=== PATIENT | male | born 1950 | race Caucasian/White ===

== ENCOUNTER → 2016-05-18 | Outpatient (CLI) | payer BC ==
[~2016-05-18] MED LIST: CHOL20009 PO; CLL250 PO; CLOT10TR PO; CYAN100020 PO; HYT/2 PO; INSDGI SC; LORA-554 PO; LOSA1TAB38 PO; MAGN400T6 PO; MELA1TAB22 PO; MULT-506 PO; OMEP20CA59 PO; PRAV20TA PO; PRED-301 PO; PRG5 PO
== END | disposition home or self-care (01) ==
LOC: C.PATHSPEC 16:57
PROVIDERS: ATTEND Urology
DX: N40.1 Benign prostatic hyperplasia with lower urinary tract symptoms (principal); C67.9 Malignant neoplasm of bladder, unspecified

== ENCOUNTER 2019-06-06 13:43 | Inpatient (IN) ==
[2019-06-06] MEDS ORDERED: ACETAMINOPHEN 500 MG TAB PO STA (14:40)
--- NOTE | 2019-06-06 14:57 | XRay Report ---
XR chest 1V portable HISTORY: 69 years-old Male SEPSIS acute sepsis COMPARISON: Chest radiograph 06/01/2018 TECHNIQUE: Portable AP view of the chest FINDINGS: Cardiac silhouette is enlarged. Prior median sternotomy. No pneumothorax, pleural effusion, focal air space consolidation or overt pulmonary edema. Minimal bibasilar atelectasis/scarring. Degenerative ch anges of the shoulders and spine. Surgical clips project over the left lung base. IMPRESSION: 1. Cardiomegaly without acute process. 2. Mild left basilar densities suggest atelectasis/scarring. ACT 112: Negative or not required by law. The above report was generated using voice recognition software. It may contain grammatical, syntax o r spelling errors. Electronically signed by: Leo Mancuso M.D. 06/06/2019 2:56 PM
[2019-06-06 15:54] LABS: Basophils # (auto) 0.01 K/uL (0-0.2); Basophils % (auto) 0.1 %; Hematocrit (blood only) 44.7 % (42-52); Hemoglobin 14.7 g/dL (14.0-18.0); Immature Granulocytes # (auto) 0.02 K/uL (0.00-0.02); Immature Granulocytes % (auto) 0.3 %; Lymphocytes # (auto) 0.85 K/uL (1.2-3.4); Lymphocytes % (auto) 12.3 %; Mean Corpuscular Hemoglobin 28.5 pg (25-34); Mean Corpuscular Hgb Conc 32.9 g/dL (32-36); Mean Corpuscular Volume 86.8 fL (80-100); Mean Platelet Volume 9.5 fL (7.4-10.4); Monocytes % (auto) 20.3 %; Neutrophils # (auto) 4.62 K/uL (1.4-6.5); Platelet Count 185 K/uL (130-400); RDW Coefficient of Variation 14.5 % (11.5-14.5); RDW Standard Deviation 46.2 fL (36.4-46.3); Red Blood Count 5.15 M/uL (4.7-6.1)
[2019-06-06 15:58] LABS: Potassium 3.9 mmol/L (3.5-5.1)
[2019-06-06 16:03] LABS: Albumin Level 3.7 gm/dl (3.4-5.0); BUN Creatinine Ratio 19.4 (10-20); Creatinine Clr Calc Pharmacy 57.4 ml/min; Est GFR (African American) 57.2; Est GFR (Non-African American) 49.3; Magnesium 2.1 mg/dl (1.8-2.4)
[2019-06-06 16:06] LABS: INR 1.2 (0.9-1.1); Partial Thromboplastin Ratio 1.2; Partial Thromboplastin Time 31.6 Seconds (21.0-31.0); Prothrombin Time 11.7 Seconds (9.0-12.0)
[2019-06-06 16:08] LABS: Albumin Globulin Ratio 0.9 (0.9-2); Bilirubin,Total 1.4 mg/dl (0.2-1); Globulin 3.9 gm/dl (2.5-4.0); Total Protein 7.6 gm/dl (6.4-8.2); Troponin I 0.025 ng/ml (0-0.045)
[2019-06-06 16:11] LABS: Influenza A virus by PCR Neg for Influ A (Neg); Influenza B virus by PCR Neg for Influ B (Neg)
--- NOTE | 2019-06-06 16:17 | Electrocardiogram Report ---
Test Reason : Blood Pressure : / mmHG Vent. 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
[2019-06-06] MEDS ORDERED: OPTIRAY 320 125ml IV PRN (17:48)
--- NOTE | 2019-06-06 18:13 | CT Scan Report ---
CT ANGIOGRAPHY OF THE CHEST, PULMONARY EMBOLUS PROTOCOL CLINICAL HISTORY: Shortness of breath. Chest pain. COMPARISON STUDY: Chest radiograph June 01, 2018 and June 06, 2019. TECHNIQUE: Following IV administration of 118 mL of Optiray-320, helical axial images of the chest we re obtained utilizing the pulmonary embolus protocol. Maximal intensity projections and sagittal and coronal reformats were viewed on an independent 3D workstation. IV contrast was administered withou t complication. Automated exposure control was utilized for the study. A dose lowering technique wa s utilized adhering to the principles of ALARA. CT DOSE: 642.31 mGy.cm FINDINGS: Moderate enlargement of the transplanted heart is noted. Moderate dilatation of the right heart chambers is noted. The IVC and hepatic veins are dilated with reflux of contrast. No pneumothor ax or pleural effusion. No central or lobar pulmonary emboli are identified. The segmental and subseg mental pulmonary arteries are suboptimally assessed due to respiratory motion. There are mild airspac e opacities within the left lower lobes and right upper lobes with tree-in-bud ill-defined opacities. A 7 x 3.4 cm right lower lobe opacity with mild pleural thickening and swelling] represents round at electasis. No suspicious osseous lesions are noted. Upper abdomen demonstrates slight nodularity of t he liver surface. Calcified thoracic lymph nodes are present. IMPRESSION: 1. No central or lobar pulmonary emboli. Segmental and subsegmental pulmonary arteries suboptimally a ssessed due to respiratory motion. 2. Mild left lower lobe and right upper lobe airspace opacities which favor an infectious process suc h as bronchiolitis/bronchopneumonia. 3. Dilatation of the right heart chambers, IVC and hepatic veins with reflux of contrast. This may in dicate right heart dysfunction. 4. 7 x 3.4 cm right lower lobe subpleural opacity consistent with round atelectasis. ACT 112: Negative or not required by law. Electronically signed by: Abrahan Almanzar M.D. 06/06/2019 6:11 PM
[2019-06-06] MEDS ORDERED: PIPERACILL/TAZOBAC CONSULT ACTIVE PRN ×2 (18:16→20:09)
[2019-06-06] MEDS ORDERED: PIPERACILLIN/TAZOBACTAM 4.5 GM/120 ML BAG IV ONE (18:16)
[2019-06-06 18:54] LABS: Appearance Urine Clear (Clear); Bacteria Urine Automated Negative (Negative); Bilirubin Urine Negative (Negative); Blood Urine 1+ (Negative); Color Urine Dark Yellow; Glucose Urine UA Negative (Negative); Ketones Urine 1+ (Negative); Leukocyte Esterase Urine Negative (Negative); Nitrite Urine Negative (Negative); Protein Urine Trace (Negative); Specific Gravity Urine > 1.045 (1.000-1.030); Urobilinogen Urine Negative (Negative); pH Urine 5.5 (4.5-7.5)
--- NOTE | 2019-06-06 19:30 | History & Physical Report ---
Date of Service June 06, 2019 Assessment & Plan (1) Tachypnea: PNA noted on CTA WBC WNL in the setting of chronic immune suppression Tachycardia Nebs x1 with mucomyst, PRN after Blood cx pending UA neg Hb WNL, electrolytes WNL, BS 110 Flu neg BNP with slight elevation Trop 0.025, serials pending EKG with RBBB (2) ARF (acute renal failure): Denies prior hx of elevated cr, no other labs in system Likely dehydration due to above and minimal PO intake Cr 1.4 on admission Monitor with gentle IVF PRN bumex (3) CHF (congestive heart failure): continue home meds Monitor with gentle IVF PRN bumex (4) Diabetes mellitus: SSI PRN Lantus only at home A1c pending (5) Depression: continue home meds (6) Hypertension: continue home meds (7) History of heart transplant: Prednisone, suppressant meds to bring meds from home (8) DVT prophylaxis: Heparin for DVT proph History of Present Illness Primary Care Provider: Guillermo Vega, III, [place] [place] 69 y/o M c/o cough and congestion. Pt states this started around Tuesday and has continued to worsen. No SOB when he is not coughing. Cough feels like something is "stuck and I can't get rid of it". Has felt like he might have a slight fever, but has not taken his temp. Appetite has been down and there has been minimal PO intake the last few days. States he has never been sick like this prior. No hx of inhaler use. Pt did not take today's bumex dosing due to decreased PO intake. He does have some baseline LE swelling. Allergies Allergy/AdvReac Type Severity Reaction Status Date / Time shellfish derived Allergy Severe HIVES Verified 06/06/19 16:41 naproxen Allergy Unknown BROKE OUT Verified 06/06/19 16:41 IN A SWEAT oxycodone AdvReac Intermediate HALLUCINATI Verified 06/06/19 16:41 ON Home Medications Home Medications Medication Instructions Recorded Confirmed Type cholecalciferol (vitamin D3) 50 2,000 unit PO DAILY tab 10/17/18 06/06/19 History mcg (2,000 unit) tablet losartan 100 mg tablet 100 mg PO DAILY tab 10/17/18 06/06/19 History magnesium oxide 400 mg (241.3 mg 400 mg PO DAILY tab 10/17/18 06/06/19 History magnesium) tablet pravastatin 20 mg tablet 20 mg PO HS tab 10/17/18 06/06/19 History melatonin 10 mg capsule 10 mg PO HS PRN 11/07/18 06/06/19 History multivitamin 1 tab PO DAILY 11/07/18 06/06/19 History omeprazole 20 mg capsule,delayed 20 mg PO BID cap 11/07/18 06/06/19 History release tacrolimus 0.5 mg capsule 0.5 mg PO .COMPLEX cap 11/07/18 06/06/19 History insulin glargine 100 unit/mL (3 5 - 10 units SUBCUT DAILY #90 ml 11/28/18 06/06/19 Rx mL) subcutaneous pen blood sugar diagnostic #400 ea 04/11/19 05/10/19 Rx bupropion HCl 100 mg tablet,12 hr 100 mg PO DAILY #90 ea 05/10/19 06/06/19 Rx sustained-release semaglutide 0.25 mg SQ WEEKLY 90 Days #6 ml 05/10/19 06/06/19 Rx tamsulosin 0.4 mg capsule 0.4 mg PO DAILY 05/10/19 06/06/19 History bumetanide 1 mg PO BID 06/06/19 06/06/19 History prednisone 5 mg PO DAILY 06/06/19 06/06/19 History tadalafil [Cialis] 5 mg PO DAILY PRN 06/06/19 06/06/19 History Past Med/Surg History Medical History Depression (Acute) Diabetes mellitus (Acute) Hearing difficulty (Acute) History of subarachnoid hemorrhage (Acute) Hypertension (Acute) Insomnia (Acute) Male erectile disorder of organic origin (Acute) Need for hepatitis C screening test (Acute) Vitamin D insufficiency (Acute) Surgical History History of heart transplant (Acute) Family History Father Heart disease Denies family history of Colon cancer Ovarian cancer Prostate cancer Myocardial infarction Breast cancer Social History Preferred Language: [place] Communication Ability: Effective Visual Impairment: No Limitations Hearing Ability: Normal marital status: Current Living Situation: Spouse current occupational status: retired Feels Safe at Home: Yes Smoking Status: Former smoker Tobacco Type: cigarettes ; Age Quit Using Tobacco: 28 ; packs per day: 0.5 ; Cigarettes Per Day: 3-4 ; Hx Alcohol Use: Yes Alcohol type: wine and hard liquor Alcohol Intake Frequency: Daily Alcohol Intake Frequency Comment: 2-3 daily Hx Substance Use: No Childhood Exposure to Second-Hand Smoke: No Dental Care, Regularly: Yes Physical Activity Frequency: 3-4 Times per Week Seatbelt Use: always Sunscreen Use: Yes Review of Systems Review of Systems: Pertinent positives and negatives reviewed in HPI--all others negative Physical Exam Constitutional: WD/WN, vitals as above + ill appearing Eyes: normal visual weinberg by confrontation and + anicteric sclerae Neck: normal visual inspection and trachea midline Respiratory: normal respiratory effort and + cough; no respiratory distress Auscultation: + diminished lung sounds, + crackles, + rales and + wheezes Cardiovascular: Rate/Rhythm: regular rhythm and + tachycardic Gastrointestinal (Abdomen): Inspection/Auscultation: abdomen not distended Percussion/Palpation: abdomen soft; abdomen nontender Musculoskeletal: Head/Neck/Chest: normocephalic and head atraumatic 1+ pitting LE edema, peripheral pulses intact Skin: no rashes, warm and dry Neurologic: awake; not confused Speech / Cognition: normal speech Psychiatric: A+Ox3, euthymic affect Results & Data Vital Signs (Past 12 Hours) Vital Signs Temp Pulse Pulse Resp BP BP Pulse Ox 06/06/19 18:45 103 H 19 93 06/06/19 18:31 103 H 16 144/99 H 93 06/06/19 18:15 103 H 31 H 94 06/06/19 18:00 108 H 20 93 06/06/19 17:49 104 H 19 93 06/06/19 17:32 108 H 21 91 06/06/19 17:31 106 H 18 129/89 93 06/06/19 17:15 107 H 22 94 06/06/19 17:01 108 H 23 115/88 92 06/06/19 17:00 106 H 22 92 06/06/19 16:45 108 H 23 92 06/06/19 16:31 109 H 27 H 133/87 92 06/06/19 16:21 37.0 C 06/06/19 16:15 111 H 26 H 92 06/06/19 16:01 111 H 21 126/88 92 06/06/19 15:45 113 H 28 H 92 06/06/19 15:31 114 H 29 H 136/90 92 06/06/19 15:30 115 H 19 126/85 93 06/06/19 14:31 37.8 C H 109 H 16 131/88 92 Diagnostic Findings CXR: neg for acute CTA: b/l PNA, neg for PE ECG Rhythm: sinus tachycardia Findings: + RBBB Code Status & VTE Plan Code Status Full code VTE Prophylaxis Plan VTE Prophylaxis will be ordered: Yes PG Care Time/CCT Total # of Minutes Spent Total Time Spent with Patient: Total time spent is greater than 50% in coordination of care (as documented) at patient's floor/unit and/or counseling patient: Coding Level of Care Code 92488 Initial Inpt Care Lvl 3 Diagnoses Tachypnea R06.82 ARF (acute renal failure) N17.9 CHF (congestive heart failure) I50.9 Heart failure type: unspecified Heart failure chronicity: unspecified Diabetes mellitus E11.9; Z79.4 Diabetes mellitus type: type 2 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 Diabetes mellitus complication status: without complication Depression F32.9 Depression Type: unspecified Hypertension I10 Hypertension type: essential hypertension History of heart transplant Z94.1 DVT prophylaxis Z29.9 (1) Hypertension Hypertension type: essential hypertension Qualified Code(s): I10 - Essential (primary) hypertension (2) Diabetes mellitus Diabetes mellitus type: type 2 Diabetes mellitus retirement insulin use: with retirement use Diabetes mellitus complication status: without complication Qualified Code(s): E11.9 - Type 2 diabetes mellitus without complications; Z79.4 - shelter (current) use of insulin (3) Depression Depression Type: unspecified Qualified Code(s): F32.9 - Major depressive disorder, single episode, unspecified (4) CHF (congestive heart failure) Heart failure type: unspecified Heart failure chronicity: unspecified Qualified Code(s): I50.9 - Heart failure, unspecified
--- NOTE | 2019-06-06 19:55 | Emergency Department Note ---
Entered by Drea Rapp acting as a scribe for History of Present Illness General Chief complaint: Cough Stated complaint: COUGH, CHEST CONGESTION Time Seen by Provider: 06/06/19 14:37 Source: patient History of Present Illness Onset (ago): day(s) 4 Location: chest Pain Consistency: + other (persistent) Maximum Pain Intensity: 3 Quality: + other (cough (productive)) Associated symptoms: + denies other symptoms (chest pain, shortness of breath, abdominal pain, unusual pain/swelling in legs) and + other (chest congestion, chest "gurgling," elevated pulse, elevated temperature) The patient is a 69 year old male that is presenting to the Emergency Room with complaints of a persistent productive coughing that started 4 days ago. The patient reports that he has some associated chest congestion. He states that he has some gurgling in his chest. He reports that his temperature and pulse are elevated. He denies any chest pain, shortness of breath, abdominal pain, or unusual swelling/pain in his legs. He notes that he was being seen by his PCP at [facility] when he was referred to the ED for his symptoms. He states that his prov ider was concerned by his respiratory and cardiac symptoms given his history of a heart transplant in 2007. He states that he is taking anti-rejection medication but denies any blood thinner use. He reports that he is followed by a inseam trimming machine operator in [place]. He denies any anti-depressant use. The patient notes that he sleeps on an elevated bed and is unsure if his symptoms worsen with lying flat. Home Medications Home Medications Medication Instructions Recorded Confirmed Type cholecalciferol (vitamin D3) 50 2,000 unit PO DAILY tab 10/17/18 06/06/19 History mcg (2,000 unit) tablet losartan 100 mg tablet 100 mg PO DAILY tab 10/17/18 06/06/19 History magnesium oxide 400 mg (241.3 mg 400 mg PO DAILY tab 10/17/18 06/06/19 History magnesium) tablet pravastatin 20 mg tablet 20 mg PO HS tab 10/17/18 06/06/19 History melatonin 10 mg capsule 10 mg PO HS PRN 11/07/18 06/06/19 History multivitamin 1 tab PO DAILY 11/07/18 06/06/19 History omeprazole 20 mg capsule,delayed 20 mg PO BID cap 11/07/18 06/06/19 History release tacrolimus 0.5 mg capsule 0.5 mg PO .COMPLEX cap 11/07/18 06/06/19 History insulin glargine 100 unit/mL (3 5 - 10 units SUBCUT DAILY #90 ml 11/28/18 06/06/19 Rx mL) subcutaneous pen blood sugar diagnostic #400 ea 04/11/19 05/10/19 Rx bupropion HCl 100 mg tablet,12 hr 100 mg PO DAILY #90 ea 05/10/19 06/06/19 Rx sustained-release semaglutide 0.25 mg SQ WEEKLY 90 Days #6 ml 05/10/19 06/06/19 Rx tamsulosin 0.4 mg capsule 0.4 mg PO DAILY 05/10/19 06/06/19 History bumetanide 1 mg PO BID 06/06/19 06/06/19 History prednisone 5 mg PO DAILY 06/06/19 06/06/19 History tadalafil [Cialis] 5 mg PO DAILY PRN 06/06/19 06/06/19 History Allergies Allergy/AdvReac Type Severity Reaction Status Date / Time shellfish derived Allergy Severe HIVES Verified 06/06/19 16:41 naproxen Allergy Unknown BROKE OUT Verified 06/06/19 16:41 IN A SWEAT oxycodone AdvReac Intermediate HALLUCINATI Verified 06/06/19 16:41 ON Past Med/Surg History Medical History Depression (Acute) Diabetes mellitus (Acute) Hearing difficulty (Acute) History of subarachnoid hemorrhage (Acute) Hypertension (Acute) Insomnia (Acute) Male erectile disorder of organic origin (Acute) Need for hepatitis C screening test (Acute) Vitamin D insufficiency (Acute) Surgical History History of heart transplant (Acute) Family History Father Heart disease Denies family history of Colon cancer Ovarian cancer Prostate cancer Myocardial infarction Breast cancer Social History Preferred Language: [place] Communication Ability: Effective Visual Impairment: No Limitations Hearing Ability: Normal Supervisor Powdered Sugar Required: No Beliefs That Will Affect Care: None marital status: Current Living Situation: Spouse current occupational status: retired Feels Safe at Home: Yes Smoking Status: Former smoker Tobacco Type: cigarettes and smokeless tobacco ; Age Quit Using Tobacco: 28 ; packs per day: 0.5 ; Cigarettes Per Day: 3-4 ; Hx Alcohol Use: Yes Alcohol type: wine and hard liquor Alcohol Intake Frequency: Daily Alcohol Intake Frequency Comment: 2-3 daily Hx Substance Use: No Childhood Exposure to Second-Hand Smoke: No Dental Care, Regularly: Yes Physical Activity Frequency: 3-4 Times per Week Seatbelt Use: always Sunscreen Use: Yes Review of Systems See HPI for pertinent positives & negatives. and A total of 10 systems reviewed and were otherwise negative Physical Exam Vital Signs Vital Signs - 24 hr 06/06/19 14:31 06/06/19 15:30 06/06/19 15:31 Temperature 37.8 C H Temperature Source Oral Pulse Rate 109 H 114 H Pulse Rate [Apical] 115 H Pulse Rate from SpO2 Sensor 114 H Respiratory Rate 16 19 29 H Respiratory Effort / Characteristics Non-Labored Respiratory Depth Normal Blood Pressure 131/88 136/90 Blood Pressure [Right Arm] 126/85 Blood Pressure Mean 102 97 Blood Pressure Mean [Right Arm] 98 Blood Pressure Position Sitting Pulse Oximetry 92 93 92 Oxygen Delivery Method Room Air Room Air Sepsis Recent Fever Within 48 Hours No Sepsis New/Unexplained Change in Mental Status No Sepsis Action Taken by Nursing No Action Required 06/06/19 15:45 06/06/19 16:01 06/06/19 16:15 Temperature Temperature Source Pulse Rate 113 H 111 H 111 H Pulse Rate [Apical] Pulse Rate from SpO2 Sensor 113 H 112 H 107 H Respiratory Rate 28 H 21 26 H Respiratory Effort / Characteristics Respiratory Depth Blood Pressure 126/88 Blood Pressure [Right Arm] Blood Pressure Mean 109 Blood Pressure Mean [Right Arm] Blood Pressure Position Pulse Oximetry 92 92 92 Oxygen Delivery Method Sepsis Recent Fever Within 48 Hours Sepsis New/Unexplained Change in Mental Status Sepsis Action Taken by Nursing 06/06/19 16:21 06/06/19 16:31 06/06/19 16:45 Temperature 37.0 C Temperature Source Oral Pulse Rate 109 H 108 H Pulse Rate [Apical] Pulse Rate from SpO2 Sensor 108 H 108 H Respiratory Rate 27 H 23 Respiratory Effort / Characteristics Respiratory Depth Blood Pressure 133/87 Blood Pressure [Right Arm] Blood Pressure Mean 101 Blood Pressure Mean [Right Arm] Blood Pressure Position Pulse Oximetry 92 92 Oxygen Delivery Method Sepsis Recent Fever Within 48 Hours Sepsis New/Unexplained Change in Mental Status Sepsis Action Taken by Nursing 06/06/19 17:00 06/06/19 17:01 06/06/19 17:15 Temperature Temperature Source Pulse Rate 106 H 108 H 107 H Pulse Rate [Apical] Pulse Rate from SpO2 Sensor 103 H 104 H 104 H Respiratory Rate 22 23 22 Respiratory Effort / Characteristics Respiratory Depth Blood Pressure 115/88 Blood Pressure [Right Arm] Blood Pressure Mean 90 Blood Pressure Mean [Right Arm] Blood Pressure Position Pulse Oximetry 92 92 94 Oxygen Delivery Method Sepsis Recent Fever Within 48 Hours Sepsis New/Unexplained Change in Mental Status Sepsis Action Taken by Nursing 06/06/19 17:31 06/06/19 17:32 06/06/19 17:49 Temperature Temperature Source Pulse Rate 106 H 108 H 104 H Pulse Rate [Apical] Pulse Rate from SpO2 Sensor 106 H 105 H 104 H Respiratory Rate 18 21 19 Respiratory Effort / Characteristics Respiratory Depth Blood Pressure 129/89 Blood Pressure [Right Arm] Blood Pressure Mean 97 Blood Pressure Mean [Right Arm] Blood Pressure Position Pulse Oximetry 93 91 93 Oxygen Delivery Method Sepsis Recent Fever Within 48 Hours Sepsis New/Unexplained Change in Mental Status Sepsis Action Taken by Nursing 06/06/19 18:00 06/06/19 18:15 06/06/19 18:31 Temperature Temperature Source Pulse Rate 108 H 103 H 103 H Pulse Rate [Apical] Pulse Rate from SpO2 Sensor 93 H 101 H 103 H Respiratory Rate 20 31 H 16 Respiratory Effort / Characteristics Respiratory Depth Blood Pressure 144/99 H Blood Pressure [Right Arm] Blood Pressure Mean 108 Blood Pressure Mean [Right Arm] Blood Pressure Position Pulse Oximetry 93 94 93 Oxygen Delivery Method Sepsis Recent Fever Within 48 Hours Sepsis New/Unexplained Change in Mental Status Sepsis Action Taken by Nursing 06/06/19 18:45 Temperature Temperature Source Pulse Rate 103 H Pulse Rate [Apical] Pulse Rate from SpO2 Sensor 98 H Respiratory Rate 19 Respiratory Effort / Characteristics Respiratory Depth Blood Pressure Blood Pressure [Right Arm] Blood Pressure Mean Blood Pressure Mean [Right Arm] Blood Pressure Position Pulse Oximetry 93 Oxygen Delivery Method Sepsis Recent Fever Within 48 Hours Sepsis New/Unexplained Change in Mental Status Sepsis Action Taken by Nursing GENERAL: Patient is awake, alert, and in no acute distress.Patient is resting comfortably and showing no signs of anxiety EYES: The conjunctivae are clear. The pupils are round and reactive. EARS, NOSE, MOUTH AND THROAT: The nose is without any evidence of any deformity. Mucous membranes are moist.Tongue is midline NECK: The neck is nontender and supple. RESPIRATORY: Lung sounds diminished in both bases. Rales in both bases. Mild conversational dyspnea. CARDIOVASCULAR: Tachycardic rate and regular rhythm noted to auscultation. No definite murmur noted. GASTROINTESTINAL: The abdomen is soft. Bowel sounds are present in all quadrants. Abdomen is nontender. MUSCULOSKELETAL/EXTREMITIES: There is no evidence of gross deformity. Full range of motion is noted in the hips and shoulders. SKIN: There is no obvious evidence of any rash. There are no petechiae, pallor or cyanosis noted. Pedal edema bilaterally. NEUROLOGIC: Patient is awake alert and oriented x3. Course Course 1439:The patient was evaluated in room C01B. A complete history and physical examination was performed. 1735: I updated the patient on his current lab and imaging results. A CT chest has been ordered for further evaluation. 1832: I discussed the patient's case with Dr. King, [facility], who will evaluate the patient for further management and care. 1845: Upon reevaluation, the patient is resting comfortably. I discussed laboratory and radiographic results with the patient. He verbalized agreement of the treatment plan. The patient will be evaluated for further management and care. Administered Medications Bumetanide (Bumex) 1 mg PO [id number] MICK Stop: 07/06/19 20:59 Last Admin: 06/06/19 21:24 Dose: 1 mg Documented by: [id number] Heparin Sodium (Porcine) (Heparin Sodium (Porcine)) 5,000 units SQ Q8 MICK Stop: 07/06/19 21:59 Last Admin: 06/06/19 21:33 Dose: Not Given Documented by: [id number] Potassium Chloride/Sodium Chloride (Normal Saline W/20 Meq Kcl) 20 meq in 1,000 mls @ 50 mls/hr IV .Q20H MICK Stop: 07/06/19 20:59 Last Admin: 06/06/19 21:22 Dose: 50 mls/hr Documented by: [id number] Insulin Aspart (Novolog Flexpen) 0 units SC ACHS MICK Stop: 07/06/19 20:59 Last Admin: 06/06/19 21:20 Dose: Not Given Documented by: [id number] Cosigned by: [id number] Ioversol (Optiray 320 125ml) 118 ml IV ONCE PRN PRN Reason: Interaction Checking Stop: 06/10/19 17:47 Last Admin: 06/06/19 17:48 Dose: 118 ml Documented by: [id number] Pantoprazole Sodium (Protonix) 40 mg PO BID MICK Stop: 07/06/19 20:59 Last Admin: 06/06/19 21:25 Dose: 40 mg Documented by: [id number] Pravastatin Sodium (Pravachol) 20 mg PO HS MICK Stop: 07/06/19 20:59 Last Admin: 06/06/19 21:24 Dose: 20 mg Documented by: [id number] Tacrolimus (Prograf) 0.5 mg PO HS MICK Stop: 07/06/19 20:59 Last Admin: 06/06/19 21:24 Dose: 0.5 mg Documented by: [id number] Discontinued Medications Acetaminophen (Tylenol) 1,000 mg PO NOW STA Stop: 06/06/19 14:41 Last Admin: 06/06/19 15:06 Dose: 1,000 mg Documented by: [id number] Acetylcysteine (Mucomyst 20%) 5 ml INH ONE ONE Stop: 06/06/19 20:10 Last Admin: 06/06/19 20:47 Dose: 5 ml Documented by: [id number] Albuterol (Duoneb) 3 ml NEB NOW STA Stop: 06/06/19 20:10 Last Admin: 06/06/19 20:46 Dose: 3 ml Documented by: [id number] Piperacillin Sod/Tazobactam Sod (Zosyn) 4.5 gm in 120 mls @ 240 mls/hr IV NOW ONE Stop: 06/06/19 18:45 Last Infusion: 06/06/19 19:33 Dose: 0 mls/hr Documented by: [id number] Admin: 06/06/19 18:46 Dose: 240 mls/hr Documented by: [id number] Medical Decision Making Differential Diagnosis Differential diagnoses includes but is not limited to pneumonia, bronchitis, COPD/Asthma exacerbation, pneumothorax, pulmonary embolism, congestive heart failure, acute coronary syndrome Medical Records Attestation: I reviewed the patient's medical records. Home Medications Current Medication List: was personally reviewed by me Laboratory Data Attestation: I reviewed the patient's lab results. Result diagrams: 06/06/19 15:18 06/06/19 15:18 Lab Results 06/06/19 06/06/19 06/06/19 Range/Units 15:18 15:18 15:18 WBC 6.90 (4.8-10.8) K/uL RBC 5.15 (4.7-6.1) M/uL Hgb 14.7 (14.0-18.0) g/dL Hct 44.7 (42-52) % MCV 86.8 (80-100) fL MCH 28.5 (25-34) pg MCHC 32.9 (32-36) g/dL RDW Std Deviation 46.2 (36.4-46.3) fL RDW Coeff of Miranda 14.5 (11.5-14.5) % Plt Count 185 (130-400) K/uL MPV 9.5 (7.4-10.4) fL Immature Gran % (Auto) 0.3 % Neut % (Auto) 67.0 % Lymph % (Auto) 12.3 % Hall % (Auto) 20.3 % Eos % (Auto) 0.0 % Baso % (Auto) 0.1 % Immature Gran # (Auto) 0.02 (0.00-0.02) K/uL Neut # (Auto) 4.62 (1.4-6.5) K/uL Lymph # (Auto) 0.85 L (1.2-3.4) K/uL Hall # (Auto) 1.40 H (0.11-0.59) K/uL Eos # (Auto) 0.00 (0-0.5) K/uL Baso # (Auto) 0.01 (0-0.2) K/uL PT 11.7 (9.0-12.0) Seconds INR 1.2 H (0.9-1.1) APTT 31.6 H (21.0-31.0) Seconds PTT Ratio 1.2 Sodium 137 (136-145) mmol/L Potassium 3.9 (3.5-5.1) mmol/L Chloride 102 (98-107) mmol/L Carbon Dioxide 26 (21-32) mmol/L Anion Gap 9.0 (3-11) BUN 27 H (7-18) mg/dl Creatinine 1.42 H (0.6-1.4) mg/dl Est Cr Clr Drug Dosing 57.4 ml/min Est GFR ( Amer) 57.2 Est GFR (Non-Af Amer) 49.3 BUN/Creatinine Ratio 19.4 (10-20) Glucose 110 H (70-99) mg/dl Lactate (0.4-2.0) mmol/L Calcium 9.0 (8.5-10.1) mg/dl Magnesium 2.1 (1.8-2.4) mg/dl Total Bilirubin 1.4 H (0.2-1) mg/dl AST 40 H (15-37) U/L ALT 32 (12-78) U/L Alkaline Phosphatase 76 (45-117) U/L Troponin I 0.025 (0-0.045) ng/ml NT-Pro-B Natriuret Pep 1244 H (0-900) pg/ml Total Protein 7.6 (6.4-8.2) gm/dl Albumin 3.7 (3.4-5.0) gm/dl Globulin 3.9 (2.5-4.0) gm/dl Albumin/Globulin Ratio 0.9 (0.9-2) Procalcitonin (0-0.5) ng/ml Urine Color Urine Appearance (Clear) Urine pH (4.5-7.5) Ur Specific [place] (1.000-1.030) Urine Protein (Negative) Urine Glucose (UA) (Negative) Urine Ketones (Negative) Urine Blood (Negative) Urine Nitrite (Negative) Urine Bilirubin (Negative) Urine Urobilinogen (Negative) Ur Leukocyte Esterase (Negative) Urine WBC (Auto) (0-5) /hpf Urine RBC (Auto) (0-4) /hpf U Hyaline Cast (Auto) (0-5) /lpf U Epithel Cells (Auto) (0-5) /lpf Urine Bacteria (Auto) (Negative) Influenza Type A (PCR) (Neg) Influenza Type B (PCR) (Neg) 06/06/19 06/06/19 06/06/19 Range/Units 15:18 15:19 15:28 WBC (4.8-10.8) K/uL RBC (4.7-6.1) M/uL Hgb (14.0-18.0) g/dL Hct (42-52) % MCV (80-100) fL MCH (25-34) pg MCHC (32-36) g/dL RDW Std Deviation (36.4-46.3) fL RDW Coeff of Miranda (11.5-14.5) % Plt Count (130-400) K/uL MPV (7.4-10.4) fL Immature Gran % (Auto) % Neut % (Auto) % Lymph % (Auto) % Hall % (Auto) % Eos % (Auto) % Baso % (Auto) % Immature Gran # (Auto) (0.00-0.02) K/uL Neut # (Auto) (1.4-6.5) K/uL Lymph # (Auto) (1.2-3.4) K/uL Hall # (Auto) (0.11-0.59) K/uL Eos # (Auto) (0-0.5) K/uL Baso # (Auto) (0-0.2) K/uL PT (9.0-12.0) Seconds INR (0.9-1.1) APTT (21.0-31.0) Seconds PTT Ratio Sodium (136-145) mmol/L Potassium (3.5-5.1) mmol/L Chloride (98-107) mmol/L Carbon Dioxide (21-32) mmol/L Anion Gap (3-11) BUN (7-18) mg/dl Creatinine (0.6-1.4) mg/dl Est Cr Clr Drug Dosing ml/min Est GFR ( Amer) Est GFR (Non-Af Amer) BUN/Creatinine Ratio (10-20) Glucose (70-99) mg/dl Lactate 1.2 (0.4-2.0) mmol/L Calcium (8.5-10.1) mg/dl Magnesium (1.8-2.4) mg/dl Total Bilirubin (0.2-1) mg/dl AST (15-37) U/L ALT (12-78) U/L Alkaline Phosphatase (45-117) U/L Troponin I (0-0.045) ng/ml NT-Pro-B Natriuret Pep (0-900) pg/ml Total Protein (6.4-8.2) gm/dl Albumin (3.4-5.0) gm/dl Globulin (2.5-4.0) gm/dl Albumin/Globulin Ratio (0.9-2) Procalcitonin 0.19 (0-0.5) ng/ml Urine Color Urine Appearance (Clear) Urine pH (4.5-7.5) Ur Specific [place] (1.000-1.030) Urine Protein (Negative) Urine Glucose (UA) (Negative) Urine Ketones (Negative) Urine Blood (Negative) Urine Nitrite (Negative) Urine Bilirubin (Negative) Urine Urobilinogen (Negative) Ur Leukocyte Esterase (Negative) Urine WBC (Auto) (0-5) /hpf Urine RBC (Auto) (0-4) /hpf U Hyaline Cast (Auto) (0-5) /lpf U Epithel Cells (Auto) (0-5) /lpf Urine Bacteria (Auto) (Negative) Influenza Type A (PCR) Neg for Influ A (Neg) Influenza Type B (PCR) Neg for Influ B (Neg) 06/06/19 Range/Units 18:25 WBC (4.8-10.8) K/uL RBC (4.7-6.1) M/uL Hgb (14.0-18.0) g/dL Hct (42-52) % MCV (80-100) fL MCH (25-34) pg MCHC (32-36) g/dL RDW Std Deviation (36.4-46.3) fL RDW Coeff of Miranda (11.5-14.5) % Plt Count (130-400) K/uL MPV (7.4-10.4) fL Immature Gran % (Auto) % Neut % (Auto) % Lymph % (Auto) % Hall % (Auto) % Eos % (Auto) % Baso % (Auto) % Immature Gran # (Auto) (0.00-0.02) K/uL Neut # (Auto) (1.4-6.5) K/uL Lymph # (Auto) (1.2-3.4) K/uL Hall # (Auto) (0.11-0.59) K/uL Eos # (Auto) (0-0.5) K/uL Baso # (Auto) (0-0.2) K/uL PT (9.0-12.0) Seconds INR (0.9-1.1) APTT (21.0-31.0) Seconds PTT Ratio Sodium (136-145) mmol/L Potassium (3.5-5.1) mmol/L Chloride (98-107) mmol/L Carbon Dioxide (21-32) mmol/L Anion Gap (3-11) BUN (7-18) mg/dl Creatinine (0.6-1.4) mg/dl Est Cr Clr Drug Dosing ml/min Est GFR ( Amer) Est GFR (Non-Af Amer) BUN/Creatinine Ratio (10-20) Glucose (70-99) mg/dl Lactate (0.4-2.0) mmol/L Calcium (8.5-10.1) mg/dl Magnesium (1.8-2.4) mg/dl Total Bilirubin (0.2-1) mg/dl AST (15-37) U/L ALT (12-78) U/L Alkaline Phosphatase (45-117) U/L Troponin I (0-0.045) ng/ml NT-Pro-B Natriuret Pep (0-900) pg/ml Total Protein (6.4-8.2) gm/dl Albumin (3.4-5.0) gm/dl Globulin (2.5-4.0) gm/dl Albumin/Globulin Ratio (0.9-2) Procalcitonin (0-0.5) ng/ml Urine Color Dark Yellow Urine Appearance Clear (Clear) Urine pH 5.5 (4.5-7.5) Ur Specific [place] > 1.045 H (1.000-1.030) Urine Protein Trace H (Negative) Urine Glucose (UA) Negative (Negative) Urine Ketones 1+ H (Negative) Urine Blood 1+ H (Negative) Urine Nitrite Negative (Negative) Urine Bilirubin Negative (Negative) Urine Urobilinogen Negative (Negative) Ur Leukocyte Esterase Negative (Negative) Urine WBC (Auto) 1-5 (0-5) /hpf Urine RBC (Auto) 10-30 H (0-4) /hpf U Hyaline Cast (Auto) 1-5 (0-5) /lpf U Epithel Cells (Auto) 5-10 H (0-5) /lpf Urine Bacteria (Auto) Negative (Negative) Influenza Type A (PCR) (Neg) Influenza Type B (PCR) (Neg) Imaging Data Radiologist's Impression: Radiology results as stated below per my review and the radiologist's interpretation: XR chest 1V portable HISTORY: 69 years-old Male SEPSIS acute sepsis COMPARISON: Chest radiograph 06/01/2018 TECHNIQUE: Portable AP view of the chest FINDINGS: Cardiac silhouette is enlarged. Prior median sternotomy. No pneumothorax, pleural effusion, focal airspace consolidation or overt pulmonary edema. Minimal bibasilar atelectasis/scarring. Degenerative changes of the shoulders and spine. Surgical clips project over the left lung base. IMPRESSION: 1. Cardiomegaly without acute process. 2. Mild left basilar densities suggest atelectasis/scarring. ACT 112: Negative or not required by law. The above report was generated using voice recognition software. It may contain grammatical, syntax or spelling errors. Electronically signed by: Leo Mancuso M.D. 06/06/2019 2:[address] ANGIOGRAPHY OF THE CHEST, PULMONARY EMBOLUS PROTOCOL CLINICAL HISTORY: Shortness of breath. Chest pain. COMPARISON STUDY: Chest radiograph June 01, 2018 and June 06, 2019. TECHNIQUE: Following IV administration of 118 mL of Optiray-320, helical axial images of the chest were obtained utilizing the pulmonary embolus protocol. Maximal intensity projections and sagittal and coronal reformats were viewed on an independent 3D workstation. IV contrast was administered without complication. Automated exposure control was utilized for the study. A dose lowering technique was utilized adhering to the principles of ALARA. CT DOSE: 642.31 mGy.cm FINDINGS: Moderate enlargement of the transplanted heart is noted. Moderate dilatation of the right heart chambers is noted. The IVC and hepatic veins are dilated with reflux of contrast. No pneumothorax or pleural effusion. No central or lobar pulmonary emboli are identified. The segmental and subsegmental pulmonary arteries are suboptimally assessed due to respiratory motion. There are mild airspace opacities within the left lower lobes and right upper lobes with tree-in-bud ill-defined opacities. A 7 x 3.4 cm right lower lobe opacity with mild pleural thickening and swelling] represents round atelectasis. No geovanna picious osseous lesions are noted. Upper abdomen demonstrates slight nodularity of the liver surface. Calcified thoracic lymph nodes are present. IMPRESSION: 1. No central or lobar pulmonary emboli. Segmental and subsegmental pulmonary arteries suboptimally assessed due to respiratory motion. 2. Mild left lower lobe and right upper lobe airspace opacities which favor an infectious process such as bronchiolitis/bronchopneumonia. 3. Dilatation of the right heart chambers, IVC and hepatic veins with reflux of contrast. This may indicate right heart dysfunction. 4. 7 x 3.4 cm right lower lobe subpleural opacity consistent with round atelectasis. ACT 112: Negative or not required by law. Electronically signed by: Abrahan Almanzar M.D. 06/06/2019 6:11 PM ECG Data Attestation: I personally reviewed and interpreted this ECG as follows: Indication: + SOB/dyspnea Rate (beats per minute): 123 Rhythm: + sinus tachycardia ECG Intervals/blocks: + Right Bundle branch block ECG Findings: no PACs and no PVCs Comparison ECG Date: from (05/16/2014) Change: no significant change Blood Pressure Blood Pressure Findings: Elevated blood pressure Blood Pressure Disposition: Referred to patients primary care provider MDM Narrative The patient is a 69-year-old male who presented to the emergency department for difficulty breathing. The patient states that he had a fever and a cough. He has had symptoms for the last few days. He was seen at the outpatient clinic and had a flu swab which was negative. The patient was sent to the emergency department for further evaluation. The patient's history and physical exam could be consistent with an infectious process. His chest x-ray was not conclusive for pneumonia. He did not have an elevated white blood cell count but it should also be noted that the patient is a heart transplant patient who takes multiple medications which could mask infection. The patient had a CT of the chest. This appeared to be more consistent with infectious process of the lungs. I discussed the patient's laboratory and radiographic studies with him. The patient was treated with IV antibiotics in the emergency department. Given his past medical history and findings on CAT scan I discussed his case with the on-call [facility] hospitalist. They have agreed to evaluate the patient in the emergency department for further management and disposition. Impression & Plan Pneumonia, Chest pain, Shortness of breath Discharge Plan Visit Data *Final* Discharge Date/Time: 06/06/19 19:49 Chief Complaint: Cough Stated Complaint: COUGH, CHEST CONGESTION ED Provider: Gio Ramesh Discharge Problem: Pneumonia, Chest pain, Shortness of breath Patient Disposition: Admitted As Inpatient Discharge Instructions Interventions: ED Discharge Assessment Last Done: 06/06/19 19:49 Discharge Problem: Pneumonia Qualifiers: Pneumonia type: due to unspecified organism Laterality: bilateral Lung location: unspecified part of lung Qualified Code(s): J18.9 - Pneumonia, unspecified organism Chest pain Qualifiers: Chest pain type: unspecified Qualified Code(s): R07.9 - Chest pain, unspecified The scribe's documentation has been prepared under my direction and personally reviewed by me in its entirety. I confirm that the note above accurately reflects all work, treatment, procedures, and medical decision making performed by me.
[2019-06-06] MEDS ORDERED: DEXTROSE 50% 50 ML SYRINGE IV PRN (20:09)
[2019-06-06] MEDS ORDERED: GLUCOSE 10 TABS/TUBE PO PRN (20:09)
[2019-06-06] MEDS ORDERED: MAGNESIUM HYDROXIDE SUSP 30 ML UDC PO PRN (20:09)
[2019-06-06] MEDS ORDERED: BUMETANIDE 0.5 MG in SYRINGE 0 ML IV PRN (20:09)
[2019-06-06] MEDS ORDERED: GLUCOSE 40% GEL 15 GM TUBE PO PRN (20:09)
[2019-06-06] MEDS ORDERED: ONDANSETRON INJ 2 MG/ML 2 ML VIAL IV PRN (20:09)
[2019-06-06] MEDS ORDERED: ACETYLCYSTEINE 20% INHAL SOLN 30ML***DISPENSED BY RESP. INH ONE (20:09)
[2019-06-06] MEDS ORDERED: ALBUT/IPRATROP 3MG/0.5MG NEB 3 ML VIAL NEB STA (20:09)
[2019-06-06] MEDS ORDERED: CARBOHYDRATES FOR HYPOGLYCEMIA PO PRN (20:09)
[2019-06-06] MEDS ORDERED: GLUCAGON FOR INJ 1 MG VIAL SQ PRN (20:09)
[2019-06-06] MEDS ORDERED: NSS + 20MEQ KCL 20 MEQ/1,000 ML BAG IV SCH (21:00)
[2019-06-06] MEDS: INSULIN ASPART 100 UNITS/ML 3 ML PEN SC SCH (21:20)
[2019-06-06] MEDS: PRAVASTATIN SOD 20 MG TAB PO SCH (21:24)
[2019-06-06] MEDS: BUMETANIDE 1 MG TAB PO SCH (21:24)
[2019-06-06] MEDS: TACROLIMUS 0.5 MG CAP PO SCH (21:24)
[2019-06-06] MEDS: PANTOprazole 40 MG TAB PO SCH (21:25)
[2019-06-06] MEDS: HEPARIN SOD 5,000 UNIT/0.5 ML VIAL SQ SCH (21:33)
[2019-06-06] MEDS ORDERED: HEPARIN SOD 5,000 UNIT/0.5 ML VIAL SQ SCH (22:00)
[2019-06-06] MEDS: PIPERACILLIN/TAZOBACTAM 3.375 GM in DEXTROSE 5% 100 ML IV SCH (23:34)
[2019-06-06] MEDS ORDERED: COUGH DROP (SUGAR FREE) LOZ 24 LOZ/1 BOX BUCCAL PRN (23:40)
[2019-06-06] MEDS ORDERED: BENZONATATE 100 MG CAPSULE PO PRN (23:40)
[2019-06-07 02:17] LABS: Basophils # (auto) 0.02 K/uL (0-0.2); Basophils % (auto) 0.2 %; Eosinophils # (auto) 0.05 K/uL (0-0.5); Eosinophils % (auto) 0.6 %; Hematocrit (blood only) 46.8 % (42-52); Hemoglobin 15.6 g/dL (14.0-18.0); Immature Granulocytes # (auto) 0.02 K/uL (0.00-0.02); Immature Granulocytes % (auto) 0.2 %; Lymphocytes # (auto) 1.44 K/uL (1.2-3.4); Lymphocytes % (auto) 17.7 %; Mean Corpuscular Hemoglobin 29.1 pg (25-34); Mean Corpuscular Hgb Conc 33.3 g/dL (32-36); Mean Corpuscular Volume 87.2 fL (80-100); Mean Platelet Volume 9.5 fL (7.4-10.4); Monocytes # (auto) 1.42 K/uL (0.11-0.59); Monocytes % (auto) 17.4 %; Neutrophils # (auto) 5.19 K/uL (1.4-6.5); Neutrophils % (auto) 63.9 %; Platelet Count 169 K/uL (130-400); RDW Coefficient of Variation 14.6 % (11.5-14.5); RDW Standard Deviation 46.5 fL (36.4-46.3); Red Blood Count 5.37 M/uL (4.7-6.1); White Blood Count 8.14 K/uL (4.8-10.8)
[2019-06-07 02:38] LABS: BUN Creatinine Ratio 19.1 (10-20); Creatinine Clr Calc Pharmacy 51.1 ml/min; Est GFR (African American) 49.5; Est GFR (Non-African American) 42.7
[2019-06-07] MEDS: ACETAMINOPHEN 325 MG TAB PO PRN (04:30)
[2019-06-07 05:54] LABS: Estimated Average Glucose 177 mg/dl; Hemoglobin A1C 7.8 % (4.5-5.6)
[2019-06-07] MEDS: HEPARIN SOD 5,000 UNIT/0.5 ML VIAL SQ SCH ×3 (05:59→21:02)
[2019-06-07] MEDS: INSULIN ASPART 100 UNITS/ML 3 ML PEN SC SCH ×5 (08:33→21:01)
[2019-06-07] MEDS: INSULIN GLARGINE SOLOSTAR 100 UNITS/ML 3 ML PEN SQ SCH ×2 (08:34→08:39)
[2019-06-07] MEDS: PIPERACILLIN/TAZOBACTAM 3.375 GM in DEXTROSE 5% 100 ML IV SCH ×3 (08:40→23:22)
[2019-06-07] MEDS: BUMETANIDE 1 MG TAB PO SCH (08:44)
[2019-06-07] MEDS: LOSARTAN POTASSIUM 50 MG TAB PO SCH (08:45)
[2019-06-07] MEDS: MAGNESIUM OXIDE 400 MG TAB PO SCH (08:45)
[2019-06-07] MEDS: TAMSULOSIN HCL 0.4 MG CAP PO SCH (08:45)
[2019-06-07] MEDS: MULTIVITAMIN TAB PO SCH (08:46)
[2019-06-07] MEDS: predniSONE 5 MG TAB PO SCH (08:46)
[2019-06-07] MEDS: PANTOprazole 40 MG TAB PO SCH ×2 (08:47→20:53)
[2019-06-07] MEDS: BuPROPion SR 100 MG TABCR PO SCH (08:48)
[2019-06-07] MEDS: CHOLECALCIFEROL 1,000 UNITS 25 MCG TAB PO SCH (08:48)
[2019-06-07] MEDS: TACROLIMUS 0.5 MG CAP PO SCH ×2 (09:39→20:54)
[2019-06-07] MEDS ORDERED: VANCOMYCIN CONSULT ACTIVE PRN (10:09)
[2019-06-07] MEDS ORDERED: VANCOMYCIN HCL 1,000 MG in SODIUM CHLORIDE 0.9% 250 ML IV SCH (10:15)
[2019-06-07] MEDS ORDERED: VANCOMYCIN HCL 2,500 MG in SODIUM CHLORIDE 0.9% 500 ML IV ONE (10:30)
[2019-06-07] MEDS: SODIUM CHLORIDE 0.9% 1000ML 1,000 ML IV SCH ×2 (10:50→20:25)
[2019-06-07] MEDS: DOXYCYCLINE HYCLATE 100 MG in DEXTROSE 5% 100 ML IV SCH ×2 (13:47→21:01)
--- NOTE | 2019-06-07 14:17 | Pulmonary Consultation ---
Date of Consultation June 07, 2019 Assessment & Plan (1) Multilobar lung infiltrate: -- Multilobar pneumonia In a patient who is immunosuppressed Follow-up septic work-up, ESR, CRP, procalcitonin: 0.19, follow-up sputum culture, mycoplasma IgM and urine Legionella antigen We will continue with broad-spectrum antibiotics with atypical coverage. Would like the patient to be on azithromycin or levofloxacin but given that patient has QTC of 598, agree with doxycycline Continue with O2 supplementation to keep oxygen saturation around 94% - 95% On physical exam there is rhonchi we will add Mucomyst and guaifenesin to bring up the phlegm. --Right lower lobe unusual consolidation versus mass Given the history of heart transplant and history of lung injury during the procedure requiring another surgery, there is high likelihood that this is most likely scarring from chest tube insertion or injury during the surgery. Unfortunately there are no CAT scan of the abdomen pelvis or CAT scan of the chest since 2006 in my system. We will try to get more info from [facility] to see if they have any CAT scan done to compare. The right lower lobe subpleural opacity does look like rounded atelectasis. Patient does not have any exposure to asbestos. This could be a benign entity but given the patient is immunosuppressed. Cryptogenic organizing pneumonia, other fungal infection are a distant possibility. Patient has no eosinophilia and has no history of asthma. If there is no clinical improvement in the clinical status of the patient or if there is worsening in the infiltrates will consider doing bronchoscopy. Irrespective the right lower lobe lesion needs to be followed up with a CAT scan in 3 months without contrast. Please note the above document was generated using voice recognition software. It may contain grammatical, syntax or spelling errors. (2) History of heart transplant: History of Present Illness Attending Physician: Charla Mac MD History of Present Illness 69-year-old male with past medical history of heart transplant in 2007 at [facility] on immunosuppression since then which includes tacrolimus and prednisone, hypertension, depression was admitted to the hospital with complaints of shortness of breath and cough which is been going on since 5 to 7 days associated with purulent phlegm. It used to be clear but now he is bringing up greenish phlegm. Denies any chest pain associated with it. Denies any hemoptysis. Positive subjective fever and chills. No runny nose or tearing from the eyes prior to this episode. Patient did complain of diarrhea multiple bouts whenever this started. Denies any dysuria, no hematuria, no hematochezia. No blurry vision, no headache, no nausea or vomiting. Patient did not take any antibiotics prior to coming to the hospital. No weight loss, no night sweats. Patient denies any travel history. Is up-to-date with his vaccinations. Patient did say that he had some complication process heart transplant to 1 of his lungs for which they had to operate on him again. Patient unable to say which side was it and if there were any chest tube involved in it. Social history: Patient is a non-smoker, no illicit drug use, social alcohol. Retired. Has a cat at home and not allergic to it. No poultry or birds at home. Denies any asbestos exposure history Allergies Allergy/AdvReac Type Severity Reaction Status Date / Time shellfish derived Allergy Severe HIVES Verified 06/06/19 16:41 naproxen Allergy Unknown BROKE OUT Verified 06/06/19 16:41 IN A SWEAT oxycodone AdvReac Intermediate HALLUCINATI Verified 06/06/19 16:41 ON Home Medications Home Medications Medication Instructions Recorded Confirmed Type cholecalciferol (vitamin D3) 50 2,000 unit PO DAILY tab 10/17/18 06/06/19 History mcg (2,000 unit) tablet losartan 100 mg tablet 100 mg PO DAILY tab 10/17/18 06/06/19 History magnesium oxide 400 mg (241.3 mg 400 mg PO DAILY tab 10/17/18 06/06/19 History magnesium) tablet pravastatin 20 mg tablet 20 mg PO HS tab 10/17/18 06/06/19 History melatonin 10 mg capsule 10 mg PO HS PRN 11/07/18 06/06/19 History multivitamin 1 tab PO DAILY 11/07/18 06/06/19 History omeprazole 20 mg capsule,delayed 20 mg PO BID cap 11/07/18 06/06/19 History release tacrolimus 0.5 mg capsule 0.5 mg PO .COMPLEX cap 11/07/18 06/06/19 History insulin glargine 100 unit/mL (3 5 - 10 units SUBCUT DAILY #90 ml 11/28/18 06/06/19 Rx mL) subcutaneous pen blood sugar diagnostic #400 ea 04/11/19 05/10/19 Rx bupropion HCl 100 mg tablet,12 hr 100 mg PO DAILY #90 ea 05/10/19 06/06/19 Rx sustained-release semaglutide 0.25 mg SQ WEEKLY 90 Days #6 ml 05/10/19 06/06/19 Rx tamsulosin 0.4 mg capsule 0.4 mg PO DAILY 05/10/19 06/06/19 History bumetanide 1 mg PO BID 06/06/19 06/06/19 History prednisone 5 mg PO DAILY 06/06/19 06/06/19 History tadalafil [Cialis] 5 mg PO DAILY PRN 06/06/19 06/06/19 History Patient History Medical History Depression (Acute) Diabetes mellitus (Acute) Hearing difficulty (Acute) History of subarachnoid hemorrhage (Acute) Hypertension (Acute) Insomnia (Acute) Male erectile disorder of organic origin (Acute) Need for hepatitis C screening test (Acute) Vitamin D insufficiency (Acute) Surgical History History of heart transplant (Acute) Family History Father Heart disease Denies family history of Colon cancer Ovarian cancer Prostate cancer Myocardial infarction Breast cancer Social History Preferred Language: Indonesian Communication Ability: Effective Visual Impairment: No Limitations Hearing Ability: Normal 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[employer] Winder Required: No Beliefs That Will Affect Care: None marital status: Current Living Situation: Spouse current occupational status: retired Feels Safe at Home: Yes Smoking Status: Former smoker Tobacco Type: cigarettes and smokeless tobacco ; Age Quit Using Tobacco: 28 ; packs per day: 0.5 ; Cigarettes Per Day: 3-4 ; Hx Alcohol Use: Yes Alcohol type: wine and hard liquor Alcohol Intake Frequency: Daily Alcohol Intake Frequency Comment: 2-3 daily Hx Substance Use: No Childhood Exposure to Second-Hand Smoke: No Dental Care, Regularly: Yes Physical Activity Frequency: 3-4 Times per Week Seatbelt Use: always Sunscreen Use: Yes Review of Systems Review of Systems: All systems reviewed & are unremarkable except as noted in HPI & below Physical Exam Physical Exam: Constitutional: No acute distress HEENT: EOMI, PERRLA, moist mucous membrane, arcus senilis bilaterally Respiratory system: Positive bilateral lower lobe crackles, positive rhonchi, no wheeze CVS: S1-S2 positive, no murmurs or gallops, tachycardia Abdomen: Soft, nontender, nondistended, positive bowel sounds x4 Extremities: +2 pulses bilaterally radialis/ dorsalis pedis, no cyanosis, +1 edema bilateral lower extremity Neuro: Awake alert oriented x3 Psych: Normal mood and affect G/U: No [place] Skin: no rashes, warm and dry Lymphatic: no cervical or axillary lymphadenopathy Results & Data ([facility]) Vital Signs (Past 12 Hours) Vital Signs Temp Pulse Pulse Resp BP BP Pulse Ox 06/07/19 11:20 36.6 C 110 H 18 127/83 90 06/07/19 08:00 110 H 06/07/19 07:27 36.9 C 111 H 18 148/97 H 91 06/07/19 05:30 37.6 C H 06/07/19 04:14 38.7 C H 115 H 18 146/95 H 91 06/07/19 01:52 06/07/19 01:52 CTA chest 06/06/2019 personally reviewed. There is no mediastinal lymphadenopathy. There is right lower lobe 7 x 3.4 cm subpleural opacity which seems to have comet sign usually seen in rounded atelectasis. There is some tree-in-bud opacities appreciated in the bilateral lobes. PG Care Time/CCT Total # of Minutes Spent Total Time Spent with Patient: Total time spent is greater than 50% in coordination of care (as documented) at patient's floor/unit and/or counseling patient: [place] [address] Initial Inpt Care Lvl 3 Patient Type New Diagnoses Multilobar lung infiltrate R91.8 History of heart transplant Z94.1
[2019-06-07] MEDS ORDERED: ACETYLCYSTEINE 20% INHAL SOLN 4ML ***DISPENSED BY RESP. INH SCH (15:00)
[2019-06-07 15:32] LABS: Calcium 8.4 mg/dl (8.5-10.1); Creatinine Clr Calc Pharmacy 55.5 ml/min; Est GFR (African American) 55.3; Est GFR (Non-African American) 47.7; Potassium 3.8 mmol/L (3.5-5.1)
--- NOTE | 2019-06-07 15:56 | Pharmacy Report ---
Pharmacy Abx Dose Short Note - Date of Service June 07, 2019 - Assessment & Plan Assessment 69 year old M receiving zosyn/vancomycin/zosyn for treatment of pneumonia, history of heart transplant, uncertain renal baseline, SCR currently elevated at 1.6. Normal white count, Tmax 38.7, blood cultures pending, MRSA nasal ordered/uncollected. Plan Vancomycin * Loading dose of 2500 mg (~25 mg/kg) * Maintenance dose: 1500 mg (15 mg/kg) q18H * Population PK: CrCl 51.1, Ke 0.0468, T1/2 14.7 * Goal trough level 15-20 mcg/mL * Trough level currently not ordered, expect renal function to improve, will reassess in AM. Pharmacy will continue to follow and will adjust dose/frequency as necessary. Thank you.
[2019-06-07] MEDS: ALBUT/IPRATROP 3MG/0.5MG NEB 3 ML VIAL NEB PRN (16:38)
--- NOTE | 2019-06-07 19:48 | Hospitalist Progress Note ---
Date of Service June 07, 2019 Assessment & Plan (1) Sepsis: Presented with tachycardia, fever, and tachypnea. Found to have multi lobar infiltrate on chest CT consistent with pneumonia. We will broaden coverage given his immunosuppressed state-continue Zosyn and add on doxycycline and vancomycin-azithromycin or levofloxacin would be preferred but he has a prolonged QT -Start normal saline at 100 mL's per hour for persistent tachycardia and acute kidney injury as below Not severe sepsis, blood pressures acceptable and does not need stress dosed steroids at this time Lactate normal at 1.2 Procalcitonin only 0.19, ESR and CRP are somewhat elevated Blood cultures drawn and are pending Sputum culture pending -Continue Tylenol as needed for fever Present on Admission?: Yes (2) Pneumonia: With sepsis as above CT of the chest with 2 lobar infiltrate in the right upper lobe, left lower lobe, with round atelectasis and possible scarring from previous lung surgery in the right lower lobe, negative for PE Is immunosuppressed given history of cardiac transplant-on tacrolimus and prednisone -Broaden antibiotic coverage as above with IV vancomycin, Zosyn, and doxycycline for atypical coverage -Pulmonology consultation appreciated-added Mucomyst, Mucinex, benzonatate as needed for cough -Follow sputum cultures -Follow-up mycoplasma IgM and urine Legionella antigen -Continue with O2 supplementation to keep oxygen saturation around 94% - 95% Pulmonology compared his old CT from [facility] to the CT from here and it showed a similar right lower lobe unusual finding and is most likely benign or a surgical scar from his previous lung injury Pulmonology also feels that this finding could represent cryptogenic organizing pneumonia, other fungal infection are a distant possibility. Patient has no eosinophilia and has no history of asthma. If there is no clinical improvement in the clinical status of the patient or if there is worsening in the infiltrates will consider doing bronchoscopy as per pulmonology. -Right lower lobe lesion needs to be followed up with a CAT scan in 3 months without contrast. (3) Tachycardia: With persistent sinus tachycardia today. ECG again with sinus tachycardia and PACs. Suspect this is physiologic response to sepsis and pneumonia but will follow cautiously in the setting of cardiac transplant. Giving IV fluids but will lower the rate in the evening to 70 mL's per hour and watch for volume overload -Follow on telemetry -Will not give beta-siva at this time-of note, he is not on a beta-siva at home (4) Tachypnea: Secondary to pneumonia-now much improved with treatment of pneumonia (5) ARF (acute renal failure): Creatinine 1.4 on admission and jake to 1.6 today He did receive IV Bumex and p.o. Bumex and losartan this morning-these have now been held -Giving gentle IV fluids Baseline creatinine is 1.33 on labs that are scanned in from 10/2018 (6) Diabetes mellitus: On Lantus and Ozempic at home -Holding home Ozempic and giving Lantus 10 units daily here along with sliding scale insulin Hemoglobin A1c is 7.8%-fairly well controlled (7) History of heart transplant: In 2007, at [facility]. His hotel casino floorperson is Dr. Arian Reyes I called to the cardiac transplant service today and left a voicemail for the on-call physician-awaiting phone call back -Continue prednisone, tacrolimus -Check tacrolimus level (8) Depression: continue home bupropion (9) Hypertension: Blood pressures acceptable -Hold home losartan and Bumex for GENNY as above -Follow blood pressures clinically Could give IV hydralazine if needed (10) CKD (chronic kidney disease) stage 3, GFR 30-59 ml/min: Baseline creatinine around 1.33 on outpatient labs scanned in from 10/2017 -Avoid nephrotoxins -Renally dose medications when appropriate -Follow BMP (11) History of subarachnoid hemorrhage: In the setting of a fall with head trauma several years ago -No acute issues (12) GERD (gastroesophageal reflux disease): No acute issues -Continue pantoprazole 40 mg twice daily (13) CHF (congestive heart failure): Has a history of severe CHF which was treated with cardiac transplant He is followed closely by the cardiac transplant team at [facility] and has been very stable, no recent weight gain or swelling -Holding Bumex here and giving gentle IV fluids given sepsis -Holding losartan as well -Unclear on baseline echo, CT does show some possible right-sided failure -Awaiting return call from cardiac transplant team for more information -Overall appears normal -He is not in acute failure now, BNP only minimally elevated at this time -Follow I's and O's, daily weights (14) DVT prophylaxis: Heparin for DVT proph Admission and Anticipated Discharge Date Admission Date: June 06, 2019 Subjective Patient reports feeling much improved since yesterday. He is now coughing up thick green sputum. Denies chest pain or shortness of breath. Denies nausea or abdominal pains. No headache or lightheadedness. Telemetry with sinus tachycardia and PACs with rates in the low 100s to 110s I called his cardiac transplant service at [facility] and left a message but have not heard back by the end of the day. I also discussed his case with the continuous mining machine operator Patient reports that he used to have stress tests annually and has frequent echocardiograms with once yearly blood work with his cardiac transplant team and everything has been stable. He reports he no longer has to have stress tests anymore. Review of Systems Review of Systems: All systems reviewed & are unremarkable except as noted in HPI & below Physical Exam Constitutional: WD/WN, vitals as above Eyes: + anicteric sclerae ENMT: external ear and nose normal, oropharynx normal Neck: trachea midline, no thyromegaly Respiratory: normal respiratory effort and + cough; no labored breathing Auscultation: + crackles (At the right base and left base) and + rhonchi (At the left base and left upper lung field); no wheezes Cardiovascular: Rate/Rhythm: regular rhythm and + tachycardic Heart Sounds: no murmur Vessels: no JVD Extremities: no edema Gastrointestinal (Abdomen): normal bowel sounds, soft, nontender, no hepatosplenomegaly Musculoskeletal: Extremities: extremities normal to inspection; no cyanosis and no clubbing Skin: no rashes, warm and dry Neurologic: moves all extremities and awake; no focal motor deficits Psychiatric: A+Ox3, euthymic affect Lymphatic: no lymphedema Results & Data ([facility]) Vital Signs (Past 12 Hours) Vital Signs Temp Pulse Pulse Resp BP Pulse Ox 06/07/19 18:52 37.0 C 115 H 20 139/79 94 06/07/19 18:21 115 H 06/07/19 16:48 37.4 C 113 H 21 136/93 91 06/07/19 16:42 111 H 16 92 06/07/19 11:20 36.6 C 110 H 18 127/83 90 06/07/19 08:00 110 H Laboratory Results 06/07/19 06/07/19 06/07/19 Range/Units 16:28 15:01 15:01 WBC (4.8-10.8) K/uL RBC (4.7-6.1) M/uL Hgb (14.0-18.0) g/dL Hct (42-52) % MCV (80-100) fL MCH (25-34) pg MCHC (32-36) g/dL RDW Std Deviation (36.4-46.3) fL RDW Coeff of Miranda (11.5-14.5) % Plt Count (130-400) K/uL MPV (7.4-10.4) fL Immature Gran % (Auto) % Neut % (Auto) % Lymph % (Auto) % Bollinger % (Auto) % Eos % (Auto) % Baso % (Auto) % Immature Gran # (Auto) (0.00-0.02) K/uL Neut # (Auto) (1.4-6.5) K/uL Lymph # (Auto) (1.2-3.4) K/uL Bollinger # (Auto) (0.11-0.59) K/uL Eos # (Auto) (0-0.5) K/uL Baso # (Auto) (0-0.2) K/uL ESR 45 H (0-14) mm/hr Sodium (136-145) mmol/L Potassium (3.5-5.1) mmol/L Chloride (98-107) mmol/L Carbon Dioxide (21-32) mmol/L Anion Gap (3-11) BUN (7-18) mg/dl Creatinine (0.6-1.4) mg/dl Est Cr Clr Drug Dosing ml/min Est GFR ( Amer) Est GFR (Non-Af Amer) BUN/Creatinine Ratio (10-20) Glucose (70-99) mg/dl POC Glucose 137 H (70-99) mg/dl Estimat Average Glucose mg/dl Hemoglobin A1c (4.5-5.6) % Calcium (8.5-10.1) mg/dl Troponin I (0-0.045) ng/ml C-Reactive Protein (0-0.29) mg/dl Nasal Screen MRSA (PCR) (Negative) Tacrolimus Hepatitis C Ab Screen (Neg) Mycoplasma pneumon IgM Pending 06/07/19 06/07/19 06/07/19 Range/Units 14:53 14:53 13:55 WBC (4.8-10.8) K/uL RBC (4.7-6.1) M/uL Hgb (14.0-18.0) g/dL Hct (42-52) % MCV (80-100) fL MCH (25-34) pg MCHC (32-36) g/dL RDW Std Deviation (36.4-46.3) fL RDW Coeff of Miranda (11.5-14.5) % Plt Count (130-400) K/uL MPV (7.4-10.4) fL Immature Gran % (Auto) % Neut % (Auto) % Lymph % (Auto) % Bollinger % (Auto) % Eos % (Auto) % Baso % (Auto) % Immature Gran # (Auto) (0.00-0.02) K/uL Neut # (Auto) (1.4-6.5) K/uL Lymph # (Auto) (1.2-3.4) K/uL Bollinger # (Auto) (0.11-0.59) K/uL Eos # (Auto) (0-0.5) K/uL Baso # (Auto) (0-0.2) K/uL ESR (0-14) mm/hr Sodium 137 (136-145) mmol/L Potassium 3.8 (3.5-5.1) mmol/L Chloride 105 (98-107) mmol/L Carbon Dioxide 25 (21-32) mmol/L Anion Gap 7.0 (3-11) BUN 28 H (7-18) mg/dl Creatinine 1.46 H (0.6-1.4) mg/dl Est Cr Clr Drug Dosing 55.5 ml/min Est GFR ( Amer) 55.3 Est GFR (Non-Af Amer) 47.7 BUN/Creatinine Ratio 19.0 (10-20) Glucose 147 H (70-99) mg/dl POC Glucose (70-99) mg/dl Estimat Average Glucose mg/dl Hemoglobin A1c (4.5-5.6) % Calcium 8.4 L (8.5-10.1) mg/dl Troponin I (0-0.045) ng/ml C-Reactive Protein 10.00 H (0-0.29) mg/dl Nasal Screen MRSA (PCR) Negative (Negative) Tacrolimus Pending Hepatitis C Ab Screen (Neg) Mycoplasma pneumon IgM 06/07/19 06/07/19 06/07/19 Range/Units 12:19 07:51 01:52 WBC (4.8-10.8) K/uL RBC (4.7-6.1) M/uL Hgb (14.0-18.0) g/dL Hct (42-52) % MCV (80-100) fL MCH (25-34) pg MCHC (32-36) g/dL RDW Std Deviation (36.4-46.3) fL RDW Coeff of Miranda (11.5-14.5) % Plt Count (130-400) K/uL MPV (7.4-10.4) fL Immature Gran % (Auto) % Neut % (Auto) % Lymph % (Auto) % Bollinger % (Auto) % Eos % (Auto) % Baso % (Auto) % Immature Gran # (Auto) (0.00-0.02) K/uL Neut # (Auto) (1.4-6.5) K/uL Lymph # (Auto) (1.2-3.4) K/uL Bollinger # (Auto) (0.11-0.59) K/uL Eos # (Auto) (0-0.5) K/uL Baso # (Auto) (0-0.2) K/uL ESR (0-14) mm/hr Sodium (136-145) mmol/L Potassium (3.5-5.1) mmol/L Chloride (98-107) mmol/L Carbon Dioxide (21-32) mmol/L Anion Gap (3-11) BUN (7-18) mg/dl Creatinine (0.6-1.4) mg/dl Est Cr Clr Drug Dosing ml/min Est GFR ( Amer) Est GFR (Non-Af Amer) BUN/Creatinine Ratio (10-20) Glucose (70-99) mg/dl POC Glucose 129 H 82 (70-99) mg/dl Estimat Average Glucose 177 mg/dl Hemoglobin A1c 7.8 H (4.5-5.6) % Calcium (8.5-10.1) mg/dl Troponin I (0-0.045) ng/ml C-Reactive Protein (0-0.29) mg/dl Nasal Screen MRSA (PCR) (Negative) Tacrolimus Hepatitis C Ab Screen (Neg) Mycoplasma pneumon IgM 06/07/19 06/07/19 06/07/19 Range/Units 01:52 01:52 01:52 WBC 8.14 (4.8-10.8) K/uL RBC 5.37 (4.7-6.1) M/uL Hgb 15.6 (14.0-18.0) g/dL Hct 46.8 (42-52) % MCV 87.2 (80-100) fL MCH 29.1 (25-34) pg MCHC 33.3 (32-36) g/dL RDW Std Deviation 46.5 H (36.4-46.3) fL RDW Coeff of Miranda 14.6 H (11.5-14.5) % Plt Count 169 (130-400) K/uL MPV 9.5 (7.4-10.4) fL Immature Gran % (Auto) 0.2 % Neut % (Auto) 63.9 % Lymph % (Auto) 17.7 % Bollinger % (Auto) 17.4 % Eos % (Auto) 0.6 % Baso % (Auto) 0.2 % Immature Gran # (Auto) 0.02 (0.00-0.02) K/uL Neut # (Auto) 5.19 (1.4-6.5) K/uL Lymph # (Auto) 1.44 (1.2-3.4) K/uL Bollinger # (Auto) 1.42 H (0.11-0.59) K/uL Eos # (Auto) 0.05 (0-0.5) K/uL Baso # (Auto) 0.02 (0-0.2) K/uL ESR (0-14) mm/hr Sodium 137 (136-145) mmol/L Potassium 4.0 (3.5-5.1) mmol/L Chloride 103 (98-107) mmol/L Carbon Dioxide 25 (21-32) mmol/L Anion Gap 9.0 (3-11) BUN 31 H (7-18) mg/dl Creatinine 1.60 H (0.6-1.4) mg/dl Est Cr Clr Drug Dosing 51.1 ml/min Est GFR ( Amer) 49.5 Est GFR (Non-Af Amer) 42.7 BUN/Creatinine Ratio 19.1 (10-20) Glucose 104 H (70-99) mg/dl POC Glucose (70-99) mg/dl Estimat Average Glucose mg/dl Hemoglobin A1c (4.5-5.6) % Calcium 9.0 (8.5-10.1) mg/dl Troponin I 0.032 (0-0.045) ng/ml C-Reactive Protein (0-0.29) mg/dl Nasal Screen MRSA (PCR) (Negative) Tacrolimus Hepatitis C Ab Screen (Neg) Mycoplasma pneumon IgM 06/07/19 06/06/19 06/06/19 Range/Units 01:52 20:17 19:57 WBC (4.8-10.8) K/uL RBC (4.7-6.1) M/uL Hgb (14.0-18.0) g/dL Hct (42-52) % MCV (80-100) fL MCH (25-34) pg MCHC (32-36) g/dL RDW Std Deviation (36.4-46.3) fL RDW Coeff of Miranda (11.5-14.5) % Plt Count (130-400) K/uL MPV (7.4-10.4) fL Immature Gran % (Auto) % Neut % (Auto) % Lymph % (Auto) % Bollinger % (Auto) % Eos % (Auto) % Baso % (Auto) % Immature Gran # (Auto) (0.00-0.02) K/uL Neut # (Auto) (1.4-6.5) K/uL Lymph # (Auto) (1.2-3.4) K/uL Bollinger # (Auto) (0.11-0.59) K/uL Eos # (Auto) (0-0.5) K/uL Baso # (Auto) (0-0.2) K/uL ESR (0-14) mm/hr Sodium (136-145) mmol/L Potassium (3.5-5.1) mmol/L Chloride (98-107) mmol/L Carbon Dioxide (21-32) mmol/L Anion Gap (3-11) BUN (7-18) mg/dl Creatinine (0.6-1.4) mg/dl Est Cr Clr Drug Dosing ml/min Est GFR ( Amer) Est GFR (Non-Af Amer) BUN/Creatinine Ratio (10-20) Glucose (70-99) mg/dl POC Glucose 108 H (70-99) mg/dl Estimat Average Glucose mg/dl Hemoglobin A1c (4.5-5.6) % Calcium (8.5-10.1) mg/dl Troponin I 0.025 (0-0.045) ng/ml C-Reactive Protein (0-0.29) mg/dl Nasal Screen MRSA (PCR) (Negative) Tacrolimus Hepatitis C Ab Screen Neg (Neg) Mycoplasma pneumon IgM PG Care Time/CCT Total # of Minutes Spent Total Time Spent with Patient: Total time spent is greater than 50% in coordination of care (as documented) at patient's floor/unit and/or counseling patient: Coding Level of Care Code 57423 Subseq Hosp Care Lvl 3 Diagnoses Sepsis A41.9; R65.20; N17.9 Sepsis type: sepsis due to unspecified organism Sepsis acute organ dysfunction status: with acute organ dysfunction Severe sepsis acute organ dysfunction type: acute renal failure Acute renal failure type: unspecified Severe sepsis shock status: without septic shock Pneumonia J18.9 Laterality: bilateral Lung location: unspecified part of lung Pneumonia type: due to unspecified organism Tachycardia R00.0 Tachypnea R06.82 ARF (acute renal failure) N17.9 Diabetes mellitus E11.9; Z79.4 Diabetes mellitus complication status: without complication Diabetes mellitus longwall shearer operator insulin use: with longwall shearer operator use Diabetes mellitus type: type 2 History of heart transplant Z94.1 Depression F32.9 Depression Type: unspecified Hypertension I10 Hypertension type: essential hypertension CKD (chronic kidney disease) stage 3, GFR 30-59 ml/min N18.3 History of subarachnoid hemorrhage Z86.79 GERD (gastroesophageal reflux disease) K21.9 Esophagitis presence: without esophagitis CHF (congestive heart failure) I50.9 Heart failure chronicity: unspecified Heart failure type: unspecified DVT prophylaxis Z29.9 (1) Diabetes mellitus Diabetes mellitus complication status: without complication Diabetes mellitus fdc insulin use: with longwall shearer operator use Diabetes mellitus type: type 2 Qualified Code(s): E11.9 - Type 2 diabetes mellitus without complications; Z79.4 - senior care (current) use of insulin (2) CHF (congestive heart failure) Heart failure chronicity: unspecified Heart failure type: unspecified Qualified Code(s): I50.9 - Heart failure, unspecified (3) Depression Depression Type: unspecified Qualified Code(s): F32.9 - Major depressive disorder, single episode, unspecified (4) Sepsis Sepsis type: sepsis due to unspecified organism Sepsis acute organ dysfunction status: with acute organ dysfunction Severe sepsis acute organ dysfunction type: acute renal failure Acute renal failure type: unspecified Severe sepsis shock status: without septic shock Qualified Code(s): A41.9 - Sepsis, unspecified organism; R65.20 - Severe sepsis without septic shock; N17.9 - Acute kidney failure, unspecified (5) GERD (gastroesophageal reflux disease) Esophagitis presence: without esophagitis Qualified Code(s): K21.9 - Gastro- esophageal reflux disease without esophagitis (6) Hypertension Hypertension type: essential hypertension Qualified Code(s): I10 - Essential (primary) hypertension (7) Pneumonia Laterality: bilateral Lung location: unspecified part of lung Pneumonia type: due to unspecified organism Qualified Code(s): J18.9 - Pneumonia, unspecified organism
[2019-06-07] MEDS: PRAVASTATIN SOD 20 MG TAB PO SCH (20:53)
[2019-06-07] MEDS: guaiFENesin 600 MG TABCR PO SCH (20:53)
[2019-06-08] MEDS ORDERED: VANCOMYCIN HCL 1,500 MG in SODIUM CHLORIDE 0.9% 500 ML IV SCH (02:00)
[2019-06-08] MEDS: HEPARIN SOD 5,000 UNIT/0.5 ML VIAL SQ SCH ×3 (05:32→21:44)
[2019-06-08] MEDS: ALBUT/IPRATROP 3MG/0.5MG NEB 3 ML VIAL NEB PRN ×2 (06:53→19:28)
[2019-06-08] MEDS: ACETYLCYSTEINE 20% INHAL SOLN 4ML ***DISPENSED BY RESP. INH SCH ×2 (06:54→19:28)
[2019-06-08] MEDS: INSULIN ASPART 100 UNITS/ML 3 ML PEN SC SCH ×4 (07:47→21:43)
[2019-06-08] MEDS: PIPERACILLIN/TAZOBACTAM 3.375 GM in DEXTROSE 5% 100 ML IV SCH ×3 (07:47→23:45)
[2019-06-08] MEDS: INSULIN GLARGINE SOLOSTAR 100 UNITS/ML 3 ML PEN SQ SCH (07:57)
[2019-06-08] MEDS: MAGNESIUM OXIDE 400 MG TAB PO SCH (07:58)
[2019-06-08] MEDS: TAMSULOSIN HCL 0.4 MG CAP PO SCH (07:58)
[2019-06-08] MEDS: MULTIVITAMIN TAB PO SCH (07:59)
[2019-06-08] MEDS: predniSONE 5 MG TAB PO SCH (07:59)
[2019-06-08] MEDS: guaiFENesin 600 MG TABCR PO SCH ×2 (07:59→21:39)
[2019-06-08] MEDS: TACROLIMUS 0.5 MG CAP PO SCH ×2 (08:00→21:41)
[2019-06-08] MEDS: PANTOprazole 40 MG TAB PO SCH ×2 (08:00→21:40)
[2019-06-08] MEDS: CHOLECALCIFEROL 1,000 UNITS 25 MCG TAB PO SCH (08:00)
[2019-06-08] MEDS: BuPROPion SR 100 MG TABCR PO SCH (08:01)
[2019-06-08] MEDS: DOXYCYCLINE HYCLATE 100 MG in DEXTROSE 5% 100 ML IV SCH ×2 (09:10→19:42)
--- NOTE | 2019-06-08 09:20 | Pulmonology Progress Note ---
Date of Service June 08, 2019 Assessment & Plan (1) Multilobar lung infiltrate: -- Multilobar pneumonia In a patient who is immunosuppressed s/p Heart transplant 2007 Follow-up septic work-up, ESR: 45, CRP: 10, procalcitonin: 0.19, follow-up sputum culture, mycoplasma IgM and urine Legionella antigen We will continue with broad-spectrum antibiotics with atypical coverage. Would like the patient to be on azithromycin or levofloxacin but given that patient has QTC of 598, agree with doxycycline Continue with O2 supplementation to keep oxygen saturation around 92% On Mucomyst and guaifenesin --Right lower lobe opacity Given the history of heart transplant and history of lung injury during the procedure requiring another surgery, there is high likelihood that this is most likely scarring from chest tube insertion or injury during the surgery. CT chest without contrast from [address] abdomen pelvis from 2014 reviewed personally which was done at [place]. Patient had right lower lobe opacity present even at that time. This likely represents benign entity. Needs to be followed up with a CAT scan in 4-6 months without contrast. The right lower lobe opacity does not worry me anymore given that it was present even in 2009 and 2014. Patient was made aware about this finding and that it was present in 2009 and 2014 respectively. Recommend resuming his home dose diuretic and discontinuing IV fluids. Please note the above document was generated using voice recognition software. It may contain grammatical, syntax or spelling errors. (2) History of heart transplant: Subjective Patient seen and examined at bedside. No acute distress, no adverse events overnight. Patient still coughing bringing up greenish phlegm. States that the shortness of breath is improved still present on exertion. Denies any chest pain, no headache, no nausea, no vomiting. Good appetite. Review of Systems Review of Systems: All systems reviewed & are unremarkable except as noted in HPI & below Physical Exam Physical Exam: Constitutional: No acute distress HEENT: EOMI, PERRLA, moist mucous membrane, arcus senilis bilaterally Respiratory system: Positive bilateral lower lobe crackles, no rhonchi, no wheeze CVS: S1-S2 positive, no murmurs or gallops, tachycardia Abdomen: Soft, nontender, nondistended, positive bowel sounds x4 Extremities: +2 pulses bilaterally radialis/ dorsalis pedis, no cyanosis, +1 edema bilateral lower extremity Neuro: Awake alert oriented x3 Psych: Normal mood and affect G/U: No [place] At the time of examination patient was saturating 93% on 2 L nasal cannula with heart rate of 116 at rest. Skin: no rashes, warm and dry Lymphatic: no cervical or axillary lymphadenopathy Results & Data ([facility]) Vital Signs (Past 12 Hours) Vital Signs Temp Pulse Pulse Resp BP Pulse Ox 06/08/19 07:07 36.8 C 107 H 20 148/94 H 92 06/08/19 07:03 118 H 20 92 06/08/19 03:36 36.7 C 106 H 23 136/96 95 06/08/19 00:48 129 H 06/07/19 23:26 37.6 C H 111 H 22 144/98 H 94 06/07/19 01:52 06/07/19 14:53 PG Care Time/CCT Total # of Minutes Spent Total Time Spent with Patient: Total time spent is greater than 50% in coordination of care (as documented) at patient's floor/unit and/or counseling patient: Coding Level of Care Code 57122 Subseq Hosp Care Lvl 3 Diagnoses Multilobar lung infiltrate R91.8 History of heart transplant Z94.1
[2019-06-08 10:32] LABS: BUN Creatinine Ratio 18.8 (10-20); Calcium 8.3 mg/dl (8.5-10.1); Creatinine Clr Calc Pharmacy 63.7 ml/min; Est GFR (African American) 64.8; Est GFR (Non-African American) 55.9; Magnesium 1.8 mg/dl (1.8-2.4); Potassium 3.3 mmol/L (3.5-5.1)
--- NOTE | 2019-06-08 14:12 | Cardiology Consultation ---
Date of Consultation June 08, 2019 Assessment & Plan (1) Tachycardia: He has a persistent sinus tachycardia but I understand he has had this consistently with his heart transplant and this is well-known at [place]. I would continue to observe but I would not treat the tachycardia specifically. (2) RBBB (right bundle branch block): He has a right bundle branch pattern which has been present in the past. I would continue to watch him on telemetry but unless he develops heart block there is no need for further evaluation. (3) History of heart transplant: He seems to be doing well with his heart transplant, he is followed closely by Dr. Reyes at [facility]. I would not perform any further evaluation at this time. History of Present Illness Reason for Consultation: Tachycardia Attending Physician: Charla Mac MD History of Present Illness This is a 69-year-old male who has a history of heart transplant at [facility] in 2007, he is followed there by Dr. Reyes and does not see a local paralegal assistant. He has been doing well as far as his transplant goes and presents now with respiratory issues. He was noted to be tachycardic on presentation, however that evidently is typical for him following transplant. At the time my evaluation he was having some respiratory difficulty but was not having chest discomfort, orthopnea, PND or palpitations. He is wearing oxygen and has not been very active. Allergies Allergy/AdvReac Type Severity Reaction Status Date / Time shellfish derived Allergy Severe HIVES Verified 06/06/19 16:41 naproxen Allergy Unknown BROKE OUT Verified 06/06/19 16:41 IN A SWEAT oxycodone AdvReac Intermediate HALLUCINATI Verified 06/06/19 16:41 ON Home Medications Home Medications Medication Instructions Recorded Confirmed Type cholecalciferol (vitamin D3) 50 2,000 unit PO DAILY tab 10/17/18 06/06/19 History mcg (2,000 unit) tablet losartan 100 mg tablet 100 mg PO DAILY tab 10/17/18 06/06/19 History magnesium oxide 400 mg (241.3 mg 400 mg PO DAILY tab 10/17/18 06/06/19 History magnesium) tablet pravastatin 20 mg tablet 20 mg PO HS tab 10/17/18 06/06/19 History melatonin 10 mg capsule 10 mg PO HS PRN 11/07/18 06/06/19 History multivitamin 1 tab PO DAILY 11/07/18 06/06/19 History omeprazole 20 mg capsule,delayed 20 mg PO BID cap 11/07/18 06/06/19 History release tacrolimus 0.5 mg capsule 0.5 mg PO .COMPLEX cap 11/07/18 06/06/19 History insulin glargine 100 unit/mL (3 5 - 10 units SUBCUT DAILY #90 ml 11/28/18 06/06/19 Rx mL) subcutaneous pen blood sugar diagnostic #400 ea 04/11/19 05/10/19 Rx bupropion HCl 100 mg tablet,12 hr 100 mg PO DAILY #90 ea 05/10/19 06/06/19 Rx sustained-release semaglutide 0.25 mg SQ WEEKLY 90 Days #6 ml 05/10/19 06/06/19 Rx tamsulosin 0.4 mg capsule 0.4 mg PO DAILY 05/10/19 06/06/19 History bumetanide 1 mg PO BID 06/06/19 06/06/19 History prednisone 5 mg PO DAILY 06/06/19 06/06/19 History tadalafil [Cialis] 5 mg PO DAILY PRN 06/06/19 06/06/19 History terazosin 2 mg PO DAILY 06/08/19 06/08/19 History Patient History Medical History CKD (chronic kidney disease) stage 3, GFR 30-59 ml/min Depression (Acute) Diabetes mellitus (Acute) Hearing difficulty (Acute) History of subarachnoid hemorrhage (Acute) Hypertension (Acute) Insomnia (Acute) Male erectile disorder of organic origin (Acute) Need for hepatitis C screening test (Acute) Vitamin D insufficiency (Acute) Surgical History History of heart transplant (Acute) Family History Father Heart disease Denies family history of Colon cancer Ovarian cancer Prostate cancer Myocardial infarction Breast cancer Social History Preferred Language: Tajik Communication Ability: Effective Visual Impairment: No Limitations Hearing Ability: Normal Channeling Machine Runner Required: No Beliefs That Will Affect Care: None marital status: Current Living Situation: Spouse current occupational status: retired Feels Safe at Home: Yes Smoking Status: Former smoker Tobacco Type: cigarettes and smokeless tobacco ; Age Quit Using Tobacco: 28 ; packs per day: 0.5 ; Cigarettes Per Day: 3-4 ; Hx Alcohol Use: Yes Alcohol type: wine and hard liquor Alcohol Intake Frequency: Daily Alcohol Intake Frequency Comment: 2-3 daily Hx Substance Use: No Childhood Exposure to Second-Hand Smoke: No Dental Care, Regularly: Yes Physical Activity Frequency: 3-4 Times per Week Seatbelt Use: always Sunscreen Use: Yes Review of Systems Review of Systems: All systems reviewed & are unremarkable except as noted in HPI & below Physical Exam Physical Exam: Constitutional: Alert, cooperative and in no distress. HEENT: Unremarkable Neck: No jugular venous distention, carotid pulses are normal and equal bilaterally without bruits. Pulmonary: Rhonchi and expiratory wheezes on auscultation bilaterally. Cardiac: Regular rapid rhythm with no murmur, gallop or rub. Abdomen: Soft, nontender with normal bowel sounds. Extremities: No edema. Distal pulses intact. Neurologic: No focal findings. Gait is steady. Skin: No rash, ecchymoses or petechiae. Results & Data ([facility]) Vital Signs (Past 12 Hours) Vital Signs Temp Pulse Pulse Resp BP BP Pulse Ox 06/08/19 11:53 36.5 C 113 H 20 136/89 95 06/08/19 08:00 107 H 94 06/08/19 07:07 36.8 C 107 H 20 148/94 H 92 06/08/19 07:03 118 H 20 92 06/08/19 03:36 36.7 C 106 H 23 136/96 95 Laboratory Results Comprehensive Metabolic Panel 06/07/19 06/08/19 Range/Units 14:53 09:52 Sodium 137 137 (136-145) mmol/L Potassium 3.8 3.3 L (3.5-5.1) mmol/L Chloride 105 105 (98-107) mmol/L Carbon Dioxide 25 24 (21-32) mmol/L BUN 28 H 24 H (7-18) mg/dl Creatinine 1.46 H 1.28 (0.6-1.4) mg/dl Glucose 147 H 215 H (70-99) mg/dl Calcium 8.4 L 8.3 L (8.5-10.1) mg/dl Intake and Output 06/07/19 06/08/19 06/08/19 22:59 06:59 14:59 Intake Total 1279.834 / 4174.001 1055 / 4174.001 1645 / 1645 Output Total 500 / 900 250 / 900 Balance 779.834 / 3274.001 805 / 3274.001 1645 / 1645 Intake: IV 1179.834 / 3274.001 755 / 3274.001 1225 / 1225 Vibramycin 100 mg In D5 100 ml 110 / 220 110 / 220 110 / 110 @ 50 mls/hr IV Q12 MICK Rx#: [id number] Zosyn 3.375 gm In D5 100 ml @ 115 / 345 115 / 345 115 / 115 28.75 mls/hr IV Q8H MICK Rx#: [id number] Nss 1000ML 1,000 ml @ 70 mls/hr 954.834 / 272.365 7565 / 1000 IV .[id number] MICK Rx#:[id number] Vancomycin HCl 1,500 mg In Nss 530 / 530 500 ml @ 200 mls/hr IV Q18H MICK Rx#:[id number] Oral 100 / 900 300 / 900 420 / 420 Output: Urine 500 / 900 250 / 900 Other: Weight 103.3 kg Diagnostic Findings An electrocardiogram shows sinus tachycardia at 116 bpm with premature atrial beats, and inferior infarct pattern and a right bundle branch block pattern. This is similar to prior electrocardiograms. Telemetry: Sinus tachycardia, no significant arrhythmia PG Care Time/CCT Total # of Minutes Spent Total Time Spent with Patient: Total time spent is greater than 50% in coordination of care (as documented) at patient's floor/unit and/or counseling patient: Coding Level of Care Code 75831 Initial Inpt Care Lvl 2 Diagnoses Tachycardia R00.0 RBBB (right bundle branch block) I45.10 History of heart transplant Z94.1
[2019-06-08] MEDS ORDERED: MAGNESIUM SULFATE / D5W 1 GM/100 ML BAG IV ONE (14:15)
[2019-06-08] MEDS ORDERED: POTASSIUM CHLORIDE 20 MEQ TABCR PO ONE (14:15)
--- NOTE | 2019-06-08 16:36 | Electrocardiogram Report ---
Test Reason : Blood Pressure : / mmHG Vent. Rate : 116 BPM Atrial Rate : 116 BPM P-R Int : 152 ms QRS Dur : 164 ms QT Int : 354 ms P-R-T Axes : 104 -22 026 degrees QTc Int : 492 ms Sinus tachycardia with Premature atrial complexes Right bundle branch block Inferior infarct (cited on or before 05-AUG-2007) Abnormal ECG When compared with ECG of 06-JUN-2019 14:41, No significant change was found Confirmed by Alec Kaplan ([id number]) on 06/08/2019 4:35:46 PM Referred By: REFERRED SELF Confirmed By:Alec Kaplan
[2019-06-08] MEDS ORDERED: BUMETANIDE 1 MG TAB PO SCH (17:00)
--- NOTE | 2019-06-08 17:39 | Hospitalist Progress Note ---
Date of Service June 08, 2019 Assessment & Plan (1) Sepsis: Presented with tachycardia, fever, and tachypnea. Found to have multi lobar infiltrate on chest CT consistent with pneumonia. Improved. No fevers in last 24 hours, tachycardia improving but he is baseline tachycardic Not severe sepsis, blood pressures acceptable and does not need stress dosed steroids at this time Lactate normal at 1.2 Procalcitonin only 0.19, ESR and CRP are somewhat elevated Blood cultures drawn and are pending Sputum culture mod normal alexis -Continue broad abx coverage given his immunosuppressed state-continue Zosyn and doxycycline -can dc vancomycin now given neg MRSA swab -azithromycin or levofloxacin would be preferred but he has a prolonged QT -dc IVFs -Continue Tylenol as needed for fever (2) Pneumonia: With sepsis as above CT of the chest with 2 lobar infiltrate in the right upper lobe, left lower lobe, with round atelectasis and possible scarring from previous lung surgery in the right lower lobe, negative for PE Is immunosuppressed given history of cardiac transplant-on tacrolimus and prednisone Sputum mod normal alexis -continue abx as above with IV Zosyn, and doxycycline for atypical coverage -Pulmonology consultation appreciated-continue Mucomyst, Mucinex, benzonatate as needed for cough -Follow-up mycoplasma IgM and urine Legionella antigen -Continue with O2 supplementation to keep oxygen saturation around 94% - 95% Pulmonology compared his old CT from [place] to the CT from here and it showed a similar right lower lobe unusual finding and is most likely benign or a surgical scar from his previous lung injury Pulmonology also feels that this finding could represent cryptogenic organizing pneumonia, other fungal infection are a distant possibility. Patient has no eosinophilia and has no history of asthma. If there is no clinical improvement in the clinical status of the patient or if there is worsening in the infiltrates will consider doing bronchoscopy as per pulmonology. -Right lower lobe lesion needs to be followed up with a CAT scan in 4-6 months without contrast. (3) Tachycardia: With persistent sinus tachycardia which was in the 120s on admission, now low 100s to high 90s ECG with sinus tachycardia and PACs. Suspect this is physiologic response to sepsis and pneumonia His baseline HR is 90s-low 100s as per Cardiac Information Technology Program Manager as he was denervated (vagus nerve) during surgery -dc IV fluids -Follow on telemetry (4) Tachypnea: Secondary to pneumonia-now resolved with treatment of pneumonia (5) ARF (acute renal failure): Creatinine 1.4 on admission and jake to 1.6 after admission He did receive IV Bumex and p.o. Bumex and losartan on admission -Gave gentle IV fluids and now section repairer improved to 1.28 Baseline creatinine is 1.33 on labs that are scanned in from 10/2018 -dc IVFs -weight is up--> ok to restart home Bumex 1mg po qAM (home dose is 1-2mg daily) -continue to hold losartan but will restart in AM if section repairer stable -avoid nephrotoxins (6) Diabetes mellitus: On Lantus and Ozempic at home -Holding home Ozempic and giving Lantus 10 units daily here along with sliding scale insulin With some hyperglycemia here which is now improving Hemoglobin A1c is 7.8%-fairly well controlled (7) History of heart transplant: In 2007, at [place]. His cornice upholsterer is Dr. Arian Reyes I called the cardiac nurse coordinator-direct # is [phone]--> they are comfortable with him staying at [facility] as his condition is improving. Most recent ECHO at [facility] 06/2018 shows LVEF 60%, mild-mod LVH, mild dilated RV, septal motion abnormality, mod-severe TR, mild MR, TAPSE 1.8 -Continue prednisone, tacrolimus -Check tacrolimus level-pending (8) Depression: continue home bupropion (9) Hypertension: Blood pressures acceptable to elevated at times -Hold home losartan for GENNY as above but can restart in AM if section repairer stable -restart home Bumex in the AM -is also supposed to be on terazosin 2mg hs as per home list--> added on for tonight -Follow blood pressures Could give IV hydralazine if needed (10) CKD (chronic kidney disease) stage 3, GFR 30-59 ml/min: Baseline creatinine around 1.33 on outpatient labs scanned in from 10/2017 -Avoid nephrotoxins -Renally dose medications when appropriate -Follow BMP (11) History of subarachnoid hemorrhage: In the setting of a fall with head trauma several years ago -No acute issues (12) GERD (gastroesophageal reflux disease): No acute issues -Continue pantoprazole 40 mg twice daily (13) CHF (congestive heart failure): Has a history of severe CHF which was treated with cardiac transplant Now with Chronic preserved EF CHF He is followed closely by the cardiac transplant team at [place] and has been very stable, no recent weight gain or swelling -Held Bumex here and giving gentle IV fluids given sepsis as above--> now dc IVFs and restart bumex 1mg po qAM -Holding losartan as well -Most recent ECHO 06/2018 as above, preserved EF -He is not in acute failure now, BNP only minimally elevated at this time -Follow I's and O's, daily weights (14) Hypokalemia: K+ 3.3 today replace with KCL 40meq po x 1 Follow BMP in AM (15) DVT prophylaxis: Heparin for DVT proph Admission and Anticipated Discharge Date Admission Date: June 06, 2019 Anticipated date of discharge: 06/10/19 Subjective Pt feeling better today, less cough, not bringing up as much sputum. Does feel SOB with coughing episodes. Wearing O2 intermittently to keep POx>94%. Denies chest pain, no nausea. He has had 3-4 loose stools today. No abd pain. Tele remains with sinus tachycardia. I discussed his case with his Cardiac Information Technology Program Manager at [place] today. She advised that it was normal fo rhis heart rate to be in the 90s-100s due to surgical denervation (of vagus nerve). Most recent ECHO there was 06/2018 and showed LVEF 60%, mild RV dilation,mild-mod LVH, mod-severe TR, mild MR, and TAPSE of 1.8 Review of Systems Review of Systems: All systems reviewed & are unremarkable except as noted in HPI & below Physical Exam Constitutional: WD/WN, vitals as above Eyes: + anicteric sclerae Neck: trachea midline, no thyromegaly Respiratory: normal respiratory effort and + cough; no labored breathing Auscultation: + crackles (At the right base and left base but less than previous); no rhonchi and no wheezes Cardiovascular: Rate/Rhythm: regular rhythm and + tachycardic Heart Sounds: no murmur Vessels: no JVD Extremities: no edema Gastrointestinal (Abdomen): normal bowel sounds, soft, nontender, no hepatosplenomegaly Musculoskeletal: Extremities: extremities normal to inspection; no cyanosis and no clubbing Skin: no rashes, warm and dry Neurologic: moves all extremities and awake; no focal motor deficits Psychiatric: A+Ox3, euthymic affect Lymphatic: no lymphedema Results & Data ([facility]) Vital Signs (Past 12 Hours) Vital Signs Temp Pulse Pulse Resp BP BP Pulse Ox 06/08/19 15:31 103 H 06/08/19 15:15 93 06/08/19 13:37 36.5 C 113 H 20 136/89 95 06/08/19 11:53 36.5 C 113 H 20 136/89 95 06/08/19 08:00 107 H 94 06/08/19 07:07 36.8 C 107 H 20 148/94 H 92 06/08/19 07:03 118 H 20 92 Laboratory Results 06/08/19 06/08/19 06/08/19 Range/Units 20:58 18:25 16:38 Sodium (136-145) mmol/L Potassium (3.5-5.1) mmol/L Chloride (98-107) mmol/L Carbon Dioxide (21-32) mmol/L Anion Gap (3-11) BUN (7-18) mg/dl Creatinine (0.6-1.4) mg/dl Est Cr Clr Drug Dosing ml/min Est GFR ( Amer) Est GFR (Non-Af Amer) BUN/Creatinine Ratio (10-20) Glucose (70-99) mg/dl POC Glucose 135 H 150 H (70-99) mg/dl Calcium (8.5-10.1) mg/dl Magnesium (1.8-2.4) mg/dl Stl C. diff Tox B Gene Negative Cdiff Gene (Neg) Tacrolimus Urine Legionella Ag 06/08/19 06/08/19 06/08/19 Range/Units 12:15 09:52 07:41 Sodium 137 (136-145) mmol/L Potassium 3.3 L (3.5-5.1) mmol/L Chloride 105 (98-107) mmol/L Carbon Dioxide 24 (21-32) mmol/L Anion Gap 8.0 (3-11) BUN 24 H (7-18) mg/dl Creatinine 1.28 (0.6-1.4) mg/dl Est Cr Clr Drug Dosing 63.7 ml/min Est GFR ( Amer) 64.8 Est GFR (Non-Af Amer) 55.9 BUN/Creatinine Ratio 18.8 (10-20) Glucose 215 H (70-99) mg/dl POC Glucose 185 H 82 (70-99) mg/dl Calcium 8.3 L (8.5-10.1) mg/dl Magnesium 1.8 (1.8-2.4) mg/dl Stl C. diff Tox B Gene (Neg) Tacrolimus Urine Legionella Ag 06/08/19 06/07/19 Range/Units 03:39 14:53 Sodium (136-145) mmol/L Potassium (3.5-5.1) mmol/L Chloride (98-107) mmol/L Carbon Dioxide (21-32) mmol/L Anion Gap (3-11) BUN (7-18) mg/dl Creatinine (0.6-1.4) mg/dl Est Cr Clr Drug Dosing ml/min Est GFR ( Amer) Est GFR (Non-Af Amer) BUN/Creatinine Ratio (10-20) Glucose (70-99) mg/dl POC Glucose (70-99) mg/dl Calcium (8.5-10.1) mg/dl Magnesium (1.8-2.4) mg/dl Stl C. diff Tox B Gene (Neg) Tacrolimus Urine Legionella Ag Pending BCxs NGTD Sputum cx mod normal alexis PG Care Time/CCT Total # of Minutes Spent Total Time Spent with Patient: Total time spent is greater than 50% in coordination of care (as documented) at patient's floor/unit and/or counseling patient: Coding Level of Care Code 57487 Subseq Hosp Care Lvl 3 Diagnoses Sepsis A41.9; R65.20; N17.9 Acute renal failure type: unspecified Sepsis acute organ dysfunction status: with acute organ dysfunction Sepsis type: sepsis due to unspecified organism Severe sepsis acute organ dysfunction type: acute renal failure Severe sepsis shock status: without septic shock Pneumonia J18.9 Laterality: bilateral Lung location: unspecified part of lung Pneumonia type: due to unspecified organism Tachycardia R00.0 Tachypnea R06.82 ARF (acute renal failure) N17.9 Diabetes mellitus E11.9; Z79.4 Diabetes mellitus complication status: without complication Diabetes mellitus detective supervisor insulin use: with detective supervisor use Diabetes mellitus type: type 2 History of heart transplant Z94.1 Depression F32.9 Depression Type: unspecified Hypertension I10 Hypertension type: essential hypertension CKD (chronic kidney disease) stage 3, GFR 30-59 ml/min N18.3 History of subarachnoid hemorrhage Z86.79 GERD (gastroesophageal reflux disease) K21.9 Esophagitis presence: without esophagitis CHF (congestive heart failure) I50.9 Heart failure chronicity: unspecified Heart failure type: unspecified Hypokalemia E87.6 DVT prophylaxis Z29.9 (1) Diabetes mellitus Diabetes mellitus complication status: without complication Diabetes mellitus detective supervisor insulin use: with detective supervisor use Diabetes mellitus type: type 2 Qualified Code(s): E11.9 - Type 2 diabetes mellitus without complications; Z79.4 - jail (current) use of insulin (2) CHF (congestive heart failure) Heart failure chronicity: unspecified Heart failure type: unspecified Qualified Code(s): I50.9 - Heart failure, unspecified (3) Depression Depression Type: unspecified Qualified Code(s): F32.9 - Major depressive disorder, single episode, unspecified (4) Sepsis Acute renal failure type: unspecified Sepsis acute organ dysfunction status: with acute organ dysfunction Sepsis type: sepsis due to unspecified organism Severe sepsis acute organ dysfunction type: acute renal failure Severe sepsis shock status: without septic shock Qualified Code(s): A41.9 - Sepsis, unspecified organism; R65.20 - Severe sepsis without septic shock; N17.9 - Acute kidney failure, unspecified (5) GERD (gastroesophageal reflux disease) Esophagitis presence: without esophagitis Qualified Code(s): K21.9 - Gastro- esophageal reflux disease without esophagitis (6) Hypertension Hypertension type: essential hypertension Qualified Code(s): I10 - Essential (primary) hypertension (7) Pneumonia Laterality: bilateral Lung location: unspecified part of lung Pneumonia type: due to unspecified organism Qualified Code(s): J18.9 - Pneumonia, unspecified organism
[2019-06-08] MEDS ORDERED: OLANZAPINE 2.5 MG TAB PO SCH (21:00)
[2019-06-08] MEDS: PRAVASTATIN SOD 20 MG TAB PO SCH (21:39)
[2019-06-08] MEDS: TERAZOSIN HCL 1 MG CAP PO SCH (22:51)
[2019-06-08] MEDS ORDERED: LOPERAMIDE HCL 2 MG CAP PO PRN (23:51)
[2019-06-09] MEDS: HEPARIN SOD 5,000 UNIT/0.5 ML VIAL SQ SCH ×3 (06:38→21:56)
[2019-06-09] MEDS: ACETYLCYSTEINE 20% INHAL SOLN 4ML ***DISPENSED BY RESP. INH SCH ×2 (06:57→19:09)
[2019-06-09] MEDS: ALBUT/IPRATROP 3MG/0.5MG NEB 3 ML VIAL NEB PRN ×2 (06:57→19:09)
[2019-06-09] MEDS: PIPERACILLIN/TAZOBACTAM 3.375 GM in DEXTROSE 5% 100 ML IV SCH ×2 (07:51→16:01)
[2019-06-09] MEDS: predniSONE 5 MG TAB PO SCH (07:52)
[2019-06-09] MEDS: guaiFENesin 600 MG TABCR PO SCH ×2 (07:52→21:57)
[2019-06-09] MEDS: BUMETANIDE 1 MG TAB PO SCH (07:52)
[2019-06-09] MEDS: MULTIVITAMIN TAB PO SCH (07:52)
[2019-06-09] MEDS: TACROLIMUS 0.5 MG CAP PO SCH ×2 (07:53→21:56)
[2019-06-09] MEDS: BuPROPion SR 100 MG TABCR PO SCH (07:53)
[2019-06-09] MEDS: CHOLECALCIFEROL 1,000 UNITS 25 MCG TAB PO SCH (07:53)
[2019-06-09] MEDS: PANTOprazole 40 MG TAB PO SCH ×2 (07:54→21:56)
[2019-06-09] MEDS: INSULIN ASPART 100 UNITS/ML 3 ML PEN SC SCH ×4 (07:54→21:57)
[2019-06-09] MEDS: INSULIN GLARGINE SOLOSTAR 100 UNITS/ML 3 ML PEN SQ SCH ×2 (07:54→08:00)
[2019-06-09] MEDS: MAGNESIUM OXIDE 400 MG TAB PO SCH (07:54)
[2019-06-09 08:01] LABS: Basophils # (auto) 0.03 K/uL (0-0.2); Basophils % (auto) 0.5 %; Eosinophils # (auto) 0.08 K/uL (0-0.5); Eosinophils % (auto) 1.5 %; Hematocrit (blood only) 42.7 % (42-52); Hemoglobin 14.1 g/dL (14.0-18.0); Immature Granulocytes # (auto) 0.02 K/uL (0.00-0.02); Immature Granulocytes % (auto) 0.4 %; Lymphocytes % (auto) 38.1 %; Mean Corpuscular Hemoglobin 28.3 pg (25-34); Mean Corpuscular Volume 85.6 fL (80-100); Mean Platelet Volume 9.2 fL (7.4-10.4); Monocytes % (auto) 16.3 %; Neutrophils # (auto) 2.38 K/uL (1.4-6.5); Neutrophils % (auto) 43.2 %; Platelet Count 174 K/uL (130-400); RDW Coefficient of Variation 14.4 % (11.5-14.5); RDW Standard Deviation 44.9 fL (36.4-46.3); Red Blood Count 4.99 M/uL (4.7-6.1); White Blood Count 5.51 K/uL (4.8-10.8)
[2019-06-09 08:40] LABS: BUN Creatinine Ratio 18.1 (10-20); C Reactive Protein 7.02 mg/dl (0-0.29); Calcium 8.7 mg/dl (8.5-10.1); Creatinine Clr Calc Pharmacy 75.7 ml/min; Est GFR (African American) 79.6; Est GFR (Non-African American) 68.7; Magnesium 2.1 mg/dl (1.8-2.4); Potassium 3.7 mmol/L (3.5-5.1)
[2019-06-09] MEDS: DOXYCYCLINE HYCLATE 100 MG in DEXTROSE 5% 100 ML IV SCH ×2 (09:13→21:55)
[2019-06-09] MEDS: LOSARTAN POTASSIUM 50 MG TAB PO SCH (09:13)
--- NOTE | 2019-06-09 09:19 | Pulmonology Progress Note ---
Date of Service June 09, 2019 Assessment & Plan (1) Multilobar lung infiltrate: -- Multilobar pneumonia In a patient who is immunosuppressed s/p Heart transplant 2007 Follow-up septic work-up, influenza negative, ESR: 45, CRP: 10, procalcitonin: 0.19, sputum culture: Moderate normal alexis, mycoplasma IgM and urine Legionella antigen continue with broad-spectrum antibiotics with atypical coverage. Would like the patient to be on azithromycin or levofloxacin but given that patient has QTC of 598, agree with doxycycline On Mucomyst and guaifenesin. Continue with flutter valve usage --Right lower lobe opacity Given the history of heart transplant and history of lung injury during the procedure requiring another surgery, there is high likelihood that this is most likely scarring from chest tube insertion or injury during the surgery. CT chest without contrast from [address] abdomen pelvis from 2014 reviewed personally which was done at [place]. Patient had right lower lobe opacity present even at that time. This likely represents benign entity. Needs to be followed up with a CAT scan in 4-6 months without contrast. The right lower lobe opacity does not worry me anymore given that it was present even in 2009 and 2014. Plan: F/u chest x-ray from today Please note the above document was generated using voice recognition software. It may contain grammatical, syntax or spelling errors. (2) History of heart transplant: Subjective Patient seen and examined at bedside. No acute distress, no adverse events overnight. Cough is decreased in intensity. States that he is bringing up a lot of phlegm which is green in color. Denies any chest pain, no palpitations, no headache, no nausea, no vomiting, no dizziness. Good appetite. Review of Systems Review of Systems: All systems reviewed & are unremarkable except as noted in HPI & below Physical Exam Physical Exam: Constitutional: No acute distress HEENT: EOMI, PERRLA, moist mucous membrane, arcus senilis bilaterally Respiratory system: Positive bilateral lower lobe crackles, no rhonchi, no wheeze CVS: S1-S2 positive, no murmurs or gallops, tachycardia Abdomen: Soft, nontender, nondistended, positive bowel sounds x4 Extremities: +2 pulses bilaterally radialis/ dorsalis pedis, no cyanosis, +1 edema bilateral lower extremity Neuro: Awake alert oriented x3 Psych: Normal mood and affect G/U: No [place] At the time of examination patient was saturating 93% on room air with heart rate of 110 at rest. Skin: no rashes, warm and dry Lymphatic: no cervical or axillary lymphadenopathy Results & Data ([facility]) Vital Signs (Past 12 Hours) Vital Signs Temp Pulse Pulse Resp BP BP Pulse Ox 06/09/19 08:21 101 H 06/09/19 07:55 36.5 C 103 H 22 156/100 H 156/109 H 98 06/09/19 07:01 87 20 95 06/09/19 03:51 36.7 C 102 H 22 148/97 H 94 06/08/19 23:42 37.0 C 92 H 22 148/96 H 91 06/09/19 07:25 06/09/19 07:25 PG Care Time/CCT Total # of Minutes Spent Total Time Spent with Patient: Total time spent is greater than 50% in coordination of care (as documented) at patient's floor/unit and/or counseling patient: Coding Level of Care Code 79231 Subseq Hosp Care Lvl 3 Diagnoses Multilobar lung infiltrate R91.8 History of heart transplant Z94.1
--- NOTE | 2019-06-09 10:15 | XRay Report ---
XR chest 1V portable CLINICAL HISTORY: Atypical chest pain and shortness of breath. COMPARISON STUDY: June 06, 2019 FINDINGS: The heart remains enlarged. There are postsurgical changes of a midline sternotomy. There i s no failure. There is no focal pulmonary consolidation. There is chronic blunting of the right later al costophrenic angle. There is a right basilar opacity, likely representing rounded atelectasis as w as described on the recent CT scan.[ IMPRESSION: Cardiomegaly. No acute findings. ACT 112: Negative or not required by law. Electronically signed by: Jerrell Branch M.D. 06/09/2019 10:14 AM
--- NOTE | 2019-06-09 12:20 | Hospitalist Progress Note ---
Date of Service June 09, 2019 Assessment & Plan (1) Sepsis: Presented with tachycardia, fever, and tachypnea. Found to have multi lobar infiltrate on chest CT consistent with pneumonia. Improved. No further fevers isince admission, tachycardia persists but he is baseline tachycardic Not severe sepsis, blood pressures acceptable and does not need stress dosed steroids at this time Lactate normal at 1.2 Procalcitonin only 0.19 on admission and then trended downward to 0.10; ESR and CRP are somewhat elevated and now trending downward also Blood cultures NGTD Sputum culture mod normal alexis -Continue broad abx coverage given his immunosuppressed state-continue Zosyn and doxycycline-convert to po in AM -have since dcd vancomycin given neg MRSA swab -azithromycin or levofloxacin would be preferred but he has a prolonged QT -have since dcd IVFs -Continue Tylenol as needed for fever (2) Pneumonia: With sepsis as above now resolved Overall much improved CT of the chest with 2 lobar infiltrate in the right upper lobe, left lower lobe, with round atelectasis and possible scarring from previous lung surgery in the right lower lobe, negative for PE Is immunosuppressed given history of cardiac transplant-on tacrolimus and prednisone Sputum mod normal alexis CXR repeated 06/09 no worsening -continue abx as above with IV Zosyn, and doxycycline for atypical coverage -Pulmonology consultation appreciated-continue Mucomyst, Mucinex, benzonatate as needed for cough -Follow-up mycoplasma IgM and urine Legionella antigen-still pending -Continue with O2 supplementation to keep oxygen saturation around 94% - 95%-now weaned off Pulmonology compared his old CT from [place] to the CT from here and it showed a similar right lower lobe unusual finding and is most likely benign or a surgical scar from his previous lung injury Pulmonology also feels that this finding could represent cryptogenic organizing pneumonia, other fungal infection are a distant possibility. Patient has no eosinophilia and has no history of asthma. If there is no clinical improvement in the clinical status of the patient or if there is worsening in the infiltrates will consider doing bronchoscopy as per pulmonology. No need at this point -Right lower lobe lesion needs to be followed up with a CAT scan in 4-6 months without contrast. (3) Tachycardia: With persistent sinus tachycardia which was in the 120s on admission, now low 100s mostly ECG with sinus tachycardia and PACs. Suspect this is physiologic response to sepsis and pneumonia His baseline HR is 90s-low 100s as per Cardiac Technology Project Manager as he was denervated (vagus nerve) during surgery -received IV fluids -Follow on telemetry (4) Tachypnea: Secondary to pneumonia-now resolved with treatment of pneumonia (5) ARF (acute renal failure): Creatinine 1.4 on admission and jake to 1.6 after admission He did receive IV Bumex and p.o. Bumex and losartan on admission -Gave gentle IV fluids and now pullman conductor improved to 1.08 Baseline creatinine is 1.33 on labs that are scanned in from 10/2018 -dcd IVFs -weight is up--> have since restarted home Bumex 1mg po qAM (home dose is 1-2mg daily) -restart losartan today as pullman conductor stable -avoid nephrotoxins (6) Diabetes mellitus: On Lantus and Ozempic at home -Holding home Ozempic and giving Lantus 10 units daily here along with sliding scale insulin With some hyperglycemia here which is now improving Hemoglobin A1c is 7.8%-fairly well controlled (7) History of heart transplant: In 2007, at [place]. His tools programmer is Dr. Arian Reyes I called the cardiac salon coordinator-direct # is [phone]--> they are comfortable with him staying at [facility] as his condition is improving. [place] [facility] [place] LVEF 60%, mild-mod LVH, mild dilated RV, septal motion abnormality, mod-severe TR, mild MR, TAPSE 1.8 -Continue prednisone, tacrolimus -Check tacrolimus level-pending (8) Depression: continue home bupropion (9) Hypertension: Blood pressures becoming more elevated today -restart home losartan that was initially held for GENNY -restarted home Bumex -continue terazosin 2mg hs -Follow blood pressures Could give IV hydralazine if needed (10) CKD (chronic kidney disease) stage 3, GFR 30-59 ml/min: Baseline creatinine around 1.33 on outpatient labs scanned in from 10/2017 -Avoid nephrotoxins -Renally dose medications when appropriate -Follow BMP (11) History of subarachnoid hemorrhage: In the setting of a fall with head trauma several years ago -No acute issues (12) GERD (gastroesophageal reflux disease): No acute issues -Continue pantoprazole 40 mg twice daily (13) CHF (congestive heart failure): Has a history of severe CHF which was treated with cardiac transplant Now with Chronic preserved EF CHF He is followed closely by the cardiac transplant team at [place] and has been very stable, no recent weight gain or swelling -Held Bumex here and gave gentle IV fluids given sepsis as above--> have since dcd IVFs and restarted bumex 1mg po qAM -restart losartan -Most recent ECHO 06/2018 as above, preserved EF -He is not in acute failure now, BNP only minimally elevated at this time -Follow I's and O's, daily weights (14) Hypokalemia: K+ 3.7 today after replacement yesterday Follow BMP in AM (15) Diarrhea: loose stools associated with abx use C. diff neg Can use imodium prn (16) DVT prophylaxis: Heparin for DVT proph Admission and Anticipated Discharge Date Admission Date: June 06, 2019 Anticipated date of discharge: 06/10/19 Subjective Pt feeling a little better each day. Less cough today, min sputum production, no hemoptysis. BPs high today and losartan and Bumex restarted. Denies CP or SOB, is feeling stronger with ambulating to the bathroom. Denies nausea or abd pain. His loose stools have slowed down and C. diff was negative Tele with ST, rates 100s-140s with ambulation Review of Systems Review of Systems: All systems reviewed & are unremarkable except as noted in HPI & below Physical Exam Constitutional: WD/WN, vitals as above Eyes: + anicteric sclerae Neck: trachea midline, no thyromegaly Respiratory: normal respiratory effort and + cough; no labored breathing Auscultation: + crackles (At the right base and left base but less than previous); no rhonchi and no wheezes Cardiovascular: Rate/Rhythm: regular rhythm and + tachycardic Heart Sounds: no murmur Vessels: no JVD Extremities: no edema Gastrointestinal (Abdomen): normal bowel sounds, soft, nontender, no hepatosplenomegaly Musculoskeletal: Extremities: extremities normal to inspection; no cyanosis and no clubbing Skin: no rashes, warm and dry Neurologic: moves all extremities and awake; no focal motor deficits Psychiatric: A+Ox3, euthymic affect Lymphatic: no lymphedema Results & Data ([facility]) Vital Signs (Past 12 Hours) Vital Signs Temp Pulse Pulse Resp BP BP Pulse Ox 06/09/19 08:21 101 H 06/09/19 07:55 36.5 C 103 H 22 156/100 H 156/109 H 98 06/09/19 07:01 87 20 95 06/09/19 03:51 36.7 C 102 H 22 148/97 H 94 Laboratory Results 06/09/19 06/09/19 06/09/19 Range/Units 20:44 16:41 11:36 WBC (4.8-10.8) K/uL RBC (4.7-6.1) M/uL Hgb (14.0-18.0) g/dL Hct (42-52) % MCV (80-100) fL MCH (25-34) pg MCHC (32-36) g/dL RDW Std Deviation (36.4-46.3) fL RDW Coeff of Miranda (11.5-14.5) % Plt Count (130-400) K/uL MPV (7.4-10.4) fL Immature Gran % (Auto) % Neut % (Auto) % Lymph % (Auto) % [place] % (Auto) % Eos % (Auto) % Baso % (Auto) % Immature Gran # (Auto) (0.00-0.02) K/uL Neut # (Auto) (1.4-6.5) K/uL Lymph # (Auto) (1.2-3.4) K/uL [place] # (Auto) (0.11-0.59) K/uL Eos # (Auto) (0-0.5) K/uL Baso # (Auto) (0-0.2) K/uL ESR (0-14) mm/hr Sodium (136-145) mmol/L Potassium (3.5-5.1) mmol/L Chloride (98-107) mmol/L Carbon Dioxide (21-32) mmol/L Anion Gap (3-11) BUN (7-18) mg/dl Creatinine (0.6-1.4) mg/dl Est Cr Clr Drug Dosing ml/min Est GFR ( Amer) Est GFR (Non-Af Amer) BUN/Creatinine Ratio (10-20) Glucose (70-99) mg/dl POC Glucose 110 H 124 H 172 H (70-99) mg/dl Calcium (8.5-10.1) mg/dl Magnesium (1.8-2.4) mg/dl C-Reactive Protein (0-0.29) mg/dl Procalcitonin (0-0.5) ng/ml 06/09/19 06/09/19 06/09/19 Range/Units 07:41 07:25 07:25 WBC (4.8-10.8) K/uL RBC (4.7-6.1) M/uL Hgb (14.0-18.0) g/dL Hct (42-52) % MCV (80-100) fL MCH (25-34) pg MCHC (32-36) g/dL RDW Std Deviation (36.4-46.3) fL RDW Coeff of Miranda (11.5-14.5) % Plt Count (130-400) K/uL MPV (7.4-10.4) fL Immature Gran % (Auto) % Neut % (Auto) % Lymph % (Auto) % [place] % (Auto) % Eos % (Auto) % Baso % (Auto) % Immature Gran # (Auto) (0.00-0.02) K/uL Neut # (Auto) (1.4-6.5) K/uL Lymph # (Auto) (1.2-3.4) K/uL [place] # (Auto) (0.11-0.59) K/uL Eos # (Auto) (0-0.5) K/uL Baso # (Auto) (0-0.2) K/uL ESR (0-14) mm/hr Sodium 140 (136-145) mmol/L Potassium 3.7 (3.5-5.1) mmol/L Chloride 107 (98-107) mmol/L Carbon Dioxide 25 (21-32) mmol/L Anion Gap 8.0 (3-11) BUN 20 H (7-18) mg/dl Creatinine 1.08 (0.6-1.4) mg/dl Est Cr Clr Drug Dosing 75.7 ml/min Est GFR ( Amer) 79.6 Est GFR (Non-Af Amer) 68.7 BUN/Creatinine Ratio 18.1 (10-20) Glucose 82 (70-99) mg/dl POC Glucose 88 (70-99) mg/dl Calcium 8.7 (8.5-10.1) mg/dl Magnesium 2.1 (1.8-2.4) mg/dl C-Reactive Protein 7.02 H (0-0.29) mg/dl Procalcitonin 0.10 (0-0.5) ng/ml 06/09/19 06/09/19 Range/Units 07:25 07:25 WBC 5.51 (4.8-10.8) K/uL RBC 4.99 (4.7-6.1) M/uL Hgb 14.1 (14.0-18.0) g/dL Hct 42.7 (42-52) % MCV 85.6 (80-100) fL MCH 28.3 (25-34) pg MCHC 33.0 (32-36) g/dL RDW Std Deviation 44.9 (36.4-46.3) fL RDW Coeff of Miranda 14.4 (11.5-14.5) % Plt Count 174 (130-400) K/uL MPV 9.2 (7.4-10.4) fL Immature Gran % (Auto) 0.4 % Neut % (Auto) 43.2 % Lymph % (Auto) 38.1 % [place] % (Auto) 16.3 % Eos % (Auto) 1.5 % Baso % (Auto) 0.5 % Immature Gran # (Auto) 0.02 (0.00-0.02) K/uL Neut # (Auto) 2.38 (1.4-6.5) K/uL Lymph # (Auto) 2.10 (1.2-3.4) K/uL [place] # (Auto) 0.90 H (0.11-0.59) K/uL Eos # (Auto) 0.08 (0-0.5) K/uL Baso # (Auto) 0.03 (0-0.2) K/uL ESR 36 H (0-14) mm/hr Sodium (136-145) mmol/L Potassium (3.5-5.1) mmol/L Chloride (98-107) mmol/L Carbon Dioxide (21-32) mmol/L Anion Gap (3-11) BUN (7-18) mg/dl Creatinine (0.6-1.4) mg/dl Est Cr Clr Drug Dosing ml/min Est GFR ( Amer) Est GFR (Non-Af Amer) BUN/Creatinine Ratio (10-20) Glucose (70-99) mg/dl POC Glucose (70-99) mg/dl Calcium (8.5-10.1) mg/dl Magnesium (1.8-2.4) mg/dl C-Reactive Protein (0-0.29) mg/dl Procalcitonin (0-0.5) ng/ml Diagnostic Findings CXR image personally reviewed by me and agree with the following report: FINDINGS: The heart remains enlarged. There are postsurgical changes of a midline sternotomy. There is no failure. There is no focal pulmonary consolidation. There is chronic blunting of the right lateral costophrenic angl e. There is a right basilar opacity, likely representing rounded atelectasis as was described on the recent CT scan.[ IMPRESSION: Cardiomegaly. No acute findings. PG Care Time/CCT Total # of Minutes Spent Total Time Spent with Patient: Total time spent is greater than 50% in coordination of care (as documented) at patient's floor/unit and/or counseling patient: Coding Level of Care Code 99752 Subseq Hosp Care Lvl 3 Diagnoses Sepsis A41.9; R65.20; N17.9 Acute renal failure type: unspecified Sepsis acute organ dysfunction status: with acute organ dysfunction Sepsis type: sepsis due to unspecified organism Severe sepsis acute organ dysfunction type: acute renal failure Severe sepsis shock status: without septic shock Pneumonia J18.9 Laterality: bilateral Lung location: unspecified part of lung Pneumonia type: due to unspecified organism Tachycardia R00.0 Tachypnea R06.82 ARF (acute renal failure) N17.9 Diabetes mellitus E11.9; Z79.4 Diabetes mellitus complication status: without complication Diabetes mellitus fdc insulin use: with fdc use Diabetes mellitus type: type 2 History of heart transplant Z94.1 Depression F32.9 Depression Type: unspecified Hypertension I10 Hypertension type: essential hypertension CKD (chronic kidney disease) stage 3, GFR 30-59 ml/min N18.3 History of subarachnoid hemorrhage Z86.79 GERD (gastroesophageal reflux disease) K21.9 Esophagitis presence: without esophagitis CHF (congestive heart failure) I50.9 Heart failure chronicity: unspecified Heart failure type: unspecified Hypokalemia E87.6 Diarrhea R19.7 DVT prophylaxis Z29.9 (1) Diabetes mellitus Diabetes mellitus complication status: without complication Diabetes mellitus dedicated intermodal truck driver insulin use: with fdc use Diabetes mellitus type: type 2 Qualified Code(s): E11.9 - Type 2 diabetes mellitus without complications; Z79.4 - dedicated intermodal truck driver (current) use of insulin (2) CHF (congestive heart failure) Heart failure chronicity: unspecified Heart failure type: unspecified Qualified Code(s): I50.9 - Heart failure, unspecified (3) Depression Depression Type: unspecified Qualified Code(s): F32.9 - Major depressive disorder, single episode, unspecified (4) Sepsis Acute renal failure type: unspecified Sepsis acute organ dysfunction status: with acute organ dysfunction Sepsis type: sepsis due to unspecified organism Severe sepsis acute organ dysfunction type: acute renal failure Severe sepsis shock status: without septic shock Qualified Code(s): A41.9 - Sepsis, unspecified organism; R65.20 - Severe sepsis without septic shock; N17.9 - Acute kidney failure, unspecified (5) GERD (gastroesophageal reflux disease) Esophagitis presence: without esophagitis Qualified Code(s): K21.9 - Gastro- esophageal reflux disease without esophagitis (6) Hypertension Hypertension type: essential hypertension Qualified Code(s): I10 - Essential (primary) hypertension (7) Pneumonia Laterality: bilateral Lung location: unspecified part of lung Pneumonia type: due to unspecified organism Qualified Code(s): J18.9 - Pneumonia, unspecified organism
[2019-06-09] MEDS: PRAVASTATIN SOD 20 MG TAB PO SCH (21:57)
[2019-06-09] MEDS: TERAZOSIN HCL 1 MG CAP PO SCH (21:57)
[2019-06-09] MEDS: TAMSULOSIN HCL 0.4 MG CAP PO SCH (21:58)
[2019-06-10] MEDS ORDERED: HydrALAZINE HCL 20 MG/ML VIAL IV PRN (00:02)
[2019-06-10] MEDS: ACETAMINOPHEN 325 MG TAB PO PRN ×2 (00:03→20:50)
[2019-06-10] MEDS: ALBUT/IPRATROP 3MG/0.5MG NEB 3 ML VIAL NEB PRN ×3 (02:42→19:18)
[2019-06-10] MEDS ORDERED: SODIUM CHLORIDE 0.65% NA SOLN 45 ML (OCEAN) PRN (03:41)
[2019-06-10] MEDS: PIPERACILLIN/TAZOBACTAM 3.375 GM in DEXTROSE 5% 100 ML IV SCH ×3 (04:39→08:00)
[2019-06-10 06:39] LABS: Basophils # (auto) 0.01 K/uL (0-0.2); Basophils % (auto) 0.2 %; Eosinophils # (auto) 0.08 K/uL (0-0.5); Eosinophils % (auto) 1.7 %; Hematocrit (blood only) 42.4 % (42-52); Hemoglobin 14.1 g/dL (14.0-18.0); Immature Granulocytes # (auto) 0.02 K/uL (0.00-0.02); Immature Granulocytes % (auto) 0.4 %; Lymphocytes # (auto) 1.47 K/uL (1.2-3.4); Lymphocytes % (auto) 31.1 %; Mean Corpuscular Hemoglobin 28.8 pg (25-34); Mean Corpuscular Hgb Conc 33.3 g/dL (32-36); Mean Corpuscular Volume 86.5 fL (80-100); Mean Platelet Volume 9.6 fL (7.4-10.4); Monocytes # (auto) 0.89 K/uL (0.11-0.59); Monocytes % (auto) 18.9 %; Neutrophils # (auto) 2.25 K/uL (1.4-6.5); Neutrophils % (auto) 47.7 %; Platelet Count 187 K/uL (130-400); RDW Coefficient of Variation 14.4 % (11.5-14.5); RDW Standard Deviation 45.2 fL (36.4-46.3); White Blood Count 4.72 K/uL (4.8-10.8)
[2019-06-10] MEDS: HEPARIN SOD 5,000 UNIT/0.5 ML VIAL SQ SCH ×3 (06:48→20:53)
[2019-06-10] MEDS: ACETYLCYSTEINE 20% INHAL SOLN 4ML ***DISPENSED BY RESP. INH SCH ×2 (06:54→19:18)
[2019-06-10 07:12] LABS: BUN Creatinine Ratio 16.2 (10-20); Calcium 8.8 mg/dl (8.5-10.1); Creatinine Clr Calc Pharmacy 77.6 ml/min; Est GFR (African American) 82.4; Est GFR (Non-African American) 71.1; Potassium 3.4 mmol/L (3.5-5.1)
[2019-06-10] MEDS: INSULIN ASPART 100 UNITS/ML 3 ML PEN SC SCH ×4 (07:57→20:55)
[2019-06-10] MEDS: INSULIN GLARGINE SOLOSTAR 100 UNITS/ML 3 ML PEN SQ SCH (07:57)
[2019-06-10] MEDS: guaiFENesin 600 MG TABCR PO SCH ×2 (08:00→20:54)
[2019-06-10] MEDS: PANTOprazole 40 MG TAB PO SCH ×2 (08:00→20:56)
[2019-06-10] MEDS: MULTIVITAMIN TAB PO SCH (08:00)
[2019-06-10] MEDS: predniSONE 5 MG TAB PO SCH (08:00)
[2019-06-10] MEDS: BuPROPion SR 100 MG TABCR PO SCH (08:00)
[2019-06-10] MEDS: BUMETANIDE 1 MG TAB PO SCH (08:01)
[2019-06-10] MEDS: TACROLIMUS 0.5 MG CAP PO SCH ×2 (08:01→20:53)
[2019-06-10] MEDS: MAGNESIUM OXIDE 400 MG TAB PO SCH (08:01)
[2019-06-10] MEDS: CHOLECALCIFEROL 1,000 UNITS 25 MCG TAB PO SCH (08:01)
[2019-06-10] MEDS: LOSARTAN POTASSIUM 50 MG TAB PO SCH (08:01)
[2019-06-10] MEDS: DOXYCYCLINE HYCLATE 100 MG CAP PO SCH ×2 (08:02→20:56)
--- NOTE | 2019-06-10 11:18 | Pulmonology Progress Note ---
Date of Service June 10, 2019 Assessment & Plan (1) Multilobar lung infiltrate: -- Multilobar pneumonia In a patient who is immunosuppressed s/p Heart transplant 2008influenza negative, ESR: 45, CRP: 10, procalcitonin: 0.19, sputum culture: Moderate normal alexis continue with broad-spectrum antibiotics with atypical coverage. Would like the patient to be on azithromycin or levofloxacin but given that patient has QTC of 598, agree with doxycycline On Mucomyst and guaifenesin. Continue with flutter valve usage --Right lower lobe opacity Given the history of heart transplant and history of lung injury during the procedure requiring another surgery, there is high likelihood that this is most likely scarring from chest tube insertion or injury during the surgery. CT chest without contrast from [address] abdomen pelvis from 2014 reviewed personally which was done at [place]. Patient had right lower lobe opacity present even at that time. This likely represents benign entity. Needs to be followed up with a CAT scan in 4-6 months without contrast. The right lower lobe opacity does not worry me anymore given that it was present even in 2009 and 2014. Plan: Chest x-ray 06/09/2019. Shows no clear infiltrate. The right lower lobe opacities likely represents scarring which was appreciated on CT chest. Recommend de-escalation of antibiotics. Recommend doxycycline or Augmentin for total of 10 days from initiation of antibiotics in the hospital. No further recommendations from pulmonary perspective. Will sign off, recall if needed. Please note the above document was generated using voice recognition software. It may contain grammatical, syntax or spelling errors. (2) History of heart transplant: Subjective Patient seen and examined at bedside. No acute distress, no adverse events overnight. Shortness of breath is improved. Cough is decreased in intensity. Still bringing up phlegm which is decreased in amount. Denies any chest pain, no palpitations, no headache, no nausea, no vomiting. Patient states that he has been walking around the hospital without any difficulty. Good appetite. Review of Systems Review of Systems: All systems reviewed & are unremarkable except as noted in HPI & below Physical Exam Physical Exam: Constitutional: No acute distress HEENT: EOMI, PERRLA, moist mucous membrane, arcus senilis bilaterally Respiratory system: Positive bilateral lower lobe crackles, no rhonchi, no wheeze CVS: S1-S2 positive, no murmurs or gallops, tachycardia Abdomen: Soft, nontender, nondistended, positive bowel sounds x4 Extremities: +2 pulses bilaterally radialis/ dorsalis pedis, no cyanosis, +1 edema bilateral lower extremity Neuro: Awake alert oriented x3 Psych: Normal mood and affect G/U: No [place] At the time of examination patient was saturating 93% on room air with heart rate of 111 at rest. Skin: no rashes, warm and dry Lymphatic: no cervical or axillary lymphadenopathy Results & Data ([facility]) Vital Signs (Past 12 Hours) Vital Signs Temp Pulse Pulse Resp BP BP Pulse Ox 06/10/19 08:00 106 H 06/10/19 07:53 36.6 C 112 H 22 151/96 H 153/90 H 90 06/10/19 06:56 103 H 18 91 06/10/19 03:56 36.6 C 108 H 20 155/103 H 92 06/10/19 02:42 102 H 16 93 06/10/19 02:35 113 H 134/81 06/09/19 23:23 36.9 C 100 H 20 149/102 H 161/121 H 93 06/10/19 06:19 06/10/19 06:19 PG Care Time/CCT Total # of Minutes Spent Total Time Spent with Patient: Total time spent is greater than 50% in coordination of care (as documented) at patient's floor/unit and/or counseling patient: Coding Level of Care Code 77143 Subseq Hosp Care Lvl 3 Diagnoses Multilobar lung infiltrate R91.8 History of heart transplant Z94.1
[2019-06-10] MEDS ORDERED: BUMETANIDE 1 MG TAB PO ONE (14:40)
[2019-06-10] MEDS: AMOXICILLIN/CLAVULANATE 875 MG TAB PO SCH (16:38)
--- NOTE | 2019-06-10 20:23 | Hospitalist Progress Note ---
Date of Service June 10, 2019 Assessment & Plan (1) Sepsis: Sepsis, POA, now resolved Presented with tachycardia, fever, and tachypnea. Found to have multi lobar infiltrate on chest CT consistent with pneumonia. No further fevers since admission, tachycardia persists but he is baseline tachycardic due to denervation of vagus nerve Not severe sepsis, blood pressures acceptable and did not need stress dosed steroids at this time Lactate normal at 1.2 Procalcitonin only 0.19 on admission and then trended downward to 0.10; ESR and CRP are somewhat elevated and now trending downward also Blood cultures remain NGTD Sputum culture mod normal alexis -treated with broad abx coverage given his immunosuppressed state-initially Zosyn/Doxy/Vanco and then dcd Vanco with neg MRSA swab -now will convert to po Augmentin and discontinue Zosyn--> Pulm recommends Augmentin to finish out 10 day course -continue doxycycline now po also to complete 10 days -azithromycin or levofloxacin would be preferred but he has a prolonged QT -initially received IVFs for dehydration, but now back on diuretics as below -Continue Tylenol as needed (2) Pneumonia: With sepsis as above now resolved Overall slowly improving, still with cough and VERGARA, but no longer requiring O2 CT of the chest with lobar infiltrate in the right upper lobe, left lower lobe, with round atelectasis and possible scarring from previous lung surgery in the right lower lobe, negative for PE Is immunosuppressed given history of cardiac transplant-on tacrolimus and prednisone Sputum mod normal alexis CXR repeated 06/09 no worsening -continue abx as above now converting to AUgmentin and doxycycline for total 10 days since initiation of abx in hospital -Pulmonology consultation appreciated-PNA clinic follow up order placed -continue Mucinex, benzonatate as needed for cough, continue flutter valve -dc Mucomyst as causes coughing spasms -Follow-up mycoplasma IgM and urine Legionella antigen-still pending -Continue with O2 supplementation to keep oxygen saturation around 94% - 95%-now weaned off Pulmonology compared his old CT from [place] to the CT from here and it showed a similar right lower lobe unusual finding and is most likely benign or a surgical scar from his previous lung injury Pulmonology also feels that this finding could represent cryptogenic organizing pneumonia, other fungal infection are a distant possibility. Patient has no eosinophilia and has no history of asthma. If there is no clinical improvement in the clinical status of the patient or if there is worsening in the infiltrates will consider doing bronchoscopy as per pulmonology. No need at this point -Right lower lobe lesion needs to be followed up with a CAT scan in 4-6 months without contrast. (3) Tachycardia: With persistent sinus tachycardia which was in the 120s on admission, now low 100s mostly but jumos to 140s with ambulation ECG with sinus tachycardia and PACs. Suspect this is physiologic response to sepsis and pneumonia His baseline HR is 90s-low 100s as per Cardiac Pollution Control Engineer as he was denervated (vagus nerve) during surgery -received IV fluids -Follow on telemetry (4) Tachypnea: Secondary to pneumonia-now resolved with treatment of pneumonia (5) ARF (acute renal failure): Creatinine 1.4 on admission and jake to 1.6 after admission He did receive IV Bumex and p.o. Bumex and losartan on admission -Gave gentle IV fluids and now financial systems analyst improved to 1.1 Baseline creatinine is 1.33 on labs that are scanned in from 10/2018 -dcd IVFs -weight is up--> have since restarted home Bumex 1mg po qAM (home dose is 1-2mg daily) and will increase to 2mg daily today for JVD -continue losartan (was initially held) -avoid nephrotoxins (6) Hypertension: Blood pressures continue to be significantly elevated despite restarting losartan and Bumex Required IV hydralazine last night -continue home losartan 100mg daily -increase Bumex to 2mg daily (home dose 1-2mg daily) -increase terazosin to 4mg hs -Follow blood pressures -continue IV hydralazine as needed (7) History of heart transplant: In 2007, at [place]. His therapeutic sales specialist is Dr. Arian Reyes I called the cardiac pharmacy benefits coordinator-direct # is [phone]--> they are comfortable with him staying at [facility] as his condition is improving. [place] [facility] [place] LVEF 60%, mild-mod LVH, mild dilated RV, septal motion abnormality, mod-severe TR, mild MR, TAPSE 1.8 -Continue prednisone, tacrolimus -Check tacrolimus level-within normal limits at 10 (8) Diabetes mellitus: On Lantus and Ozempic at home -Holding home Ozempic and giving Lantus 10 units daily here along with sliding scale insulin With some hyperglycemia here which is now improving Hemoglobin A1c is 7.8%-fairly well controlled (9) Depression: continue home bupropion (10) CKD (chronic kidney disease) stage 3, GFR 30-59 ml/min: Baseline creatinine around 1.33 on outpatient labs scanned in from 10/2017 -Avoid nephrotoxins -Renally dose medications when appropriate -Follow BMP (11) History of subarachnoid hemorrhage: In the setting of a fall with head trauma several years ago -No acute issues (12) GERD (gastroesophageal reflux disease): No acute issues -Continue pantoprazole 40 mg twice daily (13) CHF (congestive heart failure): Has a history of severe systolic CHF which was treated with cardiac transplant Now with Chronic preserved EF CHF He is followed closely by the cardiac transplant team at [place] and has been very stable, no recent weight gain or swelling -Held Bumex here and gave gentle IV fluids given sepsis as above--> have since dcd IVFs and restarted bumex -continue losartan -Most recent ECHO 06/2018 as above, preserved EF -He is not in acute failure now, BNP only minimally elevated at this time -Follow I's and O's, daily weights (14) Hypokalemia: K+ 3.4 today after replacement yesterday replace with KCl po today Follow BMP in AM (15) Diarrhea: loose stools associated with abx use, now resolved C. diff neg Can use imodium prn (16) DVT prophylaxis: Heparin for DVT proph Dispo-continued stay for elevated BPs in setting of cardiac transplant If BPs improved and feeling better, can dc to home on Tuesday Admission and Anticipated Discharge Date Admission Date: June 06, 2019 Anticipated date of discharge: 06/11/19 Subjective Pt seen twice today. First time was before lunch and he was feeling worse than the day prior. Reports he did not sleep well at all due to multipl e interruptions including two IVs infiltrating and needed IV replacement. He also felt very flushed in the face and did not feel well after walking back from the bathroom and his BPs were noted to be severely elevated. He was given IV hydralazine. BPs today remain very high, mainly diastolic. I gave him an extra 1mg of the Bumex and saw him again later in the evening and BPs were slightly improved but remained elevated. Decided to increase his Hytrin and keep him again overnight. He also reports that the Mucomyst nebs make him have severe coughing fits and then he cannot catch his breath for a while. Will dc the Mucomyst Tele remains with ST 100-140s He was then witnessed ambulating the halls with his without O2 and looked good doing so Review of Systems Review of Systems: All systems reviewed & are unremarkable except as noted in HPI & below (no further diarrhea) Physical Exam Constitutional: WD/WN, vitals as above (appears tired) Eyes: + anicteric sclerae Neck: trachea midline, no thyromegaly Respiratory: normal respiratory effort; no labored breathing Auscultation: + crackles (At the right base and left base but less than previous); no rhonchi and no wheezes Cardiovascular: Rate/Rhythm: regular rhythm and + tachycardic Heart Sounds: no murmur Vessels: + JVD (mild) Extremities: no edema Gastrointestinal (Abdomen): normal bowel sounds, soft, nontender, no hepatosplenomegaly Musculoskeletal: Extremities: extremities normal to inspection; no cyanosis and no clubbing Skin: no rashes, warm and dry Neurologic: moves all extremities and awake; no focal motor deficits Psychiatric: A+Ox3, euthymic affect Lymphatic: no lymphedema Results & Data ([facility]) Vital Signs (Past 12 Hours) Vital Signs Temp Pulse Pulse Resp BP BP Pulse Ox 06/10/19 19:18 103 H 18 95 06/10/19 19:00 36.8 C 112 H 20 158/112 H 96 06/10/19 17:45 148/109 H 06/10/19 16:00 103 H 06/10/19 14:59 36.6 C 102 H 20 142/97 H 94 06/10/19 11:28 36.4 C L 110 H 22 161/99 H 153/101 H 92 Laboratory Results 06/10/19 06/10/19 06/10/19 Range/Units 20:30 16:15 11:32 Sodium (136-145) mmol/L Potassium (3.5-5.1) mmol/L Chloride (98-107) mmol/L Carbon Dioxide (21-32) mmol/L Anion Gap (3-11) BUN (7-18) mg/dl Creatinine (0.6-1.4) mg/dl Est Cr Clr Drug Dosing ml/min Est GFR ( Amer) Est GFR (Non-Af Amer) BUN/Creatinine Ratio (10-20) Glucose (70-99) mg/dl POC Glucose 114 H 127 H 144 H (70-99) mg/dl Calcium (8.5-10.1) mg/dl 06/10/19 06/10/19 Range/Units 07:27 06:19 Sodium 141 (136-145) mmol/L Potassium 3.4 L (3.5-5.1) mmol/L Chloride 107 (98-107) mmol/L Carbon Dioxide 26 (21-32) mmol/L Anion Gap 7.0 (3-11) BUN 17 (7-18) mg/dl Creatinine 1.05 (0.6-1.4) mg/dl Est Cr Clr Drug Dosing 77.6 ml/min Est GFR ( Amer) 82.4 Est GFR (Non-Af Amer) 71.1 BUN/Creatinine Ratio 16.2 (10-20) Glucose 98 (70-99) mg/dl POC Glucose 99 (70-99) mg/dl Calcium 8.8 (8.5-10.1) mg/dl PG Care Time/CCT Total # of Minutes Spent Total Time Spent with Patient: Total time spent is greater than 50% in coordination of care (as documented) at patient's floor/unit and/or counseling patient: Coding Level of Care Code 93908 Subseq Hosp Care Lvl 3 Diagnoses Sepsis A41.9; R65.20; N17.9 Acute renal failure type: unspecified Sepsis acute organ dysfunction status: with acute organ dysfunction Sepsis type: sepsis due to unspecified organism Severe sepsis acute organ dysfunction type: acute renal failure Severe sepsis shock status: without septic shock Pneumonia J18.9 Laterality: bilateral Lung location: unspecified part of lung Pneumonia type: due to unspecified organism Tachycardia R00.0 Tachypnea R06.82 ARF (acute renal failure) N17.9 Hypertension I10 Hypertension type: essential hypertension History of heart transplant Z94.1 Diabetes mellitus E11.9; Z79.4 Diabetes mellitus complication status: without complication Diabetes mellitus nursing home insulin use: with terminal press operator use Diabetes mellitus type: type 2 Depression F32.9 Depression Type: unspecified CKD (chronic kidney disease) stage 3, GFR 30-59 ml/min N18.3 History of subarachnoid hemorrhage Z86.79 GERD (gastroesophageal reflux disease) K21.9 Esophagitis presence: without esophagitis CHF (congestive heart failure) I50.9 Heart failure chronicity: unspecified Heart failure type: unspecified Hypokalemia E87.6 Diarrhea R19.7 DVT prophylaxis Z29.9 (1) Diabetes mellitus Diabetes mellitus complication status: without complication Diabetes mellitus nursing home insulin use: with nursing home use Diabetes mellitus type: type 2 Qualified Code(s): E11.9 - Type 2 diabetes mellitus without complications; Z79.4 - terminal press operator (current) use of insulin (2) CHF (congestive heart failure) Heart failure chronicity: unspecified Heart failure type: unspecified Qualified Code(s): I50.9 - Heart failure, unspecified (3) Depression Depression Type: unspecified Qualified Code(s): F32.9 - Major depressive disorder, single episode, unspecified (4) Sepsis Acute renal failure type: unspecified Sepsis acute organ dysfunction status: with acute organ dysfunction Sepsis type: sepsis due to unspecified organism Severe sepsis acute organ dysfunction type: acute renal failure Severe sepsis shock status: without septic shock Qualified Code(s): A41.9 - Sepsis, unspecified organism; R65.20 - Severe sepsis without septic shock; N17.9 - Acute kidney failure, unspecified (5) GERD (gastroesophageal reflux disease) Esophagitis presence: without esophagitis Qualified Code(s): K21.9 - Gastro- esophageal reflux disease without esophagitis (6) Hypertension Hypertension type: essential hypertension Qualified Code(s): I10 - Essential (primary) hypertension (7) Pneumonia Laterality: bilateral Lung location: unspecified part of lung Pneumonia type: due to unspecified organism Qualified Code(s): J18.9 - Pneumonia, unspecified organism
[2019-06-10] MEDS: PRAVASTATIN SOD 20 MG TAB PO SCH (20:53)
[2019-06-10] MEDS: TAMSULOSIN HCL 0.4 MG CAP PO SCH (20:54)
[2019-06-10] MEDS ORDERED: TERAZOSIN HCL 1 MG CAP PO SCH (21:00)
[2019-06-11] MEDS: HEPARIN SOD 5,000 UNIT/0.5 ML VIAL SQ SCH ×2 (06:26→14:44)
[2019-06-11 07:53] LABS: BUN Creatinine Ratio 16.6 (10-20); Calcium 9.1 mg/dl (8.5-10.1); Creatinine Clr Calc Pharmacy 65.7 ml/min; Est GFR (Non-African American) 58.7; Potassium 3.6 mmol/L (3.5-5.1)
[2019-06-11] MEDS ORDERED: BUMETANIDE 1 MG TAB PO SCH (09:00)
[2019-06-11] MEDS: BuPROPion SR 100 MG TABCR PO SCH (09:02)
[2019-06-11] MEDS: CHOLECALCIFEROL 1,000 UNITS 25 MCG TAB PO SCH (09:02)
[2019-06-11] MEDS: MULTIVITAMIN TAB PO SCH (09:02)
[2019-06-11] MEDS: LOSARTAN POTASSIUM 50 MG TAB PO SCH (09:02)
[2019-06-11] MEDS: guaiFENesin 600 MG TABCR PO SCH (09:04)
[2019-06-11] MEDS: AMOXICILLIN/CLAVULANATE 875 MG TAB PO SCH (09:04)
[2019-06-11] MEDS: MAGNESIUM OXIDE 400 MG TAB PO SCH (09:05)
[2019-06-11] MEDS: DOXYCYCLINE HYCLATE 100 MG CAP PO SCH (09:05)
[2019-06-11] MEDS: predniSONE 5 MG TAB PO SCH (09:05)
[2019-06-11] MEDS: PANTOprazole 40 MG TAB PO SCH (09:05)
[2019-06-11] MEDS: TACROLIMUS 0.5 MG CAP PO SCH (09:05)
[2019-06-11] MEDS: INSULIN ASPART 100 UNITS/ML 3 ML PEN SC SCH ×2 (09:06→12:10)
[2019-06-11] MEDS: INSULIN GLARGINE SOLOSTAR 100 UNITS/ML 3 ML PEN SQ SCH ×2 (09:06→09:10)
--- NOTE | 2019-06-11 17:30 | Discharge Summary ---
Date of Service June 11, 2019 Admission HPI Per Admitting Provider 69 y/o M c/o cough and congestion. Pt states this started around Tuesday and has continued to worsen. No SOB when he is not coughing. Cough feels like something is "stuck and I can't get rid of it". Has felt like he might have a slight fever, but has not taken his temp. Appetite has been down and there has been minimal PO intake the last few days. States he has never been sick like this prior. No hx of inhaler use. Pt did not take today's bumex dosing due to decreased PO intake. He does have some baseline LE swelling. Principal Diagnosis Multifocal pneumonia Discharge Exam Constitutional WD/WN, vitals as above Eyes EOM intact bilaterally; no conjunctival abnormality ENMT external ear and nose normal, oropharynx normal Neck trachea midline, no thyromegaly normal visual inspection Respiratory normal respiratory effort, lungs clear to auscultation no respiratory distress Cardiovascular RRR, no murmur, no edema Gastrointestinal (Abdomen) Inspection/Auscultation: abdomen normal to inspection; abdomen not distended Musculoskeletal no cyanosis or clubbing, extremities motor strength 5/5 Skin no rashes, warm and dry Neurologic moves all extremities and awake Psychiatric Orientation: alert, oriented to person and cooperative Discharge Data Allergies Allergy/AdvReac Type Severity Reaction Status Date / Time shellfish derived Allergy Severe HIVES Verified 06/06/19 16:41 naproxen Allergy Unknown BROKE OUT Verified 06/06/19 16:41 IN A SWEAT oxycodone AdvReac Intermediate HALLUCINATI Verified 06/06/19 16:41 ON Consultations 06/06/19 18:32 ED Decision to Admit Stat 06/06/19 20:09 Consult Case Management - Discharge Planning Routine 06/07/19 10:07 Consult Pulmonology Routine 06/07/19 19:36 Consult Cardiology Routine 06/10/19 14:29 [facility] COPD/Pnx Program Referral Routine Ordered Studies 06/06/19 17:30 CT angio chest PE protocol Stat Hospital Course (1) Pneumonia: CT of the chest with lobar infiltrate in the right upper lobe, left lower lobe, with round atelectasis and possible scarring from previous lung surgery in the right lower lobe, negative for PE - Is immunosuppressed given history of cardiac transplant-on tacrolimus and prednisone - Seen by pulmonology on 06/10 - Discharge on longer course of antibiotics due to immune suppression -> 10-day course of Augmentin and doxycycline. - Follow-up mycoplasma IgM and urine Legionella antigen - still pending on discharge. - Right lower lobe lesion needs to be followed up with a CAT scan in 4-6 months without contrast. (2) Tachycardia: With persistent sinus tachycardia which was in the 120s on admission, now low 100s mostly but jumps to 140s with ambulation. ECG with sinus tachycardia and PACs. Suspect this is physiologic response to sepsis and pneumonia. - His baseline HR is 90s-low 100s as per Cardiac Lower School Music Teacher as he was denervated (vagus nerve) during surgery. - Stable on discharge. (3) ARF (acute renal failure): Creatinine 1.4 on admission and jake to 1.6 after admission. - Gave gentle IV fluids and now apron man improved to 1.1 - Baseline creatinine is 1.33 on labs that are scanned in from 10/2018 - At baseline by discharge. (4) Hypertension: BP stable by discharge at 140/95. - Continue home meds -> Follow up outpatient (5) History of heart transplant: In 2007, at [place]. His air conditioning unit tester is Dr. Arian Reyes. Cardiac education program coordinator-direct # is [phone]--> they are comfortable with him staying at [facility] as his condition is improving. - Most recent ECHO at [facility] [place] shows LVEF 60%, mild-mod LVH, mild dilated RV, septal motion abnormality, mod-severe TR, mild MR, TAPSE 1.8 - Continue prednisone, tacrolimus - Check tacrolimus level-within normal limits at 10 (6) Diabetes mellitus: On Lantus and Ozempic at home. Hemoglobin A1c is 7.8% - fairly well controlled. - Continue home regimen (7) Depression: continue home bupropion (8) CKD (chronic kidney disease) stage 3, GFR 30-59 ml/min: Baseline creatinine around 1.33 on outpatient labs scanned in from 10/2017. (9) History of subarachnoid hemorrhage: In the setting of a fall with head trauma several years ago. - No acute issues (10) GERD (gastroesophageal reflux disease): No acute issues -Continue pantoprazole 40 mg twice daily (11) CHF (congestive heart failure): Has a history of severe systolic CHF which was treated with cardiac transplant. - As above (12) Diarrhea: loose stools associated with abx use, now resolved C. diff neg Can use imodium prn (13) DVT prophylaxis: Heparin for DVT proph Total Time Total Time Spent Total Time Spent (In Minutes): 35 Discharge Plan Discharge Items Patient Disposition: Home - Self-Care Reason For Visit: PNA Discharge Diagnosis: Pneumonia Activity: Resume your previous activity Non-emergency contact: Primary Care Provider and Surgeon Call non-emergency contact if: your symptoms worsen and your temperature is above 101 Follow-up/Referrals: Guillermo Vega III, CRNP [Primary Care Provider] - 06/18/19 4:00 pm (If you need to change this appointment, please call [phone].) Diet: Carb Consistent or DM2 and Heart Healthy Addtl Attending Provider Instructions: Mr. Vincent, You were admitted to the hospital with pneumonia. While it is necessary to be on, your immune suppressing medications probably make you more susceptible to infections. We had the pulmonology team see you who feel you are doing well. We are discharging you with a longer course of antibiotics to help fully eliminate the infection from your lungs. We will send another week of antibiotics to your pharmacy. Please take the first doses of your antibiotics tonight before bed, then 2 times per day after that. Please call your transplant team today or tomorrow to get your annual visit. If you can see them sooner than June, that may be a good idea. Please come back to the hospital with more shortness of breath, fevers, cough, or any other concerning symptoms. Pending Studies at Discharge: No Stand-Alone Forms: My [facility] [employer], Smoking Cessation Medications and DC Order Prescriptions: New doxycycline hyclate 100 mg Capsule 100 mg PO BID Qty: 11 RF: 0 amoxicillin-pot clavulanate [Augmentin] 875-125 mg Tablet 1 tab PO BIDM Qty: 11 RF: 0 Continued Lantus Solostar U-100 Insulin 100 unit/mL (3 mL) insulin pen 5 - 10 units subcut DAILY Qty: 90 RF: 1 (DME) OneTouch Ultra Blue Test Strip strip See Rx Instructions .ROUTE .MEDSUPPLY Qty: 400 RF: 1 cholecalciferol (vitamin D3) 2,000 unit tablet 2,000 unit PO DAILY RF: 0 magnesium oxide 400 mg (241.3 mg magnesium) tablet 400 mg PO DAILY RF: 0 pravastatin 20 mg tablet 20 mg PO HS RF: 0 losartan 100 mg tablet 100 mg PO DAILY RF: 0 melatonin 10 mg capsule 10 mg PO HS PRN (Reason: Sleep) RF: 0 multivitamin tablet 1 tab PO DAILY RF: 0 omeprazole 20 mg capsule,delayed release(DR/EC) 20 mg PO BID RF: 0 tacrolimus 0.5 mg capsule 0.5 mg PO .COMPLEX RF: 0 tamsulosin 0.4 mg capsule 0.4 mg PO DAILY RF: 0 Ozempic 0.25 mg or 0.5 mg(2 mg/1.5 mL) pen injector 0.25 mg SQ WEEKLY 90 Days Qty: 6 RF: 1 bupropion HCl [Wellbutrin SR] 100 mg tablet sustained-release 12 hr 100 mg PO DAILY Qty: 90 RF: 1 prednisone 5 mg tablet 5 mg PO DAILY RF: 0 bumetanide 1 mg tablet 1 mg PO BID RF: 0 tadalafil [Cialis] 5 mg tablet 5 mg PO DAILY PRN (Reason: Sexual Activity) RF: 0 terazosin 2 mg capsule 2 mg PO DAILY RF: 0 Discharge Orders: Discharge Order (Routine); Ordered 06/11/19 Ordered By: Kaleb Michaud Admission Data Admit Date/Time: 06/06/19 19:13 Attending Provider: Kaleb Michaud Admit Provider: Belle King Primary Care Provider: Guillermo eVga III Other Providers: Trish Wright ; Tree Kc ; Mary Ramírez ; Kaleb Michaud Other Interventions: Discharge Summary Assessment (RN) Last Done: 06/11/19 13:58 DC Date/Time DO NOT enter until pt leaves facility: 06/11/19 15:28 Coding Level of Care Code D/C Day Management >30 mins Diagnoses Pneumonia J18.9 Laterality: bilateral Lung location: unspecified part of lung Pneumonia type: due to unspecified organism Tachycardia R00.0 ARF (acute renal failure) N17.9 Hypertension I10 Hypertension type: essential hypertension History of heart transplant Z94.1 Diabetes mellitus E11.9; Z79.4 Diabetes mellitus type: type 2 Diabetes mellitus fdc insulin use: with fdc use Diabetes mellitus complication status: without complication Depression F32.9 Depression Type: unspecified CKD (chronic kidney disease) stage 3, GFR 30-59 ml/min N18.3 History of subarachnoid hemorrhage Z86.79 GERD (gastroesophageal reflux disease) K21.9 Esophagitis presence: without esophagitis CHF (congestive heart failure) I50.9 Heart failure type: unspecified Heart failure chronicity: unspecified Diarrhea R19.7 DVT prophylaxis Z29.9
== END 2019-06-11 15:28 | disposition home or self-care (01) | DRG 871 ==
LOC: ED 13:43 → SUATTDRO 19:13 → 2N 19:13

== ENCOUNTER 2022-01-28 17:59 | Inpatient (IN) ==
[2022-01-28 18:52] LABS: Appearance Urine Clear (Clear); Bacteria Urine Automated Negative (Negative); Bilirubin Urine Negative (Negative); Blood Urine Negative (Negative); Color Urine Dark Yellow; Glucose Urine UA Negative (Negative); Ketones Urine Trace (Negative); Leukocyte Esterase Urine Trace (Negative); Nitrite Urine Negative (Negative); Protein Urine 2+ (Negative); RBC Urine Automated 0-4 /hpf (0-4); Specific Gravity Urine 1.026 (1.000-1.030); Urobilinogen Urine Negative (Negative); pH Urine 5.5 (4.5-7.5)
[2022-01-28 18:54] LABS: Basophils # (auto) 0.01 K/uL (0-0.2); Basophils % (auto) 0.1 %; Eosinophils # (auto) 0.04 K/uL (0-0.50); Eosinophils % (auto) 0.3 %; Hemoglobin 15.3 g/dl (14.0-18.0); Immature Granulocytes # (auto) 0.04 K/uL (0.00-0.02); Immature Granulocytes % (auto) 0.3 %; Lymphocytes % (auto) 9.1 %; Mean Corpuscular Hemoglobin 28.8 pg (25.0-34.0); Mean Corpuscular Hgb Conc 32.6 g/dL (32.0-36.0); Mean Corpuscular Volume 88.3 fL (80.0-100.0); Monocytes # (auto) 1.61 K/uL (0.24-0.82); Monocytes % (auto) 12.2 %; Neutrophils # (auto) 10.34 K/uL (1.4-6.5); Platelet Count 258 K/uL (130-400); RDW Coefficient of Variation 14.5 % (11.5-14.5); Red Blood Count 5.32 M/uL (4.63-6.08); White Blood Count 13.24 K/ul (4.8-10.8)
[2022-01-28 19:21] LABS: Albumin Globulin Ratio 1.5 (0.9-2); Albumin Level 4.3 gm/dl (3.4-5.0); BUN Creatinine Ratio 21.4 (10-20); Bilirubin,Total 1.6 mg/dl (0.2-1.0); Calcium 9.5 mg/dl (8.5-10.1); Est GFR (African American) 62.2 ml/min; Est GFR (Non-African American) 53.6 ml/min; Globulin 2.8 gm/dl (2.5-4.0); Potassium 4.2 mmol/L (3.5-5.1); Total Protein 7.1 gm/dl (6.0-8.3)
[2022-01-28] MEDS ORDERED: SODIUM CHLORIDE 0.9% 1000ML 1,000 ML IV SCH (21:00)
--- NOTE | 2022-01-28 21:02 | Emergency Department Note ---
History of Present Illness General Chief complaint: Urinary Symptoms Stated complaint: URGENCY PEE, TROUBLE PEEING, COUGHING Time Seen by Provider: 01/28/22 20:35 Source: patient Mode of arrival: ambulatory Limitations: no limitations History of Present Illness Provider complaint: Difficulty urinating, fatigue, coughing Onset (ago): day(s) 3 Maximum Pain Intensity: 9 This is a 71-year-old male presents emergency department with multiple complaints that he states of been evolving over the last 3 to 4 days. Patient states while [place] with [place] , he began feeling myalgias, arthralgias, fatigue, and developed diarrhea. He states he took pepto bismal and the diarrhea stopped. He hasn't yet had a normal bowel movement. He states in in this interim he is also noted difficulty urinating. He states he gets a sense of urgency, however when he goes to the bathroom, is unable to urinate at all. Believes its been several days since he last urinated normally. He states he typically takes a prostate medication at night, however he forgot to bring it along on this recent trip and so he has not had his prostate medication in 3 to 4 days. He does have remote history of bladder cancer back in 1994. He states has been several years since he seen his urologist locally. Patient also takes several medications due to a prior history of a heart transplant back in 2007. He states he does still get yearly checkups at [facility] where this was performed. Home Medications Medication Instructions Recorded Confirmed Type losartan 100 mg tablet 100 mg PO QAM 10/17/18 01/29/22 History magnesium oxide 400 mg (241.3 mg 400 mg PO BID 10/17/18 01/29/22 History magnesium) tablet pravastatin 20 mg tablet 20 mg PO HS 10/17/18 01/29/22 History multivitamin 1 tab PO DAILY 11/07/18 01/29/22 History omeprazole 20 mg capsule,delayed 20 mg PO BID 11/07/18 01/29/22 History release tacrolimus 0.5 mg capsule, 1 mg PO QAM 11/07/18 01/29/22 History immediate-release tamsulosin 0.4 mg capsule 0.4 mg PO QPM 05/10/19 01/29/22 History terazosin 2 mg capsule 2 mg PO HS 06/08/19 01/29/22 History bumetanide 1 mg tablet 1 mg PO BID 03/12/20 01/29/22 History insulin glargine 100 unit/mL (3 5 - 10 unit subcut DAILY PRN HIGH 09/17/20 01/29/22 History mL) subcutaneous pen (Lantus BLOOD SUGAR Solostar U-100 Insulin) prednisone 5 mg tablet 5 mg PO QAM 09/17/20 01/29/22 History calcium carbonate 600 mg calcium 600 mg PO BID 06/09/21 01/29/22 History (1,500 mg) tablet (Calcium) bupropion HCl 100 mg tablet,12 hr 100 mg PO BID #180 ea 10/19/21 01/29/22 Rx sustained-release (Wellbutrin SR) semaglutide 0.25 mg or 0.5 mg (2 0.5 mg (0.4 mL) subcut WEEKLY 90 10/27/21 01/29/22 Rx mg/1.5 mL) subcutaneous pen days #36 mL injector (Ozempic) cyanocobalamin (vitamin B-12) 1,000 mcg PO DAILY 01/29/22 01/29/22 History 1,000 mcg tablet (Vitamin B-12) tacrolimus 0.5 mg capsule, 0.5 mg PO QPM 01/29/22 01/29/22 History immediate-release Allergies Allergy/AdvReac Type Severity Reaction Status Date / Time naproxen Allergy Unknown BROKE OUT Verified 01/29/22 00:56 IN A SWEAT shellfish derived Allergy Unknown HIVES Verified 01/29/22 00:56 oxycodone AdvReac Unknown HALLUCINATI Verified 01/29/22 00:56 ONS Past Med/Surg History Medical History Basosquamous carcinoma of skin HX Bladder cancer (1994) 1989'S / HX SURGERY AND CHEMO CHF (congestive heart failure) s/p heart transplant CKD (chronic kidney disease) stage 3, GFR 30-59 ml/min PT DENIES BEING AWARE OF ANY KIDNEY DISEASE Depression Diabetes mellitus Fluid retention ANKLES, MED CONTROLS GERD (gastroesophageal reflux disease) Hearing difficulty Hypercholesteremia Hypertension Intracranial hemorrhage PER PT HX FALL FEW YRS AGO, FELL ON ICE - BLOOD ON BRAIN AND IT GOT ABSORBED Ischemic cardiomyopathy resolved s/p heart transplant Pneumonia 05/2019 - has since resolved RBBB (right bundle branch block) resolved s/p heart transplant Status post heart transplant (2007) HX 2008 Tubular adenoma of colon ? Surgical History History of bladder surgery (1994) History of heart transplant (2007) [facility] History of Mohs micrographic surgery for skin cancer (02/26/20) Facial / Left Tragus History of umbilical hernia repair (2011) S/P LASIK (laser assisted in situ keratomileusis) of both eyes S/P left cataract extraction 06/17/21 Family History Father , Passed age 82 of "heart" Squamous cell cancer of skin of crown Mother , Passed age 82 of unknown No problems noted. Sister No problems noted. Sister No problems noted. Son No problems noted. Daughter No problems noted. Other Family history of diabetes mellitus in father Denies family history of Colon cancer Ovarian cancer Prostate cancer Myocardial infarction Breast cancer Social History Smoking Status: Never smoker Tobacco Type: Cigarettes and Pipe Age Started Using Tobacco: 18; Age Quit Using Tobacco: 28; packs per day: 0.5; Years Smoked: 10; Cigarettes Per Day: .; Number of Years Since Quit: 42; Second Hand Exposure: No; Hx Alcohol Use: Yes Alcohol type: wine Alcohol Intake Frequency: 4 or More x per/Week Hx Substance Use: No Preferred Language: Frisian Communication Ability: Effective Visual Impairment: No Limitations Hearing Ability: Normal Information Systems Administrator Required: No Beliefs That Will Affect Care: None marital status: Current Living Situation: Spouse current occupational status: retired current occupation: Retired [employer] Feels Safe at Home: Yes Childhood Exposure to Second-Hand Smoke: No caffeine: Yes (1.5 cups of coffee/day ) during the past year weight has: remained stable Dental Care, Regularly: Yes Physical Activity Frequency: Does not Exercise Seatbelt Use: always Sunscreen Use: Yes Assistive Devices: None Review of Systems A total of 10 systems reviewed and were otherwise negative All systems reviewed & are unremarkable except as noted in HPI & below Physical Exam Vital Signs Vital Signs - 24 hr 01/28/22 18:14 01/28/22 21:13 01/28/22 23:00 Temperature 36.4 C L Temperature Source Temporal Artery Scan Pulse Rate 112 H Pulse Rate [Apical] 109 H 101 H Pulse Rhythm [Apical] Regular Irregular Pulse Strength [Apical] Normal Normal Respiratory Rate 18 20 18 Respiratory Effort / Characteristics Non-Labored Non-Labored Non-Labored Respiratory Depth Normal Normal Normal Respiratory Pattern Regular Regular Regular Blood Pressure 141/97 H Blood Pressure [Right Arm] 154/109 H 144/114 H Blood Pressure Mean 111 Blood Pressure Mean [Right Arm] 124 124 Blood Pressure Position [Right Arm] Lying Pulse Oximetry 96 95 97 Oxygen Delivery Method Room Air Room Air Room Air Sepsis Recent Fever Within 48 Hours No Sepsis New/Unexplained Change in Mental Status N/A Sepsis Action Taken by Nursing No Action Required GENERAL: alert, unwell appearing, well nourished, no distress, non-toxic EYE EXAM: normal conjunctiva, PERRL and EOM's grossly intact OROPHARYNX: no exudate, no erythema, lips, buccal mucosa, and tongue normal and mucous membranes are moist NECK: supple, no nuchal rigidity, no adenopathy, non-tender LUNGS: Clear but decreased to auscultation. Normal chest wall mechanics, no w/r/r, frequent cough noted during exam HEART: no murmurs, S1 normal and S2 normal ABDOMEN: abdomen soft, non-tender, normo-active bowel sounds, no masses, no rebound or guarding. BACK: Back is symmetrical on inspection and there is no deformity, no midline tenderness, no CVA tenderness. SKIN: no rashes and no bruising UPPER EXTREMITIES: upper extremities are grossly normal. FROM, nml pulses b/l. LOWER EXTREMITIES: No pitting edema. FROM, nml pulses b/l. NEURO EXAM: Normal sensorium, cranial nerves II-XII grossly intact, normal speech, no gross weakness of arms, no gross weakness of legs. Gross sensation intact. Course Course 2219: Patient and updated on results thus far. Given recent long car ride and no ongoing use of anticoagulation, will send patient for CT angiography of the chest. 2339: Patient and updated on results. 0005: Discussed with Dr. Reyes, cardiology, [facility]. They are happy to accept for transfer however have no available beds currently. They recommend diuresis with bumex as patient takes this daily and antibiotic coverage for likely CAP. They request echo in the morning. 0025: Discussed with Dr. Carreno per hospitalist request. Administered Medications Discontinued Medications Bumetanide (Bumetanide 1 Mg Tab) 1 mg PO BID17 MICK Stop: 02/28/22 08:59 Last Admin: 01/29/22 07:58 Dose: 1 mg Documented By: KYMBERLY Bupropion HCl (Bupropion Sr 100 Mg Tabcr) 100 mg PO BID MICK Stop: 02/28/22 08:59 Last Admin: 01/29/22 20:26 Dose: 100 mg Documented By: Admin: 01/29/22 07:58 Dose: 100 mg Documented By: KYMBERLY Furosemide (Furosemide 40 Mg/4 Ml Vial) 40 mg IV ONE ONE Stop: 01/28/22 23:43 Last Admin: 01/29/22 01:56 Dose: Not Given Documented By: ÁLVARO Sodium Chloride (Nss 1000ml) 1,000 mls @ 125 mls/hr IV .Q8H MICK Stop: 02/27/22 20:59 Last Infusion: 01/29/22 03:30 Dose: 0 mls/hr Documented By: Admin: 01/28/22 21:00 Dose: 125 mls/hr Documented By: ÁLVARO Cefepime HCl (Maxipime) 2,000 mg in 20 mls @ 5 mls/min IV NOW STA; Protocol Stop: 01/28/22 23:45 Last Admin: 01/28/22 23:59 Dose: 5 mls/min Documented By: ÁLVARO Bumetanide 4 mg/ Syringe 16 mls @ 4 mls/min IV ONE ONE Stop: 01/29/22 00:15 Last Admin: 01/29/22 02:35 Dose: 4 mls/min Documented By: ÁLVARO Doxycycline Hyclate 100 mg/ (Dextrose) 110 mls @ 50 mls/hr IV Q12H MICK Stop: 02/05/22 03:59 Last Infusion: 01/29/22 18:19 Dose: 0 mls/hr Documented By: Admin: 01/29/22 16:00 Dose: 50 mls/hr Documented By: Infusion: 01/29/22 06:20 Dose: 0 mls/hr Documented By: Admin: 01/29/22 04:07 Dose: 50 mls/hr Documented By: LUIS Bumetanide 1 mg/ Syringe 4 mls @ 4 mls/min IV BID@0900,1700 MICK Stop: 02/28/22 16:59 Last Admin: 01/29/22 17:16 Dose: 4 mls/min Documented By: KYMBERLY Hydrocortisone Sodium (Succinate 50 mg/ Syringe) 1 mls @ 4 mls/min IV Q8H MCIK Stop: 01/31/22 12:44 Last Admin: 01/29/22 20:26 Dose: 4 mls/min Documented By: Admin: 01/29/22 13:51 Dose: 4 mls/min Documented By: KYMBERLY Cefepime HCl 2,000 mg/ Syringe 20 mls @ 5 mls/min IV Q8 MICK; Protocol Stop: 02/05/22 13:59 Last Admin: 01/29/22 21:56 Dose: 5 mls/min Documented By: Admin: 01/29/22 13:51 Dose: 5 mls/min Documented By: KYMBERLY Insulin Aspart (Insulin Aspart Per Unit) 0 units SC ACHS [facility] Stop: 02/28/22 07:29 Last Admin: 01/29/22 21:29 Dose: Not Given Documented By: Admin: 01/29/22 17:15 Dose: Not Given Documented By: Admin: 01/29/22 11:56 Dose: Not Given Documented By: Admin: 01/29/22 08:32 Dose: Not Given Documented By: KYMBERLY Insulin Glargine (Lantus Per Unit Charge) 5 units SQ NOW ONE; Protocol Stop: 01/29/22 09:16 Last Admin: 01/29/22 10:37 Dose: 5 units Documented By: KYMBERLY Co-signed By: GORGE Insulin Glargine (Lantus Per Unit Charge) 0 units SQ [facility]; Protocol Stop: 02/28/22 20:59 Last Admin: 01/29/22 21:29 Dose: Not Given Documented By: LUIS Ioversol (Ioversol 350 Mg 100ml Prefilled Syringe) 93 ml IV ONCE ONE Stop: 01/28/22 22:21 Last Admin: 01/28/22 22:21 Dose: 93 ml Documented By: RADHA Ioversol (Optiray 300 500ml) 110 ml IV ONCE ONE Stop: 01/28/22 22:54 Last Admin: 01/28/22 22:54 Dose: 110 ml Documented By: ELICIA Losartan Potassium (Losartan Potassium 50 Mg Tab) 100 mg PO QAM [facility] Stop: 02/28/22 08:59 Last Admin: 01/29/22 07:59 Dose: 100 mg Documented By: KYMBERLY Magnesium Oxide (Magnesium Oxide 400 Mg Tab) 400 mg PO NOW STA Stop: 01/29/22 00:41 Last Admin: 01/29/22 02:12 Dose: 400 mg Documented By: ÁLVARO Magnesium Oxide (Magnesium Oxide 400 Mg Tab) 400 mg PO BID MICK Stop: 02/28/22 08:59 Last Admin: 01/29/22 20:26 Dose: 400 mg Documented By: Admin: 01/29/22 07:59 Dose: 400 mg Documented By: KYMBERLY Nitroglycerin (Nitroglycerin 2% Ointment 30gm Tube) 1 inch EXT NOW ONE Stop: 01/29/22 03:31 Last Admin: 01/29/22 04:08 Dose: 1 inch Documented By: LUIS Pantoprazole Sodium (Pantoprazole 40 Mg Tab) 40 mg PO BID MICK Stop: 02/28/22 08:59 Last Admin: 01/29/22 20:33 Dose: 40 mg Documented By: Admin: 01/29/22 07:59 Dose: 40 mg Documented By: KYMBERLY Pravastatin Sodium (Pravastatin Sod 20 Mg Tab) 20 mg PO HS [facility] Stop: 02/28/22 20:59 Last Admin: 01/29/22 20:34 Dose: 20 mg Documented By: LUIS Prednisone (Prednisone 5 Mg Tab) 5 mg PO QAM [facility] Stop: 02/28/22 08:59 Last Admin: 01/29/22 07:58 Dose: 5 mg Documented By: KYMBERLY Sacubitril/Valsartan (Valsartan/Sacubitril 26/24mg Tab) 1 tab PO BID MICK Stop: 02/28/22 20:59 Last Admin: 01/29/22 20:34 Dose: 1 tab Documented By: LUIS Tacrolimus (Tacrolimus 0.5 Mg Cap) 0.5 mg PO QPM MICK Stop: 02/28/22 20:59 Last Admin: 01/29/22 20:34 Dose: 0.5 mg Documented By: LUIS Tacrolimus (Tacrolimus 1 Mg Cap) 1 mg PO QAM MICK Stop: 02/28/22 08:59 Last Admin: 01/29/22 07:59 Dose: 1 mg Documented By: KYMBERLY Tamsulosin HCl (Tamsulosin Hcl 0.4 Mg Cap) 0.4 mg PO NOW ONE Stop: 01/29/22 00:41 Last Admin: 01/29/22 02:12 Dose: 0.4 mg Documented By: ÁLVARO Tamsulosin HCl (Tamsulosin Hcl 0.4 Mg Cap) 0.4 mg PO QPM MICK Stop: 02/28/22 20:59 Last Admin: 01/29/22 20:34 Dose: 0.4 mg Documented By: LUIS Terazosin HCl (Terazosin Hcl 1 Mg Cap) 2 mg PO NOW ONE Stop: 01/29/22 00:41 Last Admin: 01/29/22 02:12 Dose: 2 mg Documented By: ÁLVARO Terazosin HCl (Terazosin Hcl 1 Mg Cap) 2 mg PO HS MICK Stop: 02/28/22 20:59 Last Admin: 01/29/22 20:34 Dose: 2 mg Documented By: LUIS Critical Care Time Critical Care Time: Yes Total Critical Care Time: 40 Critical care of 40 min performed to assess and manage high likelihood of life- threatening dyspnea, involving labs and imaging performed with assessment to evaluate CHF and PNA diagnosis in the setting of prior heart transplant with frequent reassessment. This time includes bedside time, treatment discussions with patient/family/consultants, documentation time and excludes procedure time. Medical Decision Making Differential Diagnosis Differential Diagnosis includes but is not limited to dehydration, stroke, anemia, hypoglycemia, hyponatremia, hypernatremia, urinary tract infection, pneumonia, bronchitis, sepsis, gastroenteritis, additional abdominal pathology, metabolic abnormalities and infections. Medical Records Attestation: I reviewed the patient's medical records. Home Medications Current Medication List: was personally reviewed by me Laboratory Data Attestation: I reviewed the patient's lab results. Result diagrams: 01/29/22 07:53 01/29/22 07:53 Lab Results 01/28/22 01/28/22 01/28/22 Range/Units 18:18 18:44 18:44 WBC 13.24 H (4.8-10.8) K/ul RBC 5.32 (4.63-6.08) M/uL Hgb 15.3 (14.0-18.0) g/dl Hct 47.0 (40.1-51.0) % MCV 88.3 (80.0-100.0) fL MCH 28.8 (25.0-34.0) pg MCHC 32.6 (32.0-36.0) g/dL RDW Std Deviation 46.0 (36.4-46.3) fL RDW Coeff of Miranda 14.5 (11.5-14.5) % Plt Count 258 (130-400) K/uL MPV 10.0 (9.4-12.4) fL Immature Gran % (Auto) 0.3 % Neut % (Auto) 78.0 % Lymph % (Auto) 9.1 % [place] % (Auto) 12.2 % Eos % (Auto) 0.3 % Baso % (Auto) 0.1 % Neut # (Auto) 10.34 H (1.4-6.5) K/uL Lymph # (Auto) 1.20 (1.2-3.4) K/uL [place] # (Auto) 1.61 H (0.24-0.82) K/uL Eos # (Auto) 0.04 (0-0.50) K/uL Baso # (Auto) 0.01 (0-0.2) K/uL Immature Gran # (Auto) 0.04 H (0.00-0.02) K/uL Sodium 139 (136-145) mmol/L Potassium 4.2 (3.5-5.1) mmol/L Chloride 104 (98-107) mmol/L Carbon Dioxide 24 (21-32) mmol/L Anion Gap 11 (3-11) BUN 28 H (6-23) mg/dl Creatinine 1.31 (0.6-1.4) mg/dl Est Cr Clr Drug Dosing 58.0 ml/min Est GFR ( Amer) 62.2 ml/min Est GFR (Non-Af Amer) 53.6 ml/min BUN/Creatinine Ratio 21.4 H (10-20) Glucose 138 H (70-99(Fasting)) mg/dl Calcium 9.5 (8.5-10.1) mg/dl Magnesium (1.7-2.4) mg/dl Total Bilirubin 1.6 H (0.2-1.0) mg/dl AST 43 H (13-39) U/L ALT 33 (7-52) U/L Alkaline Phosphatase 194 H (34-104) U/L Troponin I High Sens (0-20) pg/ml B-Natriuretic Peptide (0-100) pg/ml Total Protein 7.1 (6.0-8.3) gm/dl Albumin 4.3 (3.4-5.0) gm/dl Globulin 2.8 (2.5-4.0) gm/dl Albumin/Globulin Ratio 1.5 (0.9-2) Lipase 13 (11-82) U/L Urine Color Dark Yellow Urine Appearance Clear (Clear) Urine pH 5.5 (4.5-7.5) Ur Specific [place] 1.026 (1.000-1.030) Urine Protein 2+ H (Negative) Urine Glucose (UA) Negative (Negative) Urine Ketones Trace H (Negative) Urine Blood Negative (Negative) Urine Nitrite Negative (Negative) Urine Bilirubin Negative (Negative) Urine Urobilinogen Negative (Negative) Ur Leukocyte Esterase Trace H (Negative) Urine WBC (Auto) 1-5 (0-5) /hpf Urine RBC (Auto) 0-4 (0-4) /hpf U Hyaline Cast (Auto) 1-5 (0-5) /lpf U Epithel Cells (Auto) 10-20 H (0-5) /lpf Urine Bacteria (Auto) Negative (Negative) Adenovirus (PCR) (NotDetected) B. pertussis DNA (PCR) (NotDetected) B.parapertussis DNA PCR (NotDetected) C. pneumoniae DNA (PCR) (NotDetected) Coronavirus OC43 (PCR) (NotDetected) Coronavirus HKU1 (PCR) (NotDetected) Coronavirus 229E (PCR) (NotDetected) SARS-CoV-2 (PCR) (NotDetected) Coronavirus NL63 (PCR) (NotDetected) Human Metapneumovir PCR (NotDetected) Influenza Type A (PCR) (NotDetected) Influenza Type B (PCR) (NotDetected) M. pneumoniae (PCR) (NotDetected) Parainfluenza 1 (PCR) (NotDetected) Parainfluenza 2 (PCR) (NotDetected) Parainfluenza 3 (PCR) (NotDetected) Parainfluenza 4 (PCR) (NotDetected) RSV (PCR) (NotDetected) Entero/Rhino (PCR) (NotDetected) 01/28/22 01/28/22 01/28/22 Range/Units 18:44 18:44 21:03 WBC (4.8-10.8) K/ul RBC (4.63-6.08) M/uL Hgb (14.0-18.0) g/dl Hct (40.1-51.0) % MCV (80.0-100.0) fL MCH (25.0-34.0) pg MCHC (32.0-36.0) g/dL RDW Std Deviation (36.4-46.3) fL RDW Coeff of Miranda (11.5-14.5) % Plt Count (130-400) K/uL MPV (9.4-12.4) fL Immature Gran % (Auto) % Neut % (Auto) % Lymph % (Auto) % [place] % (Auto) % Eos % (Auto) % Baso % (Auto) % Neut # (Auto) (1.4-6.5) K/uL Lymph # (Auto) (1.2-3.4) K/uL [place] # (Auto) (0.24-0.82) K/uL Eos # (Auto) (0-0.50) K/uL Baso # (Auto) (0-0.2) K/uL Immature Gran # (Auto) (0.00-0.02) K/uL Sodium (136-145) mmol/L Potassium (3.5-5.1) mmol/L Chloride (98-107) mmol/L Carbon Dioxide (21-32) mmol/L Anion Gap (3-11) BUN (6-23) mg/dl Creatinine (0.6-1.4) mg/dl Est Cr Clr Drug Dosing ml/min Est GFR ( Amer) ml/min Est GFR (Non-Af Amer) ml/min BUN/Creatinine Ratio (10-20) Glucose (70-99(Fasting)) mg/dl Calcium (8.5-10.1) mg/dl Magnesium 2.2 (1.7-2.4) mg/dl Total Bilirubin (0.2-1.0) mg/dl AST (13-39) U/L ALT (7-52) U/L Alkaline Phosphatase (34-104) U/L Troponin I High Sens 16.1 (0-20) pg/ml B-Natriuretic Peptide (0-100) pg/ml Total Protein (6.0-8.3) gm/dl Albumin (3.4-5.0) gm/dl Globulin (2.5-4.0) gm/dl Albumin/Globulin Ratio (0.9-2) Lipase (11-82) U/L Urine Color Urine Appearance (Clear) Urine pH (4.5-7.5) Ur Specific [place] (1.000-1.030) Urine Protein (Negative) Urine Glucose (UA) (Negative) Urine Ketones (Negative) Urine Blood (Negative) Urine Nitrite (Negative) Urine Bilirubin (Negative) Urine Urobilinogen (Negative) Ur Leukocyte Esterase (Negative) Urine WBC (Auto) (0-5) /hpf Urine RBC (Auto) (0-4) /hpf U Hyaline Cast (Auto) (0-5) /lpf U Epithel Cells (Auto) (0-5) /lpf Urine Bacteria (Auto) (Negative) Adenovirus (PCR) Not Detected (NotDetected) B. pertussis DNA (PCR) Not Detected (NotDetected) B.parapertussis DNA PCR Not Detected (NotDetected) C. pneumoniae DNA (PCR) Not Detected (NotDetected) Coronavirus OC43 (PCR) Not Detected (NotDetected) Coronavirus HKU1 (PCR) Not Detected (NotDetected) Coronavirus 229E (PCR) Not Detected (NotDetected) SARS-CoV-2 (PCR) Not Detected (NotDetected) Coronavirus NL63 (PCR) Not Detected (NotDetected) Human Metapneumovir PCR Not Detected (NotDetected) Influenza Type A (PCR) Not Detected (NotDetected) Influenza Type B (PCR) Not Detected (NotDetected) M. pneumoniae (PCR) Not Detected (NotDetected) Parainfluenza 1 (PCR) Not Detected (NotDetected) Parainfluenza 2 (PCR) Not Detected (NotDetected) Parainfluenza 3 (PCR) Not Detected (NotDetected) Parainfluenza 4 (PCR) Not Detected (NotDetected) RSV (PCR) Not Detected (NotDetected) Entero/Rhino (PCR) Not Detected (NotDetected) 01/28/22 Range/Units 22:56 WBC (4.8-10.8) K/ul RBC (4.63-6.08) M/uL Hgb (14.0-18.0) g/dl Hct (40.1-51.0) % MCV (80.0-100.0) fL MCH (25.0-34.0) pg MCHC (32.0-36.0) g/dL RDW Std Deviation (36.4-46.3) fL RDW Coeff of Miranda (11.5-14.5) % Plt Count (130-400) K/uL MPV (9.4-12.4) fL Immature Gran % (Auto) % Neut % (Auto) % Lymph % (Auto) % [place] % (Auto) % Eos % (Auto) % Baso % (Auto) % Neut # (Auto) (1.4-6.5) K/uL Lymph # (Auto) (1.2-3.4) K/uL [place] # (Auto) (0.24-0.82) K/uL Eos # (Auto) (0-0.50) K/uL Baso # (Auto) (0-0.2) K/uL Immature Gran # (Auto) (0.00-0.02) K/uL Sodium (136-145) mmol/L Potassium (3.5-5.1) mmol/L Chloride (98-107) mmol/L Carbon Dioxide (21-32) mmol/L Anion Gap (3-11) BUN (6-23) mg/dl Creatinine (0.6-1.4) mg/dl Est Cr Clr Drug Dosing ml/min Est GFR ( Amer) ml/min Est GFR (Non-Af Amer) ml/min BUN/Creatinine Ratio (10-20) Glucose (70-99(Fasting)) mg/dl Calcium (8.5-10.1) mg/dl Magnesium (1.7-2.4) mg/dl Total Bilirubin (0.2-1.0) mg/dl AST (13-39) U/L ALT (7-52) U/L Alkaline Phosphatase (34-104) U/L Troponin I High Sens (0-20) pg/ml B-Natriuretic Peptide 713 H (0-100) pg/ml Total Protein (6.0-8.3) gm/dl Albumin (3.4-5.0) gm/dl Globulin (2.5-4.0) gm/dl Albumin/Globulin Ratio (0.9-2) Lipase (11-82) U/L Urine Color Urine Appearance (Clear) Urine pH (4.5-7.5) Ur Specific [place] (1.000-1.030) Urine Protein (Negative) Urine Glucose (UA) (Negative) Urine Ketones (Negative) Urine Blood (Negative) Urine Nitrite (Negative) Urine Bilirubin (Negative) Urine Urobilinogen (Negative) Ur Leukocyte Esterase (Negative) Urine WBC (Auto) (0-5) /hpf Urine RBC (Auto) (0-4) /hpf U Hyaline Cast (Auto) (0-5) /lpf U Epithel Cells (Auto) (0-5) /lpf Urine Bacteria (Auto) (Negative) Adenovirus (PCR) (NotDetected) B. pertussis DNA (PCR) (NotDetected) B.parapertussis DNA PCR (NotDetected) C. pneumoniae DNA (PCR) (NotDetected) Coronavirus OC43 (PCR) (NotDetected) Coronavirus HKU1 (PCR) (NotDetected) Coronavirus 229E (PCR) (NotDetected) SARS-CoV-2 (PCR) (NotDetected) Coronavirus NL63 (PCR) (NotDetected) Human Metapneumovir PCR (NotDetected) Influenza Type A (PCR) (NotDetected) Influenza Type B (PCR) (NotDetected) M. pneumoniae (PCR) (NotDetected) Parainfluenza 1 (PCR) (NotDetected) Parainfluenza 2 (PCR) (NotDetected) Parainfluenza 3 (PCR) (NotDetected) Parainfluenza 4 (PCR) (NotDetected) RSV (PCR) (NotDetected) Entero/Rhino (PCR) (NotDetected) Imaging Data Radiologist's Impression: CT abdomen and pelvis without contrast: Comparison to May 16, 2014. There is trace left and small right pleural effusions layering up to 3.9 cm thick on the right. There is a trace amount of bibasilar atelectasis and/or infiltrate as well as moderate cardiomegaly. Slight perinephric stranding is present which is nonspecific but can be associated with renal insufficiency. No hydronephrosis or ureterolithiasis is seen involving either kidney. There is a 2.9 cm simple cyst on the left. No follow-up is necessary. There is a small amount of free fluid within the abdomen adjacent to the liver and within the pelvis. This is nonspecific. Consider CHF. Bowel loops are nondilated. The appendix is not visible. No pneumoperitoneum or acute focal inflammatory process is seen. The liver, gallbladder, pancreas, spleen, and adrenal glands are unremarkable. The aorta is mildly calcified but nondilated. The urinary bladder is partially distended but unremarkable. Mild to moderate multilevel degenerative changes are seen throughout the spine. No acute fracture or subluxation is seen. Radiologist: Bernabe Rios MD CTA chest: The pulmonary arterial tree is suboptimally opacified with contrast. No large central emboli are visible. The distal lower lobe branches are not well evaluated. No pulmonary embolism is identified. The thoracic aorta is nondilated. There is no aneurysm or dissection. Moderate cardiomegaly with probable mild CHF. No pericardial effusion is seen. There are collateral veins over the thorax due to chronically occluded left brachiocephalic vein. There is a 3.5 cm area of patchy airspace infiltrate in the left lower lobe suspicious for pneumonia. There are small bilateral pleural effusions measuring up to 4.5 cm in the right with mild bibasilar atelectasis. No pneumothorax is seen. Mild to moderate osteophytosis throughout the thoracic spine. No acute fracture or subluxation is seen. Radiologist: Bernabe Rios MD ECG Data Attestation: I personally reviewed and interpreted this ECG as follows: Indication: + SOB/dyspnea Rate (beats per minute): 111 Rhythm: + sinus tachycardia ECG Intervals/blocks: + Right Bundle branch block and + Prolonged QT ECG [place]: + Normal ECG ST segments: + Nonspecific ST abnormalities MDM Narrative An order was placed for continuous cardiac monitoring. The monitor shows a rate of _98_ with _normal sinus__ rhythm. This is a 71-year-old male with complicated past medical history who presents due to concern for fatigue, difficulty urinating, as well as evolving cough. Initial concern based on patient and family members description of evolving symptoms was for that of possible viral URI or pneumonia. Upon additional discussion, concern for CHF given patient's transplant history. Labs drawn and sent, chest x-ray and EKG performed. Chest x-ray with likely evolving pulmonary edema and cardiomegaly noted. Initial labs reassuring however BNP ultimately resulted markedly elevated. Due to reported recent travel and prolonged immobility, patient sent for CT imaging also. No PE noted on CT. Patient noted to have CHF and left lower lobe pneumonia. Nasal swab negative. Due to tra nsplant status, case discussed with cardiology at [facility]. They had no bed availability at that time to except the patient in transfer and recommended IV diuresis, IV antibiotics, and echo in the morning and they will reevaluate their bed status following that. Patient and made aware of all results, verbalized understanding were in agreement with plan. Case discussed with on-call hospitalist who requested cardiology consultation. Impression & Plan Dyspnea, Status post heart transplant, CHF (congestive heart failure), Urinary urgency Discharge Plan Visit Data Chief Complaint: Urinary Symptoms Stated Complaint: URGENCY PEE, TROUBLE PEEING, COUGHING ED Provider: Janey Callahan Discharge Problem: Dyspnea, Status post heart transplant, CHF (congestive heart failure), Urinary urgency Patient Disposition: Admitted As Inpatient Discharge Instructions Interventions: ED Discharge Assessment Last Done: 01/29/22 03:03
[2022-01-28 22:12] LABS: Adenovirus PCR Not Detected (NotDetected); Bordetella parapertussis PCR Not Detected (NotDetected); Bordetella pertussis PCR Not Detected (NotDetected); Chlamydia pneumoniae PCR Not Detected (NotDetected); Coronavirus 229E PCR Not Detected (NotDetected); Coronavirus CoV-2 (COVID19)PCR Not Detected (NotDetected); Coronavirus HKU1 PCR Not Detected (NotDetected); Coronavirus NL63 PCR Not Detected (NotDetected); Coronavirus OC43PCR Not Detected (NotDetected); Human Metapneumovirus PCR Not Detected (NotDetected); Influenza A PCR Not Detected (NotDetected); Influenza B PCR Not Detected (NotDetected); Mycoplasma pneumoniae PCR Not Detected (NotDetected); Parainfluenza Virus 1 PCR Not Detected (NotDetected); Parainfluenza Virus 2 PCR Not Detected (NotDetected); Parainfluenza Virus 3 PCR Not Detected (NotDetected); Parainfluenza Virus 4 PCR Not Detected (NotDetected); Respiratory Syncytial VirusPCR Not Detected (NotDetected); Rhinovirus/Enterovirus PCR Not Detected (NotDetected)
[2022-01-28] MEDS ORDERED: IOVERSOL 350 MG 100mL Prefilled Syringe IV ONE (22:20)
[2022-01-28] MEDS ORDERED: OPTIRAY 300 500mL IV ONE (22:53)
[2022-01-28] MEDS ORDERED: CEFEPIME 2,000 MG/20 ML VIAL IV STA (23:42)
[2022-01-28] MEDS ORDERED: FUROSEMIDE 40 MG/4 ML VIAL IV ONE (23:42)
[2022-01-29] MEDS ORDERED: BUMETANIDE 4 MG in SYRINGE 0 ML IV ONE (00:12)
[2022-01-29] MEDS ORDERED: TAMSULOSIN HCL 0.4 MG CAP PO ONE (00:40)
[2022-01-29] MEDS ORDERED: TERAZOSIN HCL 1 MG CAP PO ONE (00:40)
[2022-01-29] MEDS ORDERED: MAGNESIUM OXIDE 400 MG TAB PO STA (00:40)
--- NOTE | 2022-01-29 01:46 | History & Physical Report ---
Date of Service January 29, 2022 Assessment & Plan (1) CHF (congestive heart failure): Plan: 71 y/o M Hx PMR, BPH, HTN, HLD, IDDM, CKD III, DVT, CHF, heart transplant 2007. Presents with progressive SOB, a cough and urinary hesitancy. He does not endorse fevers. Initial labs were notable for leukocytosis although he does take daily steroids. A CTA chest demonstrated a LLL PNM and possible CHF with small BL effusions. An EKG showd sinus tach, RBBB, no evidence of acute ischemia. 1) CHF - unclear if this is chronic as we do not have an echo on record". He does take Bumex which his states is for "fluid all over his body". He was provided a dose of Lasix and we will resume PO Bumex AM pending cardiology evaluation. I/O, daily weight. 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 Presents with progressive SOB, a cough and urinary hesitancy. He does not endorse fevers. Initial labs were notable for leukocytosis although he does take daily steroids. A CTA chest demonstrated a LLL PNM and possible CHF with small BL effusions. An EKG showd sinus tach, RBBB, no evidence of acute ischemia. The pt was accepted to [place], however, no beds are available at the time of admission. PMH: 1) HTN 2) HLD 3) CHF - unspecified 4) BPH 5) CKD III 6) PMR 7) ICH which did not require surgery 8) RBBB 9) Bladder CA 10) DVT - upper ext 12) IDDM 13) Heart transplant - multiple rejection episodes Surgical: Heart transplant 2008 Social; Does not smoke. 2-3 glasses wine HS. Family: Noncontributory Allergies Allergy/AdvReac Type Severity Reaction Status Date / Time naproxen Allergy Unknown BROKE OUT Verified 01/29/22 00:56 IN A SWEAT shellfish derived Allergy Unknown HIVES Verified 01/29/22 00:56 oxycodone AdvReac Unknown HALLUCINATI Verified 01/29/22 00:56 ONS Home Medications Medication Instructions Recorded Confirmed Type losartan 100 mg tablet 100 mg PO QAM 10/17/18 01/29/22 History magnesium oxide 400 mg (241.3 mg 400 mg PO BID 10/17/18 01/29/22 History magnesium) tablet pravastatin 20 mg tablet 20 mg PO HS 10/17/18 01/29/22 History multivitamin 1 tab PO DAILY 11/07/18 01/29/22 History omeprazole 20 mg capsule,delayed 20 mg PO BID 11/07/18 01/29/22 History release tacrolimus 0.5 mg capsule, 1 mg PO QAM 11/07/18 01/29/22 History immediate-release tamsulosin 0.4 mg capsule 0.4 mg PO QPM 05/10/19 01/29/22 History terazosin 2 mg capsule 2 mg PO HS 06/08/19 01/29/22 History bumetanide 1 mg tablet 1 mg PO BID 03/12/20 01/29/22 History insulin glargine 100 unit/mL (3 5 - 10 unit subcut DAILY PRN HIGH 09/17/20 01/29/22 History mL) subcutaneous pen (Lantus BLOOD SUGAR Solostar U-100 Insulin) prednisone 5 mg tablet 5 mg PO QAM 09/17/20 01/29/22 History calcium carbonate 600 mg calcium 600 mg PO BID 06/09/21 01/29/22 History (1,500 mg) tablet (Calcium) bupropion HCl 100 mg tablet,12 hr 100 mg PO BID #180 ea 10/19/21 01/29/22 Rx sustained-release (Wellbutrin SR) semaglutide 0.25 mg or 0.5 mg (2 0.5 mg (0.4 mL) subcut WEEKLY 90 10/27/21 01/29/22 Rx mg/1.5 mL) subcutaneous pen days #36 mL injector (Ozempic) cyanocobalamin (vitamin B-12) 1,000 mcg PO DAILY 01/29/22 01/29/22 History 1,000 mcg tablet (Vitamin B-12) tacrolimus 0.5 mg capsule, 0.5 mg PO QPM 01/29/22 01/29/22 History immediate-release Past Med/Surg History Medical History (Updated 01/29/22 @ 02:41 by Allen Palma MD) Basosquamous carcinoma of skin HX Bladder cancer (1994) S / HX SURGERY AND CHEMO CHF (congestive heart failure) s/p heart transplant CKD (chronic kidney disease) stage 3, GFR 30-59 ml/min PT DENIES BEING AWARE OF ANY KIDNEY DISEASE Depression Diabetes mellitus Fluid retention ANKLES, MED CONTROLS GERD (gastroesophageal reflux disease) Hearing difficulty Hypercholesteremia Hypertension Intracranial hemorrhage PER PT HX FALL FEW YRS AGO, FELL ON ICE - BLOOD ON BRAIN AND IT GOT ABSORBED Ischemic cardiomyopathy resolved s/p heart transplant Pneumonia 05/2019 - has since resolved RBBB (right bundle branch block) resolved s/p heart transplant Status post heart transplant (2007) HX 2007 Tubular adenoma of colon ? Surgical History History of bladder surgery (1994) [place] [facility] [place] Mohs micrographic surgery for skin cancer (02/26/20) Facial / Left Tragus History of umbilical hernia repair (2011) S/P LASIK (laser assisted in situ keratomileusis) of both eyes S/P left cataract extraction 06/17/21 Family History Father Squamous cell cancer of skin of crown Mother No problems noted. Sister No problems noted. Sister No problems noted. Son No problems noted. Daughter No problems noted. Other Family history of diabetes mellitus in father Denies family history of Colon cancer Ovarian cancer Prostate cancer Myocardial infarction Breast cancer Social History Smoking Status: Never smoker Tobacco Type: Cigarettes and Pipe Age Started Using Tobacco: 18; Age Quit Using Tobacco: 28; packs per day: 0.5; Years Smoked: 10; Cigarettes Per Day: .; Number of Years Since Quit: 42; Second Hand Exposure: No; Hx Alcohol Use: Yes Alcohol type: wine Alcohol Intake Frequency: 4 or More x per/Week Hx Substance Use: No Preferred Language: Welsh Communication Ability: Effective Visual Impairment: No Limitations Hearing Ability: Normal Rental Sales Agent Required: No Beliefs That Will Affect Care: None marital status: Current Living Situation: Spouse current occupational status: retired current occupation: Retired [employer] Feels Safe at Home: Yes Childhood Exposure to Second-Hand Smoke: No caffeine: Yes (1.5 cups of coffee/day ) during the past year weight has: remained stable Dental Care, Regularly: Yes Physical Activity Frequency: Does not Exercise Seatbelt Use: always Sunscreen Use: Yes Assistive Devices: Glasses and Hearing Aid - Bilateral Review of Systems Review of Systems: Gen: Denies fevers, night sweats, rigors, fatigue, malaise, weight loss/gain ENT: Denies congestion, throat pain, hearing loss Eyes: Denies acute visual changes CV: Denies CP, palpitations Pulmonary: + SOB and cough GI: Denies N/V, diarrhea, constipation : Urinary hesitancy Neuro: Denies acute or unilateral weakness, acute gait impairment, headache or acute visual changes Musculoskeletal: Denies joint pain, inflammation Endocrine: Denies polydipsia, polyuria Skin: Denies acute rashes or ulcers Physical Exam Physical Exam: O/E General: Elderly male with mottled skin, AAO x 3, no distress ENT: No erythema or exudates, no thrush Eyes: JASMIN, EOMI Head and neck: Normocephalic, atraumatic - cannot assess JVD due to habitus. Chest/heart: Nontender, S1,2, tachy, R Lungs: + BL crackles and no air entry at L base. Abdomen: Nontender, nondistended, BS+ Neuro: AAO x 3, speech is clear, no unilateral weakness or loss of sensation, coordination intact Musculoskeletal: No joint inflammation, muscle tenderness, FROM Skin: No acute rashes or ulcers Extremities: + BL edema Results & Data Results & Data ([facility]) Vital Signs (Past 12 Hours) Vital Signs Temp Pulse Pulse Resp BP BP Pulse Ox 01/29/22 01:00 112 H 18 127/85 92 01/28/22 23:00 101 H 18 144/114 H 97 01/28/22 21:13 109 H 20 154/109 H 95 01/28/22 18:14 97.5 F L 112 H 18 141/97 H 96 O2 Del Method 01/29/22 01:00 Room Air 01/28/22 23:00 Room Air 01/28/22 21:13 Room Air 01/28/22 18:14 Room Air Code Status & VTE Plan VTE Prophylaxis Plan VTE Prophylaxis will be ordered: Yes PG Care Time/CCT Total # of Minutes Spent Total Time Spent with Patient: Total time spent is greater than 50% in coordination of care (as documented) at patient's floor/unit and/or counseling patient: Coding Level of Care Code 17667 Initial Inpt Care Lvl 3 Diagnoses CHF (congestive heart failure) I50.9 Heart failure type: unspecified Heart failure chronicity: unspecified Pneumonia J18.9 (1) CHF (congestive heart failure) Heart failure type: unspecified Heart failure chronicity: unspecified Qualified Code(s): I50.9 - Heart failure, unspecified
[2022-01-29] MEDS ORDERED: GLUCOSE 40% GEL 15 GM TUBE PO PRN (03:07)
[2022-01-29] MEDS ORDERED: DEXTROSE 50% 50 ML SYRINGE IV PRN (03:07)
[2022-01-29] MEDS ORDERED: PHARMACY GLYCEMIC MGMT CONSULT PRN (03:07)
[2022-01-29] MEDS ORDERED: CARBOHYDRATES FOR HYPOGLYCEMIA PO PRN (03:07)
[2022-01-29] MEDS ORDERED: GLUCOSE 10 TAB/TUBE PO PRN (03:07)
[2022-01-29] MEDS ORDERED: GLUCAGON FOR INJ 1 MG VIAL SQ PRN (03:07)
[2022-01-29] MEDS ORDERED: NITROGLYCERIN 2% OINTMENT 30GM TUBE EXT ONE (03:30)
[2022-01-29] MEDS: DOXYCYCLINE HYCLATE 100 MG in DEXTROSE 5% 100 ML IV SCH ×2 (04:07→16:00)
--- NOTE | 2022-01-29 06:25 | Urology Consultation ---
Date of Consultation January 29, 2022 Assessment & Plan (1) Urinary hesitancy: The patient has been admitted on the hospitalist service and appears as though he is currently being treated for congestive heart failure exacerbation. From a urology perspective concerning his urinary hesitancy would recommend the following: It does not appear the patient has an underlying urinary tract infection contributing to his symptoms Continue Flomax which patient takes at home Would recommend continuing bladder scans after patient voids. If patient continues to have high postvoid residuals consideration can be given to placing on additional medications to help with this problem If patient continues to have high postvoid residuals concerning for urinary retention consideration can be given to temporary placement of a Hutchison catheter Supervising Physician Co-Signing Physician Notes I have reviewed Mr. Vincent's case with Candelario Navarrete PA-C and agree with the above documentation. He is currently voiding reasonably well symptoms are likely exacerbated by active diuresis for CHF exacerbation. He should continue tamsulosin for now and could consider going up to 0.8 mg daily. Additionally he could be started on finasteride, 5 mg daily. As long as postvoid residuals are under 300 mL, I would hold off placing a catheter as he seems to be emptying reasonably well. History of Present Illness Reason for Consultation: Difficulty urinating Attending Physician: Allen Palma MD History of Present Illness This is a 71-year-old male who was admitted to [facility] on the hospitalist service secondary to progressive shortness of breath and a cough. In addition the patient reports some urinary hesitancy. I asked the patient about his urinary symptoms and the patient says that he is able to urinate and he feels as though he empties his bladder completely. He feels as though his urine stream is of normal strength but he does feel as though it takes him somewhat longer to initiate urine stream than usual. He denies any dysuria or hematuria. He denies any back or flank pain. I did discuss with the nurse at bedside and she notes that the patient does appear to have urinary urgency and void small amounts at a time. According to the RN the patient was bladder scanned after voiding and he had approximately 100 to 150 cc of urine remaining in his bladder. She also did note that the patient is currently being treated for CHF and has received a diuretic which may be contributing to his urinary urgency. In the emergency department the patient had labs and imaging which I independently reviewed. Chest x-ray showed the patient had bilateral pleural effusions with some pulmonary vascular congestion. A CT scan of the abdomen and pelvis showed some perinephric stranding which was felt to be nonspecific. There is no evidence of hydronephrosis or urolithiasis. Partial distention of the urinary bladder was noted on the study. A CT scan of the chest was performed that showed findings concerning for congestive heart failure. Small bilateral pleural effusions were noted. Labs included a CBC which included white blood cell count of 13.2. Hemoglobin, hematocrit, platelet count were normal chemistry profile showed sodium, potassium, and creatinine were normal. His BUN was elevated at 28. Urinalysis did show trace leukocyte Estrace but was otherwise not indicative of infection. At the time my interview the patient was resting comfortably in bed he was in no distress. Allergies Allergy/AdvReac Type Severity Reaction Status Date / Time naproxen Allergy Unknown BROKE OUT Verified 01/29/22 00:56 IN A SWEAT shellfish derived Allergy Unknown HIVES Verified 01/29/22 00:56 oxycodone AdvReac Unknown HALLUCINATI Verified 01/29/22 00:56 ONS Home Medications Medication Instructions Recorded Confirmed Type losartan 100 mg tablet 100 mg PO QAM 10/17/18 01/29/22 History magnesium oxide 400 mg (241.3 mg 400 mg PO BID 10/17/18 01/29/22 History magnesium) tablet pravastatin 20 mg tablet 20 mg PO HS 10/17/18 01/29/22 History multivitamin 1 tab PO DAILY 11/07/18 01/29/22 History omeprazole 20 mg capsule,delayed 20 mg PO BID 11/07/18 01/29/22 History release tacrolimus 0.5 mg capsule, 1 mg PO QAM 11/07/18 01/29/22 History immediate-release tamsulosin 0.4 mg capsule 0.4 mg PO QPM 05/10/19 01/29/22 History terazosin 2 mg capsule 2 mg PO HS 06/08/19 01/29/22 History bumetanide 1 mg tablet 1 mg PO BID 03/12/20 01/29/22 History insulin glargine 100 unit/mL (3 5 - 10 unit subcut DAILY PRN HIGH 09/17/20 01/29/22 History mL) subcutaneous pen (Lantus BLOOD SUGAR Solostar U-100 Insulin) prednisone 5 mg tablet 5 mg PO QAM 09/17/20 01/29/22 History calcium carbonate 600 mg calcium 600 mg PO BID 06/09/21 01/29/22 History (1,500 mg) tablet (Calcium) bupropion HCl 100 mg tablet,12 hr 100 mg PO BID #180 ea 10/19/21 01/29/22 Rx sustained-release (Wellbutrin SR) semaglutide 0.25 mg or 0.5 mg (2 0.5 mg (0.4 mL) subcut WEEKLY 90 10/27/21 01/29/22 Rx mg/1.5 mL) subcutaneous pen days #36 mL injector (Ozempic) cyanocobalamin (vitamin B-12) 1,000 mcg PO DAILY 01/29/22 01/29/22 History 1,000 mcg tablet (Vitamin B-12) tacrolimus 0.5 mg capsule, 0.5 mg PO QPM 01/29/22 01/29/22 History immediate-release Patient History Medical History Basosquamous carcinoma of skin HX Bladder cancer (1994) S / HX SURGERY AND CHEMO CHF (congestive heart failure) s/p heart transplant CKD (chronic kidney disease) stage 3, GFR 30-59 ml/min PT DENIES BEING AWARE OF ANY KIDNEY DISEASE Depression Diabetes mellitus Fluid retention ANKLES, MED CONTROLS GERD (gastroesophageal reflux disease) Hearing difficulty Hypercholesteremia Hypertension Intracranial hemorrhage PER PT HX FALL FEW YRS AGO, FELL ON ICE - BLOOD ON BRAIN AND IT GOT ABSORBED Ischemic cardiomyopathy resolved s/p heart transplant Pneumonia 05/2019 - has since resolved RBBB (right bundle branch block) resolved s/p heart transplant Status post heart transplant (2007) HX 2008 Tubular adenoma of colon ? Surgical History History of bladder surgery (1994) [place] [facility] [place] of Mohs micrographic surgery for skin cancer (02/26/20) Facial / Left Tragus History of umbilical hernia repair (2011) S/P LASIK (laser assisted in situ keratomileusis) of both eyes S/P left cataract extraction 06/17/21 Family History Father , Passed age 82 of "heart" Squamous cell cancer of skin of crown Mother , Passed age 82 of unknown No problems noted. Sister No problems noted. Sister No problems noted. Son No problems noted. Daughter No problems noted. Other Family history of diabetes mellitus in father Denies family history of Colon cancer Ovarian cancer Prostate cancer Myocardial infarction Breast cancer Social History Smoking Status: Never smoker Tobacco Type: Cigarettes and Pipe Age Started Using Tobacco: 18; Age Quit Using Tobacco: 28; packs per day: 0.5; Years Smoked: 10; Cigarettes Per Day: .; Number of Years Since Quit: 42; Second Hand Exposure: No; Hx Alcohol Use: Yes Alcohol type: wine Alcohol Intake Frequency: 4 or More x per/Week Hx Substance Use: No Preferred Language: Vincentian Communication Ability: Effective Visual Impairment: No Limitations Hearing Ability: Normal General Activities Therapist Required: No Beliefs That Will Affect Care: None marital status: Current Living Situation: Spouse current occupational status: retired current occupation: Retired [employer] Feels Safe at Home: Yes Childhood Exposure to Second-Hand Smoke: No caffeine: Yes (1.5 cups of coffee/day ) during the past year weight has: remained stable Dental Care, Regularly: Yes Physical Activity Frequency: Does not Exercise Seatbelt Use: always Sunscreen Use: Yes Assistive Devices: Glasses Review of Systems Constitutional: no fever and no chills Eyes: no eye pain Ear, Nose, Mouth, Throat: no ear pain Respiratory: + cough and + dyspnea on exertion Cardiovascular: no chest pain Gastrointestinal: no abdominal pain Genitourinary: + as per Subjective / HPI Musculoskeletal: no back pain Integumentary: no rash Neurologic: no localized weakness Physical Exam Constitutional: WD/WN, vitals as above Eyes: sclerae not anicteric ENMT: Ears: no hearing impairment and no external ear abnormality Mouth: no oropharynx abnormality Neck: trachea midline Respiratory: normal respiratory effort; no respiratory distress and no labored breathing Breath sounds are decreased at bases bilaterally Cardiovascular: Rate/Rhythm: regular rate and regular rhythm Gastrointestinal (Abdomen): Abdomen is soft, nonrigid, nondistended. There is no tenderness with palpation Musculoskeletal: No calf tenderness Skin: no rashes Neurologic: moves all extremities Results & Data ([facility]) Vital Signs (Past 12 Hours) Vital Signs Temp Pulse Resp BP Pulse Ox O2 Del Method 01/29/22 03:30 Room Air 01/29/22 03:30 36.7 C 116 H 17 155/103 H 94 Room Air 01/29/22 03:00 105 H 20 154/101 H 92 Room Air 01/29/22 01:00 112 H 18 127/85 92 Room Air 01/28/22 23:00 101 H 18 144/114 H 97 Room Air 01/28/22 21:13 109 H 20 154/109 H 95 Room Air PG Care Time/CCT Total # of Minutes Spent Total Time Spent with Patient: Total time spent is greater than 50% in coordination of care (as documented) at patient's floor/unit and/or counseling patient: Coding Level of Care Code 33423 Inpt Consult Level 4 Diagnoses Urinary hesitancy R39.11
--- NOTE | 2022-01-29 07:35 | Hospitalist Progress Note ---
Date of Service January 29, 2022 Assessment & Plan (1) CHF (congestive heart failure): Plan: 71 y/o M Hx PMR, BPH, HTN, HLD, IDDM, CKD III, DVT, CHF, heart transplant 2007. Presents with progressive SOB, a cough and urinary hesitancy. He does not endorse fevers. Initial labs were notable for leukocytosis although he does take daily steroids. A CTA chest demonstrated a LLL PNM and possible CHF with small BL effusions. An EKG showd sinus tach, RBBB, no evidence of acute ischemia. acute on chronic systolic CHF - history of idiopathic cardiomyopathy with heart transplant 06/2007, followed at [facility], in record has valvular heart disease, elevated right heart pressures and low resting ejection fraction He does take Bumex which his states is for "fluid all over his body". He was provided a dose of Lasix and bumex 1 mg bid with cardiology oversight. with reduction of ejection fraction, cardiology also will begin entresto and follow blood pressure Transplant - cont tacrolimus, prednisone, given fatigue will use stress steroids and change back to prednisone on 01/31 Full code - Heparin prophylaxis (2) Pneumonia: Plan: pt has small area of pneumonia seen on CT scan, mostly with pleural effusions, started on doxycycline, they residual image really looks like pulmonary edema, but a multifocal pneumonia could appear similar, was given Cefepime in ER and with cough of productive mucus watch blood cultures, continue Cefepime and check sputum cultures as is at risk with immune supression, consider vancomycin if not improving pending mrsa nasal swab (3) CKD (chronic kidney disease) stage 3, GFR 30-59 ml/min: (4) Hypertension: (5) Diabetes mellitus: Plan: ssi and look for basal need (6) Urinary hesitancy: Plan: Cannot urinate/BPH - will scan bladder and did consult urology, no intervnetion recommended, cont Terazosin Admission and Anticipated Discharge Date Admission Date: January 29, 2022 Subjective Patient was sleeping upon my entering the room he was more easily aroused. He did relate to me that he may have missed packed his diuretic therapy [place] and had to ration what he had packed which was half the usual dosage. He did present in heart failure. He felt that it was his diuretic medication medication for his prostate the other medications he took were typic al for him. He was seen by cardiology and Dr. Monaco feels that the patient is in the with heart failure from reduced ejection fraction and has escalated his diuretic therapy with consideration of starting Entresto Review of Systems Review of Systems: Moderate distress and fatigue no headache, no visual changes no speech or swallowing issues no chest pain, pressure or palpitations Improving shortness of breath, does have a productive cough with espinoza-colored mucus no abdominal pain, nausea or vomiting, diarrhea or constipation no dysuria, hematuria or frequency no focal joint pain does have lower extremity swelling no back pain, CVA tenderness or radicular pain no bruising, bleeding or rashes no focal signs of weakness or numbness or altered sensation no complaints of anxiety or depression.. Physical Exam Physical Exam: The patient appeared chronically ill but stable Vital signs as documented. Head exam is normocephalic atraumatic Neck is without JVD, thyromegaly, or carotid bruits. Lungs are coarse with productive cough Cardiac exam, Rhythm is regular. systolic murmur Abdominal exam reveals normal bowel sounds, soft non tender, no masses Extremities are trace edematous and both pedal pulses are present Neurologic exam is alert and oriented, no focal loss of strength or sensation Skin is without bruises or rashes Psychologically is without concerns for anxiety or depression.. Results & Data Results & Data ([facility]) Vital Signs (Past 12 Hours) Vital Signs Temp Pulse Pulse Resp BP Pulse Ox O2 Del Method 01/29/22 07:00 100 H 01/29/22 07:03 98.1 F 98 H 22 107/74 91 Room Air 01/29/22 03:30 Room Air 01/29/22 03:30 98.1 F 116 H 17 155/103 H 94 Room Air 01/29/22 03:00 105 H 20 154/101 H 92 Room Air 01/29/22 01:00 112 H 18 127/85 92 Room Air 01/28/22 23:00 101 H 18 144/114 H 97 Room Air 01/28/22 21:13 109 H 20 154/109 H 95 Room Air PG Care Time/CCT Total # of Minutes Spent Total Time Spent with Patient: Total time spent is greater than 50% in coordination of care (as documented) at patient's floor/unit and/or counseling patient: Coding Level of Care Code 26516 Subseq Hosp Care Lvl 3 Diagnoses CHF (congestive heart failure) I50.9 Heart failure chronicity: unspecified Heart failure type: unspecified Pneumonia J18.9 CKD (chronic kidney disease) stage 3, GFR 30-59 ml/min N18.3 Hypertension I10 Hypertension type: essential hypertension Diabetes mellitus E11.9; Z79.4 Diabetes mellitus complication status: without complication Diabetes mellitus joint terminal attack controller insulin use: with joint terminal attack controller use Diabetes mellitus type: type 2 Urinary hesitancy R39.11 (1) Diabetes mellitus Diabetes mellitus complication status: without complication Diabetes mellitus joint terminal attack controller insulin use: with [facility] use Diabetes mellitus type: type 2 Qualified Code(s): E11.9 - Type 2 diabetes mellitus without complications; Z79.4 - termite control technician (current) use of insulin (2) CHF (congestive heart failure) Heart failure chronicity: unspecified Heart failure type: unspecified Qualified Code(s): I50.9 - Heart failure, unspecified (3) Hypertension Hypertension type: essential hypertension Qualified Code(s): I10 - Essential (primary) hypertension
[2022-01-29] MEDS: buPROPion SR 100 MG TABCR PO SCH ×2 (07:58→20:26)
[2022-01-29] MEDS: MAGNESIUM OXIDE 400 MG TAB PO SCH ×2 (07:59→20:26)
[2022-01-29] MEDS: PANTOprazole 40 MG TAB PO SCH ×2 (07:59→20:33)
--- NOTE | 2022-01-29 08:00 | CT Scan Report ---
ABDOMEN AND PELVIS CT WITHOUT CONTRAST CT DOSE: 1531.37 mGy.cm HISTORY: Diarrhea. Dysuria. TECHNIQUE: Multiaxial CT images of the abdomen and pelvis were performed without contrast. A dose lo wering technique was utilized adhering to the principles of ALARA. COMPARISON STUDY: Abdomen and pelvis CT 05/16/2014.. FINDINGS: The lung bases will be reported separately on the same day chest CTA. Bilateral pleural eff usions. Patchy left lower lobe airspace opacities likely represent a pneumonia. Right lower lobe dens ities favor chronic atelectasis from the pleural effusions. Mild motion artifact. No pneumoperitoneum . No pneumatosis. No fractures within the visualized osseous structures. There are poststernotomy marilyn nges. The heart is enlarged. Subtle nodular contour to the liver likely represents early cirrhosis. T he unenhanced spleen, adrenal glands, and pancreas are unremarkable. Normal gallbladder. There are fe w bilateral renal hypodense lesions which are incompletely characterized on this noncontrast study bu t statistically represent cysts. There is an indeterminate exophytic intermediate density lesion with in the lower pole of the left kidney measuring 12 mm on image 240. Mild bilateral perinephric edema i s noted. No ureteral stones. No hydronephrosis. No retroperitoneal or pelvic lymphadenopathy. There i s a small amount of ascites. The prostate gland is mildly enlarged. Mild bladder wall thickening with adjacent fat stranding. Suboptimal evaluation for bowel pathology due to the lack of intravenous and oral contrast. However, there is no definite bowel wall thickening or obstruction. Colonic diverticu losis. No evidence for acute diverticulitis. The tip of the appendix is obscured by the fluid within the right lower quadrant. Otherwise, the visualized appendix is normal and caliber. IMPRESSION: 1. Bladder wall thickening with adjacent fat stranding. This likely represents a cystitis. Recommend correlation with urinalysis. 2. Small amount of ascites. 3. No definite bowel wall thickening or obstruction. 4. Nodular contour to the liver likely representing cirrhosis. 5. An indeterminate exophytic 12 mm lesion within the lower pole of the left kidney. This could repre sent a hyperdense cyst or solid renal mass. Consider follow-up dedicated renal MRI or CT for further evaluation. 6. Bilateral pleural effusions and left basilar densities which favor a pneumonia. This is better nandini reciated on the same day chest CT. 7. Additional findings as described above. ACT 112: Negative or not required by law. Electronically signed by: Keyshawn aM M.D. 01/29/2022 7:59 AM
[2022-01-29 08:13] LABS: Basophils # (auto) 0.02 K/uL (0-0.2); Basophils % (auto) 0.2 %; Eosinophils # (auto) 0.08 K/uL (0-0.50); Eosinophils % (auto) 0.7 %; Hematocrit (blood only) 41.8 % (40.1-51.0); Hemoglobin 13.5 g/dl (14.0-18.0); Immature Granulocytes # (auto) 0.05 K/uL (0.00-0.02); Immature Granulocytes % (auto) 0.4 %; Lymphocytes # (auto) 1.38 K/uL (1.2-3.4); Lymphocytes % (auto) 12.3 %; Mean Corpuscular Hemoglobin 28.2 pg (25.0-34.0); Mean Corpuscular Hgb Conc 32.3 g/dL (32.0-36.0); Mean Corpuscular Volume 87.3 fL (80.0-100.0); Mean Platelet Volume 9.7 fL (9.4-12.4); Monocytes # (auto) 1.69 K/uL (0.24-0.82); Neutrophils # (auto) 8.03 K/uL (1.4-6.5); Neutrophils % (auto) 71.4 %; Platelet Count 233 K/uL (130-400); RDW Coefficient of Variation 14.3 % (11.5-14.5); RDW Standard Deviation 45.4 fL (36.4-46.3); Red Blood Count 4.79 M/uL (4.63-6.08); White Blood Count 11.25 K/ul (4.8-10.8)
[2022-01-29] MEDS: INSULIN ASPART PER UNIT SC SCH ×4 (08:32→21:29)
[2022-01-29 08:34] LABS: BUN Creatinine Ratio 21.8 (10-20); Calcium 8.7 mg/dl (8.5-10.1); Creatinine Clr Calc Pharmacy 60.8 ml/min; Est GFR (African American) 66.4 ml/min; Est GFR (Non-African American) 57.3 ml/min; Magnesium 1.8 mg/dl (1.7-2.4); Potassium 3.8 mmol/L (3.5-5.1)
--- NOTE | 2022-01-29 08:44 | CT Scan Report ---
CHEST CTA for PULMONARY ARTERIES CT DOSE: 546.98 mGy.cm HISTORY: Severe cough. Shortness of breath. TECHNIQUE: Multiaxial CT images of the chest were performed following the intravenous administration of contrast to evaluate the pulmonary arteries. Maximal intensity projection images were also obtaine d. A dose lowering technique was utilized adhering to the principles of ALARA. COMPARISON STUDY: Chest CTA 06/06/2019. FINDINGS: Please refer to the same day abdomen and pelvis CT for further evaluation of the abdominal structures. There is retrograde opacification of the hepatic veins suggesting right heart dysfunction . The transplanted heart remains enlarged. No pericardial effusion. Small to moderate right and small left pleural effusions. Chronic consolidation within the right lower lobe is again noted which favor s round atelectasis. There are new patchy groundglass and nodular densities within the left lower lob e likely representing a pneumonia. No pneumothorax. Mild central bronchial wall thickening which is l ikely chronic. There is a 3 mm nodule within the right upper lobe anteriorly on image 164. This remai ns stable. Mild nodular thickening along the right minor fissure is also unchanged. There are few bib asilar linear densities consistent with subsegmental atelectasis. There are poststernotomy changes. T here are old, healed right posterior rib fractures. Normal esophagus. Calcified mediastinal and right hilar lymph nodes. No significant lymphadenopathy. Normal caliber thoracic aorta. Nondiagnostic eval uation for an aortic dissection due to the lack of contrast within the thoracic aorta. Nondiagnostic evaluation of the majority of the subsegmental and segmental pulmonary arteries due to the respirator y motion artifact and timing of contrast. The main and lobar pulmonary arteries appear patent. Questi onable filling defect seen within the right upper lobe subsegmental pulmonary artery on image 184 is likely due to mixing of contrast. 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 This remains unchanged. IMPRESSION: 1. Left lower lobe airspace opacities consistent with a pneumonia. 2. Small to moderate right and small left pleural effusions. 3. Cardiomegaly with evidence for right heart dysfunction, unchanged. 4. No evidence for central pulmonary embolus with limitations as described above. 5. Additional findings as described above. ACT 112: Negative or not required by law. Electronically signed by: Keyshawn Ma M.D. 01/29/2022 8:43 AM
[2022-01-29] MEDS ORDERED: LOSARTAN POTASSIUM 50 MG TAB PO SCH (09:00)
[2022-01-29] MEDS ORDERED: TACROLIMUS 1 MG CAP PO SCH (09:00)
[2022-01-29] MEDS ORDERED: predniSONE 5 MG TAB PO SCH (09:00)
[2022-01-29] MEDS ORDERED: BUMETANIDE 1 MG TAB PO SCH (09:00)
--- NOTE | 2022-01-29 09:14 | Cardiology Consultation ---
Date of Consultation January 29, 2022 History of Present Illness Reason for Consultation: Increasing shortness of breath, heart failure, history of orthotopic transplant Attending Physician: Arnulfo Lobato MD History of Present Illness Patient notes over the last 2 weeks he has had progressive shortness of breath, orthopnea, increased abdominal distention and abdominal fullness as well as early satiety. He has had a little bit of worsening swelling in his legs he has had to prop himself up on pillows any notes he has been more short of breath when he has been walking he denies any fevers or chills. He does note that his cough is more prominent and usually his sputum is relatively clear but has been more yellowish. He denies any shaking chills or rigors. He has chronic lightheadedness if he bends over to pick something up. He notes with change in position as an sitting to standing he notes mild lightheadedness. He denies any presyncope syncope or falls. He is unaware of any palpitations or fluttering or feeling his heart racing. He was in sinus tachycardia when he was admitted. He notes up until 2 weeks ago he had felt relatively well. He denies any home sick contacts. The rest complete of systems otherwise negative Allergies Allergy/AdvReac Type Severity Reaction Status Date / Time naproxen Allergy Unknown BROKE OUT Verified 01/29/22 00:56 IN A SWEAT shellfish derived Allergy Unknown HIVES Verified 01/29/22 00:56 oxycodone AdvReac Unknown HALLUCINATI Verified 01/29/22 00:56 ONS Home Medications Medication Instructions Recorded Confirmed Type losartan 100 mg tablet 100 mg PO QAM 10/17/18 01/29/22 History magnesium oxide 400 mg (241.3 mg 400 mg PO BID 10/17/18 01/29/22 History magnesium) tablet pravastatin 20 mg tablet 20 mg PO HS 10/17/18 01/29/22 History multivitamin 1 tab PO DAILY 11/07/18 01/29/22 History omeprazole 20 mg capsule,delayed 20 mg PO BID 11/07/18 01/29/22 History release tacrolimus 0.5 mg capsule, 1 mg PO QAM 11/07/18 01/29/22 History immediate-release tamsulosin 0.4 mg capsule 0.4 mg PO QPM 05/10/19 01/29/22 History terazosin 2 mg capsule 2 mg PO HS 06/08/19 01/29/22 History bumetanide 1 mg tablet 1 mg PO BID 03/12/20 01/29/22 History insulin glargine 100 unit/mL (3 5 - 10 unit subcut DAILY PRN HIGH 09/17/20 01/29/22 History mL) subcutaneous pen (Lantus BLOOD SUGAR Solostar U-100 Insulin) prednisone 5 mg tablet 5 mg PO QAM 09/17/20 01/29/22 History calcium carbonate 600 mg calcium 600 mg PO BID 06/09/21 01/29/22 History (1,500 mg) tablet (Calcium) bupropion HCl 100 mg tablet,12 hr 100 mg PO BID #180 ea 10/19/21 01/29/22 Rx sustained-release (Wellbutrin SR) semaglutide 0.25 mg or 0.5 mg (2 0.5 mg (0.4 mL) subcut WEEKLY 90 10/27/21 01/29/22 Rx mg/1.5 mL) subcutaneous pen days #36 mL injector (Ozempic) cyanocobalamin (vitamin B-12) 1,000 mcg PO DAILY 01/29/22 01/29/22 History 1,000 mcg tablet (Vitamin B-12) tacrolimus 0.5 mg capsule, 0.5 mg PO QPM 01/29/22 01/29/22 History immediate-release Patient History Medical History Basosquamous carcinoma of skin HX Bladder cancer (1994) S / HX SURGERY AND CHEMO CHF (congestive heart failure) s/p heart transplant CKD (chronic kidney disease) stage 3, GFR 30-59 ml/min PT DENIES BEING AWARE OF ANY KIDNEY DISEASE Depression Diabetes mellitus Fluid retention ANKLES, MED CONTROLS GERD (gastroesophageal reflux disease) Hearing difficulty Hypercholesteremia Hypertension Intracranial hemorrhage PER PT HX FALL FEW YRS AGO, FELL ON ICE - BLOOD ON BRAIN AND IT GOT ABSORBED Ischemic cardiomyopathy resolved s/p heart transplant Pneumonia 05/2019 - has since resolved RBBB (right bundle branch block) resolved s/p heart transplant Status post heart transplant (2007) HX 2007 Tubular adenoma of colon ? Surgical History History of bladder surgery (1994) History of heart [place]2007[place] [facility] [place] of Mohs micrographic surgery for skin cancer (02/26/20) Facial / Left Tragus History of umbilical hernia repair (2011) S/P LASIK (laser assisted in situ keratomileusis) of both eyes S/P left cataract extraction 06/17/21 Family History Father , Passed age 82 of "heart" Squamous cell cancer of skin of crown Mother , Passed age 82 of unknown No problems noted. Sister No problems noted. Sister No problems noted. Son No problems noted. Daughter No problems noted. Other Family history of diabetes mellitus in father Denies family history of Colon cancer Ovarian cancer Prostate cancer Myocardial infarction Breast cancer Social History Smoking Status: Never smoker Tobacco Type: Cigarettes and Pipe Age Started Using Tobacco: 18; Age Quit Using Tobacco: 28; packs per day: 0.5; Years Smoked: 10; Cigarettes Per Day: .; Number of Years Since Quit: 42; Second Hand Exposure: No; Hx Alcohol Use: Yes Alcohol type: wine Alcohol Intake Frequency: 4 or More x per/Week Hx Substance Use: No Preferred Language: Macedonian Communication Ability: Effective Visual Impairment: No Limitations Hearing Ability: Normal Dietary Aid Required: No Beliefs That Will Affect Care: None marital status: Current Living Situation: Spouse current occupational status: retired current occupation: Retired [employer] Feels Safe at Home: Yes Childhood Exposure to Second-Hand Smoke: No caffeine: Yes (1.5 cups of coffee/day ) during the past year weight has: remained stable Dental Care, Regularly: Yes Physical Activity Frequency: Does not Exercise Seatbelt Use: always Sunscreen Use: Yes Assistive Devices: Glasses Results & Data ([facility]) Vital Signs (Past 12 Hours) Vital Signs Temp Pulse Pulse Resp BP Pulse Ox O2 Del Method 01/29/22 07:00 100 H 01/29/22 07:03 36.7 C 98 H 22 107/74 91 Room Air 01/29/22 03:30 Room Air 01/29/22 03:30 36.7 C 116 H 17 155/103 H 94 Room Air 01/29/22 03:00 105 H 20 154/101 H 92 Room Air 01/29/22 01:00 112 H 18 127/85 92 Room Air 01/28/22 23:00 101 H 18 144/114 H 97 Room Air 01/28/22 21:13 109 H 20 154/109 H 95 Room Air He is awake alert and oriented x3 he did not appear short of breath talking in sentences. HEENT mildly reduced carotid upstrokes no evidence of carotid bruits Lungs: Decreased breath sounds in the bases bilaterally Heart: Regular rate and rhythm there were no appreciable murmurs rubs or gallops his heart sounds were not distant Abdomen: Firm distended positive bowel sounds nontender Extremities: Trace bilateral lower extremity edema Psychiatric his affect appeared appropriate His inpatient labs and imaging studies were reviewed IMPRESSIONS: 1. History of orthotopic transplant in 2007 secondary to a nonischemic cardiomyopathy 2. Echocardiogram at [facility] June 2021 with mildly reduced left ventricular dysfunction, dilated right ventricle with RV dysfunction, moderate mitral regurgitation, and severe tricuspid regurgitation 3. Chronic kidney disease stage III with a baseline creatinine of 1.3 but as high as 1.7 in the last year 4. Chronic immunosuppression 5. History of multiple infections including pneumonia in the past 6. History of atrial flutter status post cardioversion 7. Possible pneumonia this admission I would switch his Bumex over to IV Bumex a milligram twice daily. He already received his morning Bumex dose orally therefore we will start at this evening. I would continue with diuresis as long as we do not bump his renal function too significantly. I did reach out to the transplant team. As far as I am aware there is no contraindication to switching his losartan over to Entresto and given the fact that his LV function is down he would qualify. I did discuss his echocardiogram this morning with Dr. Silva who does suggest his LV function is at least mildly reduced with a significantly dilated right ventricle and RV dysfunction and severe tricuspid regurgitation. I would continue with antibiotics for now. He already has lightheadedness and dizziness at home we will have to be careful that we do not lower his blood pressure too much. This morning his blood pressure was well controlled. Urology is seeing him for urinary retention. We will continue to follow him with you 5.
[2022-01-29] MEDS ORDERED: LANTUS PER UNIT CHARGE SQ ONE (09:15)
--- NOTE | 2022-01-29 09:38 | XRay Report ---
XR chest 1V portable HISTORY: cough COMPARISON: Chest 06/09/2019. FINDINGS: The heart remains enlarged. No pneumothorax. There are poststernotomy changes. There is mil d interstitial pulmonary edema. Small bilateral pleural fusions and patchy bibasilar densities have p rogressed. IMPRESSION: 1. Cardiomegaly with mild interstitial pulmonary edema. 2. Small bilateral pleural effusions and bibasilar densities have progressed. ACT 112: Negative or not required by law. Electronically signed by: Keyshawn Ma M.D. 01/29/2022 9:37 AM
--- NOTE | 2022-01-29 11:13 | Pharmacy Report ---
Pharmacy Glycemic Short Note 2 - Date of Service January 29, 2022 - Glycemic Short BSG Results (Last 24 hours): 01/28/22 01/29/22 01/29/22 18:44 07:04 07:53 Glucose 138 H 128 H POC Glucose 118 H OUTPATIENT ANTIDIABETIC REGIMEN: * Lantus 5 units SC BID (hold AM dose if BSG < 140 mg/dL and PM dose if BSG < 200 mg/dL) * Semaglutide * HbA1c pending for 01/29/22 ASSESSMENT: * 71 yo M w diabetes admitted 01/29 for heart failure and PNA. Type of diabetes not documented. T2DM is likely given semaglutide usage, but this does not exclude possibility of T1DM. Discussed w Dr. Luis Alfredo LEBLANC to treat as T2DM alone as T1DM is unlikely given age and lack of rapid-acting insulin as an outpatient. * AM BSG in goal range. Will continue with low-dose home Lantus with slightly adjusted home parameters * Novolog at close to weight-based moderate stress estimate. Would normally use slightly tighter CHO ratio given prednisone usage, but this is a continuation of chronic outpatient therapy and low insulin doses at an outpatient suggest he may not be significantly steroid sensitive. Will therefore also loosen correction factor slightly from that estimate PLAN FOR INPATIENT GLYCEMIC CONTROL: * Hold outpatient diabetes medications (semaglutide) * Basal insulin * Lantus 5 units SQ BID (hold in AM if BSG less than 100 mg/dL, hold in PM if BSG less than 140 mg/dL) * Bolus insulin * NovoLog per scale ACHS or Q6hrs while NPO * Goal Range: Low 110 mg/dL - High 140 mg/dL * Correction Factor: 30 mg/dL/unit * Nutritional / Prandial insulin per carb ratio of 1 unit per 8 grams CHO consumed
[2022-01-29 11:49] LABS: Estimated Average Glucose 140 mg/dl; Hemoglobin A1C 6.5 % (4.5-5.6)
[2022-01-29] MEDS: CEFEPIME 2,000 MG in SYRINGE 0 ML IV SCH ×2 (13:51→21:56)
[2022-01-29] MEDS: HYDROCORTISONE SOD 50 MG in SYRINGE 0 ML IV SCH ×2 (13:51→20:26)
--- NOTE | 2022-01-29 15:55 | XCELERA ---
[id number]
[2022-01-29] MEDS ORDERED: BUMETANIDE 1 MG in SYRINGE 0 ML IV SCH (17:00)
--- NOTE | 2022-01-29 18:27 | Electrocardiogram Report ---
Test Reason : Blood Pressure : / mmHG Vent. Rate : 111 BPM Atrial Rate : 111 BPM P-R Int : 200 ms QRS Dur : 162 ms QT Int : 368 ms P-R-T Axes : 000 -24 073 degrees QTc Int : 500 ms Likely sinus tachycardia although atrial flutter should be considered Indeterminate axis Right bundle branch block Inferior infarct (cited on or before 05-AUG-2007) T wave abnormality, consider lateral ischemia Abnormal ECG When compared with ECG of 07-JUN-2019 19:43, Premature atrial complexes are no longer Present Confirmed by Figueroa Silva ([id number]) on 01/29/2022 6:27:10 PM Referred By: REFERRED SELF Confirmed By:Daljit Silva
[2022-01-29] MEDS ORDERED: PRAVASTATIN SOD 20 MG TAB PO SCH (21:00)
[2022-01-29] MEDS ORDERED: LANTUS PER UNIT CHARGE SQ SCH (21:00)
[2022-01-29] MEDS ORDERED: TAMSULOSIN HCL 0.4 MG CAP PO SCH (21:00)
[2022-01-29] MEDS ORDERED: VALSARTAN/SACUBITRIL 26/24MG TAB PO SCH (21:00)
[2022-01-29] MEDS ORDERED: TACROLIMUS 0.5 MG CAP PO SCH (21:00)
[2022-01-29] MEDS ORDERED: TERAZOSIN HCL 1 MG CAP PO SCH (21:00)
[2022-01-29 22:53] VITALS: BP 125/90; PULSE 101; TEMP 98.6; O2SAT 92
[2022-01-30] MEDS ORDERED: LANTUS PER UNIT CHARGE SQ SCH (09:00)
[2022-01-31] MEDS ORDERED: predniSONE 5 MG TAB PO SCH (09:00)
--- NOTE | 2022-02-02 11:04 | Discharge Summary ---
Date of Service January 29, 2022 Admission HPI Per Admitting Provider 71 y/o M Hx PMR, BPH, HTN, HLD, IDDM, CKD III, DVT, CHF, heart transplant 2007. Presents with progressive SOB, a cough and urinary hesitancy. He does not endorse fevers. Initial labs were notable for leukocytosis although he does take daily steroids. A CTA chest demonstrated a LLL PNM and possible CHF with small BL effusions. An EKG showd sinus tach, RBBB, no evidence of acute ischemia. The pt was accepted to [facility], however, no beds are available at the time of admission. PMH: 1) HTN 2) HLD 3) CHF - unspecified 4) BPH 5) CKD III 6) PMR 7) ICH which did not require surgery 8) RBBB 9) Bladder CA 10) DVT - upper ext 12) IDDM 13) Heart transplant - multiple rejection episodes Surgical: Heart transplant 2007 Social; Does not smoke. 2-3 glasses wine HS. Family: Noncontributory Principal Diagnosis Acute on chronic systolic heart failure and transplanted heart Discharge Exam Pt was transferred at night, under direction of [facility] cardiac transplant team, I did not see the pt at the time of transfer but see progress note from 01/29/22 Discharge Data Allergies Allergy/AdvReac Type Severity Reaction Status Date / Time naproxen Allergy Unknown BROKE OUT Verified 01/29/22 00:56 IN A SWEAT shellfish derived Allergy Unknown HIVES Verified 01/29/22 00:56 oxycodone AdvReac Unknown HALLUCINATI Verified 01/29/22 00:56 ONS Consultations 01/29/22 00:42 ED Decision to Admit Stat 01/29/22 03:30 Consult Cardiology Routine 01/29/22 05:34 Consult Urology Routine 01/29/22 20:50 Burn CD for patient Routine Ordered Studies 01/28/22 21:57 CT abd pelvis wo con Urgent 01/28/22 22:22 CT angio chest PE protocol Urgent Hospital Course (1) CHF (congestive heart failure): 71 y/o M Hx PMR, BPH, HTN, HLD, IDDM, CKD III, DVT, CHF, heart transplant 2007. Presents with progressive SOB, a cough and urinary hesitancy. He does not endorse fevers. Initial labs were notable for leukocytosis although he does take daily steroids. A CTA chest demonstrated a LLL PNM and possible CHF with small BL effusions. An EKG showd sinus tach, RBBB, no evidence of acute ischemia. acute on chronic systolic CHF - history of idiopathic cardiomyopathy with heart transplant 06/2007, followed at [facility], in record has valvular heart disease, elevated right heart pressures and low resting ejection fraction He does take Bumex which his states is for "fluid all over his body". He was provided a dose of Lasix and bumex 1 mg bid with cardiology oversight. with reduction of ejection fraction, cardiology also will begin entresto and follow blood pressure Transplant - cont tacrolimus, prednisone, given fatigue will use stress steroids and [facility] cardiac transplant team requested transfer 01/29 Full code - Heparin prophylaxis (2) Pneumonia: pt has small area of pneumonia seen on CT scan, mostly with pleural effusions, started on doxycycline, they residual image really looks like pulmonary edema, but a multifocal pneumonia could appear similar, was given Cefepime in ER and with cough of productive mucus watch blood cultures, continue Cefepime and check sputum cultures as is at risk with immune supression, consider vancomycin if not improving pending mrsa nasal swab (3) CKD (chronic kidney disease) stage 3, GFR 30-59 ml/min: (4) Hypertension: (5) Diabetes mellitus: ssi and look for basal need (6) Urinary hesitancy: Cannot urinate/BPH - will scan bladder and did consult urology, no intervnetion recommended, cont Terazosin Total Time Total Time Spent Total Time Spent (In Minutes): pt was transferred in the evening it required greater than 30 minutes to prepare this patient for discharge Discharge Plan Discharge Items Patient Disposition: Transfer Acute Care Hospital Reason For Visit: CHF Discharge Diagnosis: CHF Activity: Resume your previous activity Non-emergency contact: Primary Care Provider Call non-emergency contact if: your symptoms worsen Follow-up/Referrals: Guillermo Vega III, CRNP [Primary Care Provider] - Diet: Carb Count or DM1 and Low Sodium (2gm) Addtl Attending Provider Instructions: 71 y/o M Hx PMR, BPH, HTN, HLD, IDDM, CKD III, DVT, CHF, heart transplant 2007. Presents with progressive SOB, a cough and urinary hesitancy. He does not endorse fevers. Initial labs were notable for leukocytosis although he does take daily steroids. A CTA chest demonstrated a LLL PNM and possible CHF with small BL effusions. An EKG showed sinus tach, RBBB, no evidence of acute i schemia 1) CHF - unclear if this is chronic as we do not have an echo on record". He does take Bumex which his states is for "fluid all over his body". He was provided a dose of Lasix and we will resume PO Bumex AM pending cardiology evaluation. I/O, daily weight. 2) PNM - placed on BID Doxy 3) Transplant - cont tacrolimus, prednisone 4) Cannot urinate/BPH - will scan bladder and consult urology cont Terazosin 5) IDDM - sliding scale 6) CKD III - sliding scale 7) HTN, HLD - cont statin, ARB Pending Studies at Discharge: No Stand-Alone Forms: My [facility] Skilled Items Patient informed of condition?: Yes DNR: No Discharge Level of Care: Other Communicable Disease: No Discharge Prognosis: Stable Lines: None Urinary Catheter: No Medications and DC Order Prescriptions: Continued prednisone 5 mg tablet 5 mg PO QAM Lantus Solostar U-100 Insulin 100 unit/mL (3 mL) insulin pen 5 - 10 unit subcut DAILY PRN (Reason: HIGH BLOOD SUGAR) Rx Instructions: IF AM BSG IS > 140, TAKE 5 UNITS.(VERIFIED PAT CALL 06/09/21) IF PM BSG IS > 200, TAKE 5 UNITS.(VERIFIED PAT CALL 06/09/21) bupropion HCl [Wellbutrin SR] 100 mg tablet sustained-release 12 hr 100 mg PO BID Qty: 180 3RF Ozempic 0.25 mg or 0.5 mg(2 mg/1.5 mL) pen injector 0.5 mg SQ WEEKLY 90 Days Qty: 36 1RF Label Comments: [place] magnesium oxide 400 mg (241.3 mg magnesium) tablet 400 mg PO BID pravastatin 20 mg tablet 20 mg PO HS losartan 100 mg tablet 100 mg PO QAM multivitamin tablet 1 tab PO DAILY omeprazole 20 mg capsule,delayed release(DR/EC) 20 mg PO BID tacrolimus 0.5 mg capsule 1 mg PO QAM Label Comments: 0.5 mg PO Take 1mg in AM (2 caps) and 0.5 mg (one cap) at night; Rx Instructions: Take 1mg in AM @0900 tamsulosin 0.4 mg capsule 0.4 mg PO QPM terazosin 2 mg capsule 2 mg PO HS calcium carbonate [Calcium 600] 600 mg calcium (1,500 mg) Tablet 600 mg PO BID cyanocobalamin (vitamin B-12) [Vitamin B-12] 1,000 mcg Tablet 1,000 mcg PO DAILY tacrolimus 0.5 mg capsule 0.5 mg PO QPM No Action bumetanide 1 mg tablet 2 mg PO DAILY Rx Instructions: [facility] 01/31/22- Flex to 3 MG PRN doxycycline hyclate 100 mg capsule 100 mg PO BID Qty: 60 0RF Rx Instructions: [facility] 01/31/22 Discharge Orders: Discharge Order (Routine); Ordered 01/29/22 Ordered By: Keon Smalls/Other Patient Handouts: Managing Type 2 Diabetes Admission Data Admit Date/Time: 01/29/22 01:35 Attending Provider: Arnulfo Lobato Admit Provider: Allen Palma Primary Care Provider: Guillermo Vega III Other Providers: Allen Palma ; Pj Gann ; Romero Mendoza Other Interventions: Discharge Summary Assessment (RN) Last Done: 01/29/22 23:45 Coding Level of Care Code D/C DAY MANAGEMENT >30 MINS Diagnoses CHF (congestive heart failure) I50.9 Heart failure type: unspecified Heart failure chronicity: unspecified Pneumonia J18.9 CKD (chronic kidney disease) stage 3, GFR 30-59 ml/min N18.3 Hypertension I10 Hypertension type: essential hypertension Diabetes mellitus E11.9; Z79.4 Diabetes mellitus type: type 2 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
== END 2022-01-30 00:50 | disposition short-term general hospital (02) | DRG 291 ==
LOC: ED 17:59 → SUATTDRO 01-29 01:35 → 2E 01-29 01:35

== ENCOUNTER 2022-07-22 10:05 | Inpatient (IN) ==
[2022-07-22] MEDS ORDERED: ONDANSETRON INJ 2 MG/ML 2 ML VIAL IV STA (10:47)
[2022-07-22] MEDS ORDERED: ACETAMINOPHEN 500 MG TAB PO STA (10:47)
--- NOTE | 2022-07-22 10:51 | Emergency Department Note ---
Impression & Plan Sepsis, Acute gastroenteropathy due to Norovirus, Acute dehydration, Lactic acidosis ED Provider Note Name: BALTAZAR HOLT Age: 72 Sex: M Arrives Via: Ambulance Informant: Patient, ED Provider: Glen Bonilla MD Chief Complaint: Illness Impression: As per impression above Medical Decision Making: Pleasant 72-year-old gentleman with a history of cardiac transplant, diabetes, CKD, CHF amongst multiple other comorbidities arrives for worsening illness. Patient with nausea vomiting diarrhea and severe weakness. His does have a similar GI bug though not his degree. Patient arrives tachycardic ill-appearing and dehydrated. Septic work-up initiated he was given 1 L normal saline bolus. Laboratory work-up reveals normal white blood cell count but he does have an elevated lactate and procalcitonin. Patient's chest x-ray is unremarkable. Abdominal exam is benign without tenderness palpation. While considered that this is likely viral in the setting of transplant immunocompromise state and abnormal labs he was empirically given Zosyn and vancomycin for broad-spectrum antibiotic coverage while awaiting further testing. Patient was reevaluated multiple times and looks much better after hydration. Hospitalist and several times to evaluate patient as well and manage some of his rejection meds on top of this. I will note patient is still PCR testing did eventually come back and he is positive for norovirus. I discussed this with the hospitalist to make them aware. Patient has a history of CHF and CKD, I feel a 30/kg bolus for him regarding s epsis would be an appropriate and thus he was given a 1 L normal saline bolus. Following this patient's heart rate is come down he looks vastly improved. Prior Medical Record and Triage/Nursing Notes reviewed by Me External chart review including previous hospitalization stays reviewed by me Differentials:Sepsis/septic shock, pneumonia, COVID, PE, ACS, intra-abdominal infection, gastroenteritis amongst many other pathologies considered Vital Signs: reviewed and remarkable for tachycardia fever Interventions: Normal Saline bolus 1 L IV, Zosyn IV, Vanco IV Labs:Reviewed and remarkable for elevated lactate and elevated procalcitonin Imagin view chest x-ray as per my interpretation mild congestive findings but no overt lobar infiltrate EKG:As per my interpretation. Indication sepsis. Sinus tachycardia at 123 bpm with a bifascicular block. There is no ectopy nor overt ischemia. When compared to an EKG of January 29, 2022 there is no significant change. Cardiac/Tele Monitoring: Cardiac Monitoring: An Order was placed for continuous cardiac monitoring. The monitor shows a rate of 110 with a sinus tach rhythm. Consults:Dr Ivonne ESCALONA Hospitalist Plan: Disposition:Hospitalization. Condition: Good History of Present Illness:72-year-old gentleman arrives for evaluation illness. Patient notes he started feeling ill yesterday. Associate with nausea vomiting diarrhea. He was so weak he had to sit down on the floor. He denies any falls, trauma, injuries. He denies any headache or neck pain. Patient states he is feeling severely weak. He denies any shortness of breath and does not think he aspirated any vomit yesterday. Notes some mild abdominal cramping but no specific pain. No urinary burning. Diarrhea is frequent every hour or so and is liquid. He notes he is too weak to stand now. Feels like his heart is racing. No medications prior to arrival. His is currently ill with similar symptoms. Past History:See Below Home Medications:See Below Allergies:See Below Vitals:Blood Pressure: 136/88, Pulse 122, RR 18, T 37.7C, O2 94% on RA Physical Exam: GENERAL: Patient is unwell/dehydrated/ill appearing and in mild distress. EYES: No scleral icterus, unremarkable pupils. ENT: Mucous membranes dry/cracked, no nasal congestion. Right eye conjunctivi tis with drainage which patient states is chronic NECK: No masses appreciated, nomeningismus, trachea is midline. RESPIRATORY: Mild dyspnea/tachypnea without any specific wheezes. Lungs are clear bilaterally CARDIOVASCULAR: Tachycardic GASTROINTESTINAL: Abdomen soft, non-tender, no peritonitis. EXTREMITIES: Normal motion all extremities, no cyanosis, no edema. NEUROLOGIC: Alert and oriented, no acute motor or sensory deficits, no focal weakness, cranial nerves grossly intact. SKIN: No rash, no jaundice, no diaphoresis. Skin turgor PSYCH: Appropriate GCS: 15 ED Course: Times/Reassessments: Patient is much proved after 1 L normal saline bolus is breathing comfortably agreeable to hospitalization. Critical Care: I have personally spent 40 minutes of critical care time in the direct management of this patient. Sepsis with immunocompromised state requiring fluid resuscitation. This was a life/limb threatening event. This 40 minutes is in excess of all separately billable procedures. Glen Bonilla MD Past Med/Surg History Medical History Basosquamous carcinoma of skin HX Bladder cancer (1994) 1989'S / HX SURGERY AND CHEMO CHF (congestive heart failure) s/p heart transplant CKD (chronic kidney disease) stage 3, GFR 30-59 ml/min PT DENIES BEING AWARE OF ANY KIDNEY DISEASE Depression Diabetes mellitus Fluid retention ANKLES, MED CONTROLS GERD (gastroesophageal reflux disease) Hearing difficulty Hypercholesteremia Hypertension Intracranial hemorrhage PER PT HX FALL FEW YRS AGO, FELL ON ICE - BLOOD ON BRAIN AND IT GOT ABSORBED Ischemic cardiomyopathy resolved s/p heart transplant Pneumonia 05/2019 - has since resolved RBBB (right bundle branch block) resolved s/p heart transplant Status post heart transplant (2007) HX 2007 Tubular adenoma of colon ? Surgical History History of bladder surgery (1994) History of heart transplant (2007) [facility] [place] History of Mohs micrographic surgery for skin cancer (02/26/20) Facial / Left Tragus History of umbilical hernia repair (2011) S/P LASIK (laser assisted in situ keratomileusis) of both eyes S/P left cataract extraction 06/17/21 Family History Father , Passed age 82 of "heart" Squamous cell cancer of skin of crown Mother , Passed age 82 of unknown No problems noted. Sister No problems noted. Sister No problems noted. Son No problems noted. Daughter No problems noted. Other Family history of diabetes mellitus in father Denies family history of Colon cancer Ovarian cancer Prostate cancer Myocardial infarction Breast cancer Social History Smoking Status: Former smoker Tobacco Type: Cigarettes and Pipe Age Started Using Tobacco: 18; Age Quit Using Tobacco: 28; packs per day: 0.5; Cigarettes Per Day: .; Second Hand Exposure: No; Hx Alcohol Use: Yes Alcohol type: wine Alcohol Intake Frequency: 4 or More x per/Week Hx Substance Use: No Preferred Language: Bolivian Communication Ability: Effective Visual Impairment: No Limitations Hearing Ability: Normal Shorthand Teacher Required: No Beliefs That Will Affect Care: None marital status: Current Living Situation: Spouse current occupational status: retired current occupation: Retired [employer] Other Information That Helps Us Care for You: No Feels Safe at Home: Yes Safety Concerns: Feels Safe At This Time Childhood Exposure to Second-Hand Smoke: No Diet Comment: regular caffeine: Yes (1.5 cups of coffee/day ) during the past year weight has: remained stable Dental Care, Regularly: Yes Physical Activity Frequency: Does not Exercise Seatbelt Use: always Sunscreen Use: Yes Assistive Devices: Glasses and Hearing Aid - Bilateral Allergies Allergies Allergy/AdvReac Type Severity Reaction Status Date / Time naproxen Allergy Unknown BROKE OUT Verified 07/22/22 13:29 IN A SWEAT shellfish derived Allergy Unknown HIVES Verified 07/22/22 13:29 oxycodone AdvReac Unknown HALLUCINATI Verified 07/22/22 13:29 ONS Home Meds Home Medications Medication Instructions Recorded Confirmed One A Day 1 tab PO DAILY 07/22/22 07/22/22 bumetanide 1 mg tablet 2 mg PO QAM 07/22/22 07/22/22 bupropion HCl 100 mg tablet,12 hr 200 mg PO DAILY 07/22/22 07/22/22 sustained-release calcium carbonate 600 mg-vitamin 1 tab PO BID 07/22/22 07/22/22 D3 10 mcg (400 unit) tablet (Calcium 600 + D(3)) cholecalciferol (vitamin D3) 25 25 mcg PO DAILY 07/22/22 07/22/22 mcg (1,000 unit) tablet (Vitamin D3) insulin glargine 100 unit/mL (3 0 unit subcut DIRECTED PRN 07/22/22 07/22/22 mL) subcutaneous pen (Lantus .high bsg Solostar U-100 Insulin) losartan 100 mg tablet (Cozaar) 100 mg PO DAILY 07/22/22 07/22/22 magnesium 500 mg tablet 500 mg PO BID 07/22/22 07/22/22 omeprazole 20 mg capsule,delayed 20 mg PO BID 07/22/22 07/22/22 release pravastatin 20 mg tablet 20 mg PO HS 07/22/22 07/22/22 prednisone 5 mg tablet 5 mg PO DAILY 07/22/22 07/22/22 semaglutide 0.25 mg or 0.5 mg (2 0.5 mg subcut .QWED 07/22/22 07/22/22 mg/1.5 mL) subcutaneous pen injector (Ozempic) tacrolimus 0.5 mg capsule, 0.5 mg PO QPM 07/22/22 07/22/22 immediate-release tacrolimus 0.5 mg capsule, 1 mg PO QAM 07/22/22 07/22/22 immediate-release tamsulosin 0.4 mg capsule 0.4 mg PO HS 07/22/22 07/22/22 terazosin 2 mg capsule 2 mg PO HS 07/22/22 07/22/22 vitamin B complex 1 tab PO DAILY 07/22/22 07/22/22 Results & Data (ED) Vital Signs Vital Signs - 24 hr 07/22/22 10:17 07/22/22 10:26 Temperature 37.7 C H Temperature Source Oral Pulse Rate 123 H 122 H Respiratory Rate 18 Respiratory Effort / Characteristics Non-Labored Spontaneous Respiratory Depth Normal Respiratory Pattern Regular Blood Pressure 136/88 Blood Pressure Mean 104 Blood Pressure Position Sitting Pulse Oximetry 94 Oxygen Delivery Method Room Air Sepsis Recent Fever Within 48 Hours No Sepsis New/Unexplained Change in Mental Status No Sepsis Action Taken by Nursing No Action Required Laboratory Data 07/23/22 03:16 07/23/22 03:16 Lab Results 07/22/22 07/22/22 07/22/22 Range/Units 11:17 11:17 11:17 WBC 10.06 (4.8-10.8) K/ul RBC 5.45 (4.70-6.10) M/uL Hgb 15.8 (14.0-18.0) g/dl Hct 47.4 (42.0-52.0) % MCV 87.0 (80.0-100.0) fL MCH 29.0 (25.0-34.0) pg MCHC 33.3 (32.0-36.0) g/dL RDW Std Deviation 42.6 (36.4-46.3) fL RDW Coeff of Miranda 13.5 (11.5-14.5) % Plt Count 231 (130-400) K/uL MPV 9.8 (9.4-12.4) fL Immature Gran % (Auto) 0.3 % Neut % (Auto) 89.6 % Lymph % (Auto) 4.0 % Woodford % (Auto) 5.7 % Eos % (Auto) 0.1 % Baso % (Auto) 0.3 % Neut # (Auto) 9.02 H (1.40-6.50) K/uL Lymph # (Auto) 0.40 L (1.2-3.4) K/uL Woodford # (Auto) 0.57 (0.11-0.59) K/uL Eos # (Auto) 0.01 (0-0.50) K/uL Baso # (Auto) 0.03 (0-0.2) K/uL Immature Gran # (Auto) 0.03 (0.01-0.20) K/uL Sodium 141 (136-145) mmol/L Potassium 4.3 (3.5-5.1) mmol/L Chloride 105 (98-107) mmol/L Carbon Dioxide 27 (21-32) mmol/L Anion Gap 9 (3-11) BUN 41 H (6-23) mg/dl Creatinine 1.50 H (0.6-1.4) mg/dl Est Cr Clr Drug Dosing 49.0 ml/min Est GFR ( Amer) 52.4 ml/min Est GFR (Non-Af Amer) 45.2 ml/min BUN/Creatinine Ratio 27.3 H (10-20) Glucose 131 H (70-99(Fasting)) mg/dl Lactate (0.4-2.0) mmol/L Calcium 9.3 (8.6-10.3) mg/dl Magnesium 2.2 (1.7-2.4) mg/dl Total Bilirubin 1.4 H (0.2-1.0) mg/dl Direct Bilirubin 0.3 H (0-0.2) mg/dl AST 36 (13-39) U/L ALT 21 (7-52) U/L Alkaline Phosphatase 140 H (34-104) U/L Troponin I High Sens 31.2 H (0-20) pg/ml Total Protein 7.8 (6.0-8.3) gm/dl Albumin 4.5 (3.4-5.0) gm/dl Procalcitonin 1.87 H (0-0.5) ng/ml Stl C. cayetanensis PCR (NotDetected) Stool Rotavirus A PCR (NotDetected) Stl Adenov F 40/41 PCR (NotDetected) Stool Astrovirus (PCR) (NotDetected) Stool Campylobacter PCR (NotDetected) Stl C. diff Tox B Gene (Neg) Stool Cryptosporidium PCR (NotDetected) Stl E.coli Shiga Tox PCR (NotDetected) Stl Enterotoxigenic E PCR (NotDetected) Stool EPEC (PCR) (NotDetected) Stool EAEC (PCR) (NotDetected) Stl E. histolytica PCR (NotDetected) Stool Giardia Lamblia PCR (NotDetected) Stool Salmonella PCR (NotDetected) Stool Sapovirus (PCR) (NotDetected) Stl P. shigelloides PCR (NotDetected) Stl Shigella/EIEC PCR (NotDetected) St Y.enterocolitica PCR (NotDetected) Stool Vibrio (PCR) (NotDetected) Stl Vibrio cholerae PCR (NotDetected) Stl Norovirus GI/GII PCR (NotDetected) SARS-CoV-2 (PCR) (Negative) Influenza Type A (PCR) (Neg) Influenza Type B (PCR) (Neg) RSV (RT-PCR) (Neg) 07/22/22 07/22/22 07/22/22 Range/Units 11:24 11:45 11:45 WBC (4.8-10.8) K/ul RBC (4.70-6.10) M/uL Hgb (14.0-18.0) g/dl Hct (42.0-52.0) % MCV (80.0-100.0) fL MCH (25.0-34.0) pg MCHC (32.0-36.0) g/dL RDW Std Deviation (36.4-46.3) fL RDW Coeff of Miranda (11.5-14.5) % Plt Count (130-400) K/uL MPV (9.4-12.4) fL Immature Gran % (Auto) % Neut % (Auto) % Lymph % (Auto) % Wood[place] % (Auto) % Eos % (Auto) % Baso % (Auto) % Neut # (Auto) (1.40-6.50) K/uL Lymph # (Auto) (1.2-3.4) K/uL Woodford # (Auto) (0.11-0.59) K/uL Eos # (Auto) (0-0.50) K/uL Baso # (Auto) (0-0.2) K/uL Immature Gran # (Auto) (0.01-0.20) K/uL Sodium (136-145) mmol/L Potassium (3.5-5.1) mmol/L Chloride (98-107) mmol/L Carbon Dioxide (21-32) mmol/L Anion Gap (3-11) BUN (6-23) mg/dl Creatinine (0.6-1.4) mg/dl Est Cr Clr Drug Dosing ml/min Est GFR ( Amer) ml/min Est GFR (Non-Af Amer) ml/min BUN/Creatinine Ratio (10-20) Glucose (70-99(Fasting)) mg/dl Lactate 2.4 H* (0.4-2.0) mmol/L Calcium (8.6-10.3) mg/dl Magnesium (1.7-2.4) mg/dl Total Bilirubin (0.2-1.0) mg/dl Direct Bilirubin (0-0.2) mg/dl AST (13-39) U/L ALT (7-52) U/L Alkaline Phosphatase (34-104) U/L Troponin I High Sens (0-20) pg/ml Total Protein (6.0-8.3) gm/dl Albumin (3.4-5.0) gm/dl Procalcitonin (0-0.5) ng/ml Stl C. cayetanensis PCR Not Detected (NotDetected) Stool Rotavirus A PCR Not Detected (NotDetected) Stl Adenov F 40/41 PCR Not Detected (NotDetected) Stool Astrovirus (PCR) Not Detected (NotDetected) Stool Campylobacter PCR Not Detected (NotDetected) Stl C. diff Tox B Gene Negative Cdiff Gene (Neg) Stool Cryptosporidium PCR Not Detected (NotDetected) Stl E.coli Shiga Tox PCR Not Detected (NotDetected) Stl Enterotoxigenic E PCR Not Detected (NotDetected) Stool EPEC (PCR) Not Detected (NotDetected) Stool EAEC (PCR) Not Detected (NotDetected) Stl E. histolytica PCR Not Detected (NotDetected) Stool Giardia Lamblia PCR Not Detected (NotDetected) Stool Salmonella PCR Not Detected (NotDetected) Stool Sapovirus (PCR) Not Detected (NotDetected) Stl P. shigelloides PCR Not Detected (NotDetected) Stl Shigella/EIEC PCR Not Detected (NotDetected) St Y.enterocolitica PCR Not Detected (NotDetected) Stool Vibrio (PCR) Not Detected (NotDetected) Stl Vibrio cholerae PCR Not Detected (NotDetected) Stl Norovirus GI/GII PCR DETECTED A* (NotDetected) SARS-CoV-2 (PCR) (Negative) Influenza Type A (PCR) (Neg) Influenza Type B (PCR) (Neg) RSV (RT-PCR) (Neg) 07/22/22 Range/Units 11:45 WBC (4.8-10.8) K/ul RBC (4.70-6.10) M/uL Hgb (14.0-18.0) g/dl Hct (42.0-52.0) % MCV (80.0-100.0) fL MCH (25.0-34.0) pg MCHC (32.0-36.0) g/dL RDW Std Deviation (36.4-46.3) fL RDW Coeff of Miranda (11.5-14.5) % Plt Count (130-400) K/uL MPV (9.4-12.4) fL Immature Gran % (Auto) % Neut % (Auto) % Lymph % (Auto) % Woodford % (Auto) % Eos % (Auto) % Baso % (Auto) % Neut # (Auto) (1.40-6.50) K/uL Lymph # (Auto) (1.2-3.4) K/uL [place]ford # (Auto) (0.11-0.59) K/uL Eos # (Auto) (0-0.50) K/uL Baso # (Auto) (0-0.2) K/uL Immature Gran # (Auto) (0.01-0.20) K/uL Sodium (136-145) mmol/L Potassium (3.5-5.1) mmol/L Chloride (98-107) mmol/L Carbon Dioxide (21-32) mmol/L Anion Gap (3-11) BUN (6-23) mg/dl Creatinine (0.6-1.4) mg/dl Est Cr Clr Drug Dosing ml/min Est GFR ( Amer) ml/min Est GFR (Non-Af Amer) ml/min BUN/Creatinine Ratio (10-20) Glucose (70-99(Fasting)) mg/dl Lactate (0.4-2.0) mmol/L Calcium (8.6-10.3) mg/dl Magnesium (1.7-2.4) mg/dl Total Bilirubin (0.2-1.0) mg/dl Direct Bilirubin (0-0.2) mg/dl AST (13-39) U/L ALT (7-52) U/L Alkaline Phosphatase (34-104) U/L Troponin I High Sens (0-20) pg/ml Total Protein (6.0-8.3) gm/dl Albumin (3.4-5.0) gm/dl Procalcitonin (0-0.5) ng/ml Stl C. cayetanensis PCR (NotDetected) Stool Rotavirus A PCR (NotDetected) Stl Adenov F 40/41 PCR (NotDetected) Stool Astrovirus (PCR) (NotDetected) Stool Campylobacter PCR (NotDetected) Stl C. diff Tox B Gene (Neg) Stool Cryptosporidium PCR (NotDetected) Stl E.coli Shiga Tox PCR (NotDetected) Stl Enterotoxigenic E PCR (NotDetected) Stool EPEC (PCR) (NotDetected) Stool EAEC (PCR) (NotDetected) Stl E. histolytica PCR (NotDetected) Stool Giardia Lamblia PCR (NotDetected) Stool Salmonella PCR (NotDetected) Stool Sapovirus (PCR) (NotDetected) Stl P. shigelloides PCR (NotDetected) Stl Shigella/EIEC PCR (NotDetected) St Y.enterocolitica PCR (NotDetected) Stool Vibrio (PCR) (NotDetected) Stl Vibrio cholerae PCR (NotDetected) Stl Norovirus GI/GII PCR (NotDetected) SARS-CoV-2 (PCR) NEGATIVE (Negative) Influenza Type A (PCR) Negative (Neg) Influenza Type B (PCR) Negative (Neg) RSV (RT-PCR) Negative (Neg) Administered Medications Bupropion HCl (Bupropion Sr 100 Mg Tabcr) 100 mg PO BID [facility] Stop: 08/21/22 20:59 Last Admin: 07/22/22 20:33 Dose: 100 mg Documented By: DEION Heparin Sodium (Porcine) (Heparin Sod 5,000 Unit/0.5 Ml Vial) 5,000 units SQ Q12 [facility] Stop: 08/21/22 20:59 Last Admin: 07/22/22 20:33 Dose: 5,000 units Documented By: DEION Cefepime HCl 2,000 mg/ Syringe 20 mls @ 5 mls/min IV Q12H [facility]; Protocol Stop: 07/24/22 17:59 Last Admin: 07/23/22 05:56 Dose: 5 mls/min Documented By: Admin: 07/22/22 17:07 Dose: 5 mls/min Documented By: AM Insulin Aspart (Insulin Aspart Per Unit Charge) 0 units SC ACHS MICK Stop: 08/21/22 16:29 Last Admin: 07/22/22 20:29 Dose: Not Given Documented By: Admin: 07/22/22 17:07 Dose: Not Given Documented By: AM Co-signed By: Insulin Glargine (Lantus Per Unit Charge) 5 units SQ BID [facility] Stop: 08/21/22 20:59 Last Admin: 07/22/22 20:29 Dose: 5 units Documented By: MTR Co-signed By: SALES TRAINING MANAGER Magnesium Oxide (Magnesium Oxide 400 Mg Tab) 400 mg PO BID [facility]ICK Stop: 08/21/22 20:59 Last Admin: 07/22/22 20:33 Dose: 400 mg Documented By: DEION Tacrolimus (Tacrolimus 0.5 Mg Cap) 0.5 mg PO QPM [facility]ICK Stop: 08/21/22 20:59 Last Admin: 07/22/22 20:33 Dose: 0.5 mg Documented By: DEION Tamsulosin HCl (Tamsulosin Hcl 0.4 Mg Cap) 0.4 mg PO QPM MICK Stop: 08/21/22 20:59 Last Admin: 07/22/22 20:33 Dose: 0.4 mg Documented By: DEION Terazosin HCl (Terazosin Hcl 1 Mg Cap) 2 mg PO HS [facility] Stop: 08/21/22 20:59 Last Admin: 07/22/22 20:32 Dose: 2 mg Documented By: MTR Trazodone HCl (Trazodone Hcl 50 Mg Tab) 50 mg PO HS [facility] Stop: 08/21/22 20:59 Last Admin: 07/22/22 20:33 Dose: 50 mg Documented By: MTR Discontinued Medications Acetaminophen (Acetaminophen 500 Mg Tab) 1,000 mg PO NOW STA Stop: 07/22/22 10:48 Last Admin: 07/22/22 11:40 Dose: 1,000 mg Documented By: QGV Sodium Chloride (Nss 1000ml) 1,000 mls @ 999 mls/hr IV .Q1H1M [facility]ICK Stop: 07/22/22 12:00 Last Infusion: 07/22/22 12:49 Dose: 0 mls/hr Documented By: Admin: 07/22/22 11:42 Dose: 999 mls/hr Documented By: QGV Piperacillin Sod/Tazobactam Sod (Zosyn) 4.5 gm in 120 mls @ 240 mls/hr IV NOW ONE Stop: 07/22/22 13:24 Last Infusion: 07/22/22 15:27 Dose: 0 mls/hr Documented By: Admin: 07/22/22 13:01 Dose: 240 mls/hr Documented By: QGV Vancomycin HCl 1,750 mg/ (Sodium Chloride) 535 mls @ 200 mls/hr IV NOW ONE Stop: 07/22/22 15:39 Last Admin: 07/22/22 13:51 Dose: 200 mls/hr Documented By: QGV Lactated Ringer's (Lr) 500 mls @ 999 mls/hr IV .Q31M ONE Stop: 07/22/22 13:57 Last Infusion: 07/22/22 15:27 Dose: 0 mls/hr Documented By: Admin: 07/22/22 13:51 Dose: 999 mls/hr Documented By: QGV Lactated Ringer's (Lr) 500 mls @ 100 mls/hr IV .Q5H ONE Stop: 07/22/22 20:27 Last Infusion: 07/22/22 20:32 Dose: 0 mls/hr Documented By: Admin: 07/22/22 15:32 Dose: 100 mls/hr Documented By: AM Ondansetron HCl (Ondansetron Inj 2 Mg/Ml 2 Ml Vial) 4 mg IV NOW STA Stop: 07/22/22 10:48 Last Admin: 07/22/22 11:40 Dose: 4 mg Documented By: QGV Prednisone (Prednisone 5 Mg Tab) 5 mg PO NOW ONE Stop: 07/22/22 12:14 Last Admin: 07/22/22 12:47 Dose: 5 mg Documented By: QGV Tacrolimus (Tacrolimus 1 Mg Cap) 1 mg PO NOW STA Stop: 07/22/22 12:14 Last Admin: 07/22/22 12:47 Dose: 1 mg Documented By: QGV Discharge Plan Visit Data Chief Complaint: Illness ED Provider: Glen Bonilla Discharge Problem: Sepsis, Acute gastroenteropathy due to Norovirus, Acute dehydration, Lactic acidosis Patient Disposition: Admitted As Inpatient Discharge Instructions Interventions: ED Discharge Assessment Last Done: 07/22/22 14:24
[2022-07-22] MEDS ORDERED: SODIUM CHLORIDE 0.9% 1000ML 1,000 ML IV SCH (11:00)
--- NOTE | 2022-07-22 11:24 | XRay Report ---
XR chest 1V portable HISTORY: 72 years-old Male Sepsis acute sepsis COMPARISON: 01/28/2022 TECHNIQUE: AP view of the chest FINDINGS: Cardiac silhouette is enlarged. Prior median sternotomy. No pneumothorax or overt pulmonary edema. Un changed right greater left pleural effusions with bibasilar atelectasis. Degenerative changes of the shoulders and spine. IMPRESSION: 1. Cardiomegaly without overt pulmonary edema. 2. Unchanged right greater than left pleural effusions with mild bibasilar atelectasis. ACT 112: Negative or not required by law. The above report was generated using voice recognition software. It may contain grammatical, syntax o r spelling errors. Electronically signed by: Chino Mancuso M.D. 07/22/2022 11:23 AM
[2022-07-22 12:01] LABS: Basophils # (auto) 0.03 K/uL (0-0.2); Basophils % (auto) 0.3 %; Eosinophils # (auto) 0.01 K/uL (0-0.50); Eosinophils % (auto) 0.1 %; Hematocrit (blood only) 47.4 % (42.0-52.0); Hemoglobin 15.8 g/dl (14.0-18.0); Immature Granulocytes # (auto) 0.03 K/uL (0.01-0.20); Immature Granulocytes % (auto) 0.3 %; Mean Corpuscular Hgb Conc 33.3 g/dL (32.0-36.0); Mean Platelet Volume 9.8 fL (9.4-12.4); Monocytes # (auto) 0.57 K/uL (0.11-0.59); Monocytes % (auto) 5.7 %; Neutrophils # (auto) 9.02 K/uL (1.40-6.50); Neutrophils % (auto) 89.6 %; Platelet Count 231 K/uL (130-400); RDW Coefficient of Variation 13.5 % (11.5-14.5); RDW Standard Deviation 42.6 fL (36.4-46.3); Red Blood Count 5.45 M/uL (4.70-6.10); White Blood Count 10.06 K/ul (4.8-10.8)
[2022-07-22] MEDS ORDERED: TACROLIMUS 1 MG CAP PO STA (12:13)
[2022-07-22] MEDS ORDERED: predniSONE 5 MG TAB PO ONE (12:13)
[2022-07-22 12:43] LABS: Albumin Level 4.5 gm/dl (3.4-5.0); Bilirubin Direct 0.3 mg/dl (0-0.2); Bilirubin,Total 1.4 mg/dl (0.2-1.0); Calcium 9.3 mg/dl (8.6-10.3); Magnesium 2.2 mg/dl (1.7-2.4); Potassium 4.3 mmol/L (3.5-5.1)
[2022-07-22 12:49] LABS: BUN Creatinine Ratio 27.3 (10-20); Est GFR (African American) 52.4 ml/min; Est GFR (Non-African American) 45.2 ml/min; Total Protein 7.8 gm/dl (6.0-8.3)
[2022-07-22] MEDS ORDERED: PIPERACILLIN/TAZOBACTAM 4.5 GM/120 ML BAG IV ONE (12:55)
[2022-07-22] MEDS ORDERED: VANCOMYCIN HCL 1,750 MG in SODIUM CHLORIDE 0.9% 500 ML IV ONE (12:59)
[2022-07-22] MEDS ORDERED: VANCOMYCIN CONSULT ACTIVE PRN ×2 (12:59→14:53)
[2022-07-22 13:08] LABS: Influenza A virus by PCR Negative (Neg); Influenza B virus by PCR Negative (Neg); RSV by PCR Negative (Neg); SARS CoV2 RNA(COVID-19) Ceph NEGATIVE (Negative)
--- NOTE | 2022-07-22 13:14 | History & Physical Report ---
Date of Service July 22, 2022 Assessment & Plan (1) Sepsis: Plan: Arian is a 72-year-old male with a past medical history of CHF, CKD 3, heart transplant 2007, hypertension, GERD, DM, BPH who presents to the ER with 2 days of nausea/vomiting/diarrhea and progressive weakness causing him to sit down on the floor. He has not had chest pain or shortness of breath, and has not aspirated to his knowledge. He is having diarrhea approximately every hour, and has had palpitations. His has similar symptoms. Sepsis, suspect gastroenteritis Sinus tachycardia, temperature 37.7 on admission No leukocytosis. Procalcitonin is elevated at 1.87 with elevated lactate of 2.4 on admission Patient with 2 days of diarrhea and nonbloody/nonbilious vomiting which began 2 days after his had similar symptoms and which are slowly improving. Suspect viral gastroenteritis with severe volume depletion leading to elevated lactate, tachycardia, and elevated Pro-Kulwinder. Patient is immunosuppressed on tacrolimus which is continued given his history of cardiac transplant and concern for high risk of rejection on previous notes. Blood cultures pending, received empiric Zosyn/vancomycin. We will continue cefepime/vancomycin pending cultures and PCR results Stool PCR pending Received 1 L NSS in ER, additional boluses as needed based on clinical reassessment. 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 R>L pleural effusions similar to prior, mild bibasilar atalectasis. Clinically volume depleted with GENNY and elevated lactate, cautious fluids and bolus PRN Admitting EKG: Sinus tachycardia, right bundle branch block, QTc 486. Similar morphology compared to January 2022. S/p heart transplant Transplant 07/12/2007 2/2 idiopathic dilated cardiomyopathy Follows with [facility] cardiology, last seen 02/2022. At that time echo review showed right heart dilation with severe tricuspid insufficiency, similar to prior exam with low EF. TTE 01/2022: LV SF 40-45%. Mild interventricular septal flattening consistent with mild RV volume/pressure overload. Septal motion consistent with postoperative function. Severe LAD. Severe RAD. Mild mitral regurg. Moderate to severe tricuspid regurg, RVSP 40-50 mm. 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 Known LBBB Continue chronic prednisone Continue tacrolimus 0.5 mg in the evening, 1 mg in the morning, level pending GENNY on CKD3 Baseline creatinine approximately 1.4 Admitting creatinine: 1.5 Prerenal azotemia versus GENNY in the setting of Suspect mild gastroenteritis. Fluids as previously noted. Trend BMP daily. Renally adjust medications for creatinine clearance of 49, trend - Losartan, bumex held S/p right upper lobe wedge resection 2/2 persistent pneumomediastinal air leak in the setting of cardiac transplantation. Noted BPH - Continue FLomax/tamsulosin Type II DM Hold semaglutide On glargine 5-10 units home dosing Converted to weight-based basal bolus while inpatient Goal BSG [id number] Glucose checks AC/at bedtime DVT PPx: SCDs, heparin SQ 2/2 GENNY Diet: DM2, HH Dispo: PCU CODE: Full (2) CHF (congestive heart failure): (3) CKD (chronic kidney disease) stage 3, GFR 30-59 ml/min: (4) Status post heart transplant: (5) Hypertension: (6) Hypercholesteremia: (7) GERD (gastroesophageal reflux disease): (8) Diabetes mellitus: History of Present Illness Primary Care Provider: Guillermo Vega, III, MARKO Arian presents to the ER for nausea, vomiting, and diarrhea of 2 days. His had simlar sx which began 2 days prior to his. Wifes symptoms are gradually improving. Arian denies fevers, chills, or sweats. He has bene having diarrhea every 2-3 hours now, was going ~4 times per day yesterday. Completely liquid. No blood. No melena. +vomiting, yesterday and through the night half a dozen times in total. No blood. Nothing black. No vomiting in ER, last emesis was this morning before coming in. No lightheadedness, syncope, or presyncope. Endorses weakness globally, RLB a little achy. Legs are weak, but symmetryical. Slightly tremulous, reports has been shakey for years and comes and goes. R eye with subconjectival hematoma post retinal detachment repair. Vision is normal in that eye post repair. No glaucoma, has not needed any treatment for IOP. Follows with opthamology. Per patient post heart transplant. Denies history of rejection. Takes prednisone and tacrolimus. Tac 1mg morning, 0.5even. Pred 5mg daily. Does not take BB. No hx bradycardia or hypotension. Hx of mild tachycardia at baseline 2/2 trasnplant. No hx afib. Medical History: Reviewed Medications: Reviewed Surgical History: Reviewed Family history: Reviewed Allergies: Reviewed Social History: Denies tobacco/alcohol use Code Status: Full code Allergies Allergy/AdvReac Type Severity Reaction Status Date / Time naproxen Allergy Unknown BROKE OUT Verified 05/17/22 13:21 IN A SWEAT shellfish derived Allergy Unknown HIVES Verified 05/17/22 13:21 oxycodone AdvReac Unknown HALLUCINATI Verified 05/17/22 13:21 ONS Home Medications Medication Instructions Recorded Confirmed Type losartan 100 mg tablet 100 mg PO QAM 10/17/18 05/17/22 History magnesium oxide 400 mg (241.3 mg 400 mg PO BID 10/17/18 05/17/22 History magnesium) tablet pravastatin 20 mg tablet 20 mg PO HS 10/17/18 05/17/22 History multivitamin 1 tab PO DAILY 11/07/18 05/17/22 History omeprazole 20 mg capsule,delayed 20 mg PO BID 11/07/18 05/17/22 History release tacrolimus 0.5 mg capsule, 1 mg PO QAM 11/07/18 05/17/22 History immediate-release tamsulosin 0.4 mg capsule 0.4 mg PO QPM 05/10/19 05/17/22 History terazosin 2 mg capsule 2 mg PO HS 06/08/19 05/17/22 History insulin glargine 100 unit/mL (3 5 - 10 unit subcut DAILY PRN HIGH 09/17/20 05/17/22 History mL) subcutaneous pen (Lantus BLOOD SUGAR Solostar U-100 Insulin) prednisone 5 mg tablet 5 mg PO QAM 09/17/20 05/17/22 History calcium carbonate 600 mg calcium 600 mg PO BID 06/09/21 05/17/22 History (1,500 mg) tablet (Calcium) bupropion HCl 100 mg tablet,12 hr 100 mg PO BID #180 ea 10/19/21 05/17/22 Rx sustained-release (Wellbutrin SR) semaglutide 0.25 mg or 0.5 mg (2 0.5 mg (0.4 mL) subcut WEEKLY 90 10/27/21 05/17/22 Rx mg/1.5 mL) subcutaneous pen days #36 mL injector (Ozempic) cyanocobalamin (vitamin B-12) 1,000 mcg PO DAILY 01/29/22 05/17/22 History 1,000 mcg tablet (Vitamin B-12) tacrolimus 0.5 mg capsule, 0.5 mg PO QPM 01/29/22 05/17/22 History immediate-release bumetanide 1 mg tablet 2 mg PO DAILY 02/01/22 05/17/22 History fluocinolone 0.025 % topical 1 applic topical BID #60 grams 02/17/22 05/17/22 Rx ointment trazodone 50 mg tablet 50 mg PO HS #90 tabs 05/17/22 05/17/22 Rx Past Med/Surg History Medical History Basosquamous carcinoma of skin HX Bladder cancer (1994) S / HX SURGERY AND CHEMO CHF (congestive heart failure) s/p heart transplant CKD (chronic kidney disease) stage 3, GFR 30-59 ml/min PT DENIES BEING AWARE OF ANY KIDNEY DISEASE Depression Diabetes mellitus Fluid retention ANKLES, MED CONTROLS GERD (gastroesophageal reflux disease) Hearing difficulty Hypercholesteremia Hypertension Intracranial hemorrhage PER PT HX FALL FEW YRS AGO, FELL ON ICE - BLOOD ON BRAIN AND IT GOT ABSORBED Ischemic cardiomyopathy resolved s/p heart transplant Pneumonia 05/2019 - has since resolved RBBB (right bundle branch block) resolved s/p heart transplant Status post heart transplant (2007) HX 2008 Tubular adenoma of colon ? Surgical History History of bladder surgery (1994) [place] [facility] [place] Mohs micrographic surgery for skin cancer (02/26/20) Facial / Left Tragus History of umbilical hernia repair (2011) S/P LASIK (laser assisted in situ keratomileusis) of both eyes S/P left cataract extraction 2/23/22 Family History Father , Passed age 82 of "heart" Squamous cell cancer of skin of crown Mother , Passed age 82 of unknown No problems noted. Sister No problems noted. Sister No problems noted. Son No problems noted. Daughter No problems noted. Other Family history of diabetes mellitus in father Denies family history of Colon cancer Ovarian cancer Prostate cancer Myocardial infarction Breast cancer Social History Smoking Status: Never smoker Tobacco Type: Cigarettes and Pipe Age Started Using Tobacco: 18; Age Quit Using Tobacco: 28; packs per day: 0.5; Cigarettes Per Day: .; Second Hand Exposure: No; Hx Alcohol Use: Yes Alcohol type: wine Alcohol Intake Frequency: 4 or More x per/Week Hx Substance Use: No Preferred Language: French Communication Ability: Effective Visual Impairment: No Limitations Hearing Ability: Normal Chief Strategy Officer Required: No Beliefs That Will Affect Care: None marital status: Current Living Situation: Spouse current occupational status: retired current occupation: Retired [employer] Feels Safe at Home: Yes Childhood Exposure to Second-Hand Smoke: No Diet Comment: regular caffeine: Yes (1.5 cups of coffee/day ) during the past year weight has: remained stable Dental Care, Regularly: Yes Physical Activity Frequency: Does not Exercise Seatbelt Use: always Sunscreen Use: Yes Assistive Devices: None Review of Systems Review of Systems: All systems reviewed & are unremarkable except as noted in HPI & below Physical Exam Physical Exam: General: A&Ox3. NAD. Cooperative. HEENT: Atraumatic, normocephalic. Vision/hearing grossly itnact. R eye with subconjunctival hemmorhage. PERLAA. Pulm: CTAB A&P. -wheezes, -rales, -rhonchi. Symmetrical chest rise. No increased work of breathing. No respiratory distress. Cardiac: tachycardic, +sm. Radial pulses intact and symmetrical. Abdominal: Nontender, nondistended, soft. BS present. Ext: Warm, dry. No erythema. Moves all exrtremities equally. Results & Data Results & Data Vital Signs (Past 12 Hours) Vital Signs Temp Pulse Resp BP Pulse Ox O2 Del Method 07/22/22 10:26 122 H 07/22/22 10:17 37.7 C H 123 H 18 136/88 94 Room Air PG Care Time/CCT Total # of Minutes Spent Total Time Spent with Patient: Total time spent is greater than 50% in coordination of care (as documented) at patient's floor/unit and/or counseling patient: Coding Level of Care Code 47083 INT INP/OBS CARE 3/75MIN Diagnoses Sepsis A41.9 CHF (congestive heart failure) I50.9 Heart failure type: unspecified Heart failure chronicity: unspecified CKD (chronic kidney disease) stage 3, GFR 30-59 ml/min N18.3 Status post heart transplant Z94.1 Hypertension I10 Hypertension type: essential hypertension Hypercholesteremia E78.00 GERD (gastroesophageal reflux disease) K21.9 Esophagitis presence: without esophagitis Diabetes mellitus E11.9; Z79.4 Diabetes mellitus type: type 2 Diabetes mellitus long term care pharmacist insulin use: with long term care pharmacist use Diabetes mellitus complication status: without complication (2) CHF (congestive heart failure) Heart failure type: unspecified Heart failure chronicity: unspecified Qualified Code(s): I50.9 - Heart failure, unspecified (5) Hypertension Hypertension type: essential hypertension Qualified Code(s): I10 - Essential (primary) hypertension (7) GERD (gastroesophageal reflux disease) Esophagitis presence: without esophagitis Qualified Code(s): K21.9 - Gastro-esophageal reflux disease without esophagitis (8) Diabetes mellitus Diabetes mellitus type: type 2 Diabetes mellitus long term care pharmacist insulin use: with alf use Diabetes mellitus complication status: without complication Qualified Code(s): E11.9 - Type 2 diabetes mellitus without complications; Z79.4 - long term care pharmacist (current) use of insulin
[2022-07-22 13:17] LABS: Troponin I High Sensitivity 31.2 pg/ml (0-20)
[2022-07-22] MEDS ORDERED: LACTATED RINGER'S 500 ML IV ONE ×2 (13:27→15:28)
[2022-07-22 13:53] LABS: Adenovirus F 40/41 PCR Not Detected (NotDetected); Astrovirus PCR Not Detected (NotDetected); Campylobacter PCR Not Detected (NotDetected); Cryptosporidium PCR Not Detected (NotDetected); Cyclospora cayetanensis PCR Not Detected (NotDetected); Entamoeba histolytica PCR Not Detected (NotDetected); Enteroaggregative E.coli(EAEC) Not Detected (NotDetected); Enteropathogenic E.coli (EPEC) Not Detected (NotDetected); Enterotoxigenic E.coli (ETEC) Not Detected (NotDetected); Giardia lamblia PCR Not Detected (NotDetected); Plesiomonas shigelloides PCR Not Detected (NotDetected); Rotavirus A PCR Not Detected (NotDetected); Salmonella PCR Not Detected (NotDetected); Sapovirus PCR Not Detected (NotDetected); Shiga-like Toxin E.coli (STEC) Not Detected (NotDetected); Shigella/Enteroinvasive E.coli Not Detected (NotDetected); Vibrio cholerae PCR Not Detected (NotDetected); Vibrio species PCR Not Detected (NotDetected); Yersinia enterocolitica PCR Not Detected (NotDetected)
[2022-07-22 14:02] LABS: Norovirus GI/GII PCR DETECTED (NotDetected)
[2022-07-22 14:41] LABS: Appearance Urine Clear (Clear); Bacteria Urine Automated Negative (Negative); Bilirubin Urine Negative (Negative); Blood Urine 1+ (Negative); Color Urine Dark Yellow; Glucose Urine UA Negative (Negative); Ketones Urine Trace (Negative); Leukocyte Esterase Urine Trace (Negative); Nitrite Urine Negative (Negative); Protein Urine 1+ (Negative); RBC Urine Automated 0-4 /hpf (0-4); Specific Gravity Urine 1.025 (1.000-1.030); Urobilinogen Urine Negative (Negative)
[2022-07-22] MEDS ORDERED: ACETAMINOPHEN 325 MG TAB PO PRN (14:53)
[2022-07-22] MEDS ORDERED: GLUCAGON FOR INJ 1 MG VIAL SQ PRN (16:08)
[2022-07-22] MEDS ORDERED: CARBOHYDRATES FOR HYPOGLYCEMIA PO PRN (16:08)
[2022-07-22] MEDS ORDERED: DEXTROSE 50% 50 ML SYRINGE IV PRN (16:08)
[2022-07-22] MEDS ORDERED: GLUCOSE 40% GEL 15 GM TUBE PO PRN (16:08)
[2022-07-22] MEDS ORDERED: GLUCOSE 10 TAB/TUBE PO PRN (16:08)
--- NOTE | 2022-07-22 16:45 | XCELERA ---
[id number]
[2022-07-22] MEDS: INSULIN ASPART PER UNIT CHARGE SC SCH ×2 (17:07→20:29)
[2022-07-22] MEDS: CEFEPIME 2,000 MG in SYRINGE 0 ML IV SCH (17:07)
[2022-07-22] MEDS: LANTUS PER UNIT CHARGE SQ SCH (20:29)
[2022-07-22] MEDS: TERAZOSIN HCL 1 MG CAP PO SCH (20:32)
[2022-07-22] MEDS: traZODone HCL 50 MG TAB PO SCH (20:33)
[2022-07-22] MEDS: HEPARIN SOD 5,000 UNIT/0.5 ML VIAL SQ SCH (20:33)
[2022-07-22] MEDS: buPROPion SR 100 MG TABCR PO SCH (20:33)
[2022-07-22] MEDS: TACROLIMUS 0.5 MG CAP PO SCH (20:33)
[2022-07-22] MEDS: MAGNESIUM OXIDE 400 MG TAB PO SCH (20:33)
[2022-07-22] MEDS: TAMSULOSIN HCL 0.4 MG CAP PO SCH (20:33)
[2022-07-22] MEDS ORDERED: VANCOMYCIN HCL 1,250 MG in SODIUM CHLORIDE 0.9% 250 ML IV SCH (21:00)
[2022-07-22] MEDS ORDERED: VANCOMYCIN HCL 1,250 MG in SODIUM CHLORIDE 0.9% 500 ML IV SCH (23:00)
[2022-07-23 03:50] LABS: Basophils # (auto) 0.01 K/uL (0-0.2); Basophils % (auto) 0.2 %; Eosinophils # (auto) 0.01 K/uL (0-0.50); Eosinophils % (auto) 0.2 %; Hematocrit (blood only) 39.9 % (42.0-52.0); Hemoglobin 13.1 g/dl (14.0-18.0); Immature Granulocytes # (auto) 0.03 K/uL (0.01-0.20); Immature Granulocytes % (auto) 0.5 %; Lymphocytes # (auto) 0.71 K/uL (1.2-3.4); Lymphocytes % (auto) 11.7 %; Mean Corpuscular Hemoglobin 28.7 pg (25.0-34.0); Mean Corpuscular Hgb Conc 32.8 g/dL (32.0-36.0); Mean Corpuscular Volume 87.5 fL (80.0-100.0); Mean Platelet Volume 10.1 fL (9.4-12.4); Monocytes # (auto) 0.56 K/uL (0.11-0.59); Monocytes % (auto) 9.2 %; Neutrophils # (auto) 4.75 K/uL (1.40-6.50); Neutrophils % (auto) 78.2 %; Platelet Count 180 K/uL (130-400); RDW Coefficient of Variation 13.7 % (11.5-14.5); RDW Standard Deviation 43.1 fL (36.4-46.3); Red Blood Count 4.56 M/uL (4.70-6.10); White Blood Count 6.07 K/ul (4.8-10.8)
[2022-07-23 04:07] LABS: BUN Creatinine Ratio 27.8 (10-20); Creatinine Clr Calc Pharmacy 45.4 ml/min; Est GFR (African American) 47.7 ml/min; Est GFR (Non-African American) 41.2 ml/min; Magnesium 2.1 mg/dl (1.7-2.4); Potassium 3.9 mmol/L (3.5-5.1)
[2022-07-23] MEDS: CEFEPIME 2,000 MG in SYRINGE 0 ML IV SCH (05:56)
--- NOTE | 2022-07-23 05:59 | Electrocardiogram Report ---
Test Reason : Blood Pressure : / mmHG Vent. Rate : 123 BPM Atrial Rate : 123 BPM P-R Int : 160 ms QRS Dur : 156 ms QT Int : 340 ms P-R-T Axes : 056 -44 087 degrees QTc Int : 486 ms Probable Sinus tachycardia Left axis deviation Right bundle branch block Inferior infarct (cited on or before 05-AUG-2007) Anterior infarct , age undetermined T wave abnormality, consider lateral ischemia Abnormal ECG When compared with ECG of 29-JAN-2022 02:16, No significant change Confirmed by Yohan Pan ([id number] on 07/23/2022 5:59:07 AM Referred By: REFERRED SELF Confirmed By:Yohan Pan
--- NOTE | 2022-07-23 08:42 | Hospitalist Progress Note ---
Date of Service July 23, 2022 Assessment & Plan (1) Sepsis: Plan: Arian is a 72-year-old male with a past medical history of CHF, CKD 3, heart transplant 2007, hypertension, GERD, DM, BPH who presents to the ER with 2 days of nausea/vomiting/diarrhea and progressive weakness causing him to sit down on the floor. He has not had chest pain or shortness of breath, and has not aspirated to his knowledge. He is having diarrhea approximately every hour, and has had palpitations. His has similar symptoms. Sepsis, acute high risk, norovirus gastroenteritis as source No leukocytosis. Procalcitonin is elevated at 1.87 with elevated lactate of 2.4 on admission Patient is immunosuppressed on tacrolimus which is continued given his history of cardiac transplant and concern for high risk of rejection on previous notes. Received 1 L NSS in ER, additional boluses as needed based on clinical reassessment. 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 previous cardioversion, not on ocean transportation intermediary anticoagulation Known LBBB stress steroids and then return to chronic prednisone Continue tacrolimus 0.5 mg in the evening, 1 mg in the morning, level pending CKD3, moderate risk - Losartan, bumex held S/p right upper lobe wedge resection 2/2 persistent pneumomediastinal air leak in the setting of cardiac transplantation. resolved in past BPH chronic and stable - Continue FLomax/tamsulosin Type II DM chronic and stable Hold semaglutide On glargine 5-10 units home dosing Converted to weight-based basal bolus while inpatient Goal BSG [id number] Glucose checks AC/at bedtime DVT PPx: SCDs, heparin SQ 2/2 GENNY CODE: Full (2) CHF (congestive heart failure): (3) CKD (chronic kidney disease) stage 3, GFR 30-59 ml/min: (4) Status post heart transplant: (5) Diabetes mellitus: Admission and Anticipated Discharge Date Admission Date: July 22, 2022 Subjective pt is feeling better, did have stress steroids today, gastroenteritis with norovirus is improving Physical Exam Physical Exam: Patient is awake alert he is improved by his own account He looks much older than stated age His cardiac exam is regular although there is some concern of a flutter on the monitor Lungs are clear but decreased at the bases Abdomen is with hyperactive bowel sounds he is soft Results & Data Results & Data Vital Signs (Past 12 Hours) Vital Signs Temp Pulse Pulse Pulse Resp BP Pulse Ox 07/23/22 08:01 98.4 F 100 H 17 108/74 94 07/23/22 03:40 98.4 F 93 H 18 95/61 L 94 07/22/22 21:59 100 H 07/22/22 22:59 97.9 F 95 H 18 108/73 92 O2 Del Method 07/23/22 08:01 Room Air 07/23/22 03:40 Room Air 07/22/22 21:59 07/22/22 22:59 Room Air Laboratory Results Reviewed CBC Reviewed PRP Reviewed troponin Diagnostic Findings spoke to cardiology to review am ecg to determine if atrial flutter present PG Care Time/CCT Total # of Minutes Spent Total Time Spent with Patient: Total time spent is greater than 50% in coordination of care (as documented) at patient's floor/unit and/or counseling patient: Coding Level of Care Code 30398 SUB INP/OBS CARE 2MIN Diagnoses Sepsis A41.9 CHF (congestive heart failure) I50.9 Heart failure chronicity: unspecified Heart failure type: unspecified CKD (chronic kidney disease) stage 3, GFR 30-59 ml/min N18.3 Status post heart transplant Z94.1 Diabetes mellitus E11.9; Z79.4 Diabetes mellitus complication status: without complication Diabetes mellitus ocean transportation intermediary insulin use: with residential use Diabetes mellitus type: type 2 (2) CHF (congestive heart failure) Heart failure chronicity: unspecified Heart failure type: unspecified Qualified Code(s): I50.9 - Heart failure, unspecified (5) Diabetes mellitus Diabetes mellitus complication status: without complication Diabetes mellitus residential insulin use: with residential use Diabetes mellitus type: type 2 Qualified Code(s): E11.9 - Type 2 diabetes mellitus without complications; Z79.4 - ocean transportation intermediary (current) use of insulin
[2022-07-23] MEDS: predniSONE 5 MG TAB PO SCH (08:47)
[2022-07-23] MEDS: MAGNESIUM OXIDE 400 MG TAB PO SCH ×2 (08:47→20:57)
[2022-07-23] MEDS: TACROLIMUS 1 MG CAP PO SCH (08:48)
[2022-07-23] MEDS: PANTOprazole 40 MG TAB PO SCH (08:49)
[2022-07-23] MEDS: buPROPion SR 100 MG TABCR PO SCH ×2 (08:49→20:56)
[2022-07-23] MEDS: HEPARIN SOD 5,000 UNIT/0.5 ML VIAL SQ SCH ×2 (08:51→20:57)
[2022-07-23] MEDS: INSULIN ASPART PER UNIT CHARGE SC SCH ×4 (09:22→20:53)
[2022-07-23] MEDS: LANTUS PER UNIT CHARGE SQ SCH ×2 (09:22→20:53)
[2022-07-23] MEDS: HYDROCORTISONE SOD 50 MG in SYRINGE 0 ML IV SCH ×2 (14:52→21:00)
[2022-07-23] MEDS: TERAZOSIN HCL 1 MG CAP PO SCH (20:56)
[2022-07-23] MEDS: TACROLIMUS 0.5 MG CAP PO SCH (20:56)
[2022-07-23] MEDS: traZODone HCL 50 MG TAB PO SCH (20:57)
[2022-07-23] MEDS: TAMSULOSIN HCL 0.4 MG CAP PO SCH (20:57)
[2022-07-24] MEDS: HYDROCORTISONE SOD 50 MG in SYRINGE 0 ML IV SCH (05:55)
--- NOTE | 2022-07-24 08:28 | Electrocardiogram Report ---
Test Reason : Blood Pressure : / mmHG Vent. Rate : 096 BPM Atrial Rate : 096 BPM P-R Int : 186 ms QRS Dur : 168 ms QT Int : 426 ms P-R-T Axes : 017 -23 045 degrees QTc Int : 538 ms Normal sinus rhythm Right bundle branch block Old Inferior infarct (cited on or before 05-AUG-2007) Diffuse Nonspecific T wave abnormality Abnormal ECG When compared with ECG of 22-JUL-2022 10:14, No significant change Confirmed by Tree Kc ([id number]) on 07/24/2022 8:28:04 AM Referred By: REFERRED SELF Confirmed By:Tree Kc
[2022-07-24] MEDS: MAGNESIUM OXIDE 400 MG TAB PO SCH ×2 (08:34→20:43)
[2022-07-24] MEDS: buPROPion SR 100 MG TABCR PO SCH ×2 (08:34→20:43)
[2022-07-24] MEDS: TACROLIMUS 1 MG CAP PO SCH (08:35)
[2022-07-24] MEDS: HEPARIN SOD 5,000 UNIT/0.5 ML VIAL SQ SCH ×2 (08:35→20:44)
[2022-07-24] MEDS: PANTOprazole 40 MG TAB PO SCH (08:35)
[2022-07-24] MEDS: predniSONE 5 MG TAB PO SCH (08:35)
[2022-07-24 08:41] LABS: BUN Creatinine Ratio 28.1 (10-20); Calcium 8.4 mg/dl (8.6-10.3); Creatinine Clr Calc Pharmacy 42.7 ml/min; Est GFR (African American) 44.7 ml/min; Est GFR (Non-African American) 38.6 ml/min; Potassium 4.5 mmol/L (3.5-5.1)
[2022-07-24] MEDS: LANTUS PER UNIT CHARGE SQ SCH ×2 (08:41→20:41)
[2022-07-24] MEDS: INSULIN ASPART PER UNIT CHARGE SC SCH ×4 (08:42→20:41)
[2022-07-24] MEDS ORDERED: PRAVASTATIN SOD 20 MG TAB PO SCH (17:00)
--- NOTE | 2022-07-24 18:51 | Hospitalist Progress Note ---
Date of Service July 24, 2022 Assessment & Plan (1) Sepsis: Plan: Arian is a 72-year-old male with a past medical history of CHF, CKD 3, heart transplant 2007, hypertension, GERD, DM, BPH who presents to the ER with 2 days of nausea/vomiting/diarrhea and progressive weakness. Sepsis, acute high risk, norovirus gastroenteritis as source No leukocytosis. Procalcitonin is elevated at 1.87 with elevated lactate of 2.4 on admission Patient is immunosuppressed on tacrolimus which is continued given his history of cardiac transplant and concern for high risk of rejection on previous notes. Aggressive boluses / initial 30 mg/kg body weight resuscitation in ER deferred due to heart failure with reduced ejection fraction --> has clinically improved and is medically stable at this point Heart failure with reduced ejection fraction, chronic stable but imparts moderate risk in acute illness With history of heart transplant Bumex and Losartan held on admission due to low blood pressure Continue pravastatin not on BB S/p heart transplant Transplant 07/12/2007 2/2 idiopathic dilated cardiomyopathy, episodes of cellular rejection treated with steroid pulses,prograft, tacrolimus, and Bella limits in the past history atrial flutter noted 2010. previous cardioversion, not on fci anticoagulation Known LBBB stress steroids on arrival--> now back to chronic prednisone dose Continue tacrolimus 0.5 mg in the evening, 1 mg in the morning, level pending CKD3, moderate risk - Losartan, bumex held - despite hold the above and his clinical improvement, his Cr is trending up (1.44 --> 1.62 --> 1.71) - Uncertain if the Cr is 'lagging' behind his clinical improvement or if there is another explanation for why it is rising. He denies any issues with urinating - I advised him to try to increase his oral intake of fluids today --> BMP ordered in the am. - If it continues to rise, recommend calculating a FeNa and evaluating for possible obstruction (he is on flomax) S/p right upper lobe wedge resection 2/2 persistent pneumomediastinal air leak in the setting of cardiac transplantation. resolved in past BPH chronic and stable - Continue FLomax/tamsulosin Type II DM chronic and stable Hold semaglutide On glargine 5-10 units home dosing Converted to weight-based basal bolus while inpatient Goal BSG [id number] Glucose checks AC/at bedtime DVT PPx: SCDs, heparin SQ 2/2 GENNY CODE: Full PT/OT --> recommend straight home (2) CHF (congestive heart failure): (3) CKD (chronic kidney disease) stage 3, GFR 30-59 ml/min: (4) Status post heart transplant: (5) Diabetes mellitus: Admission and Anticipated Discharge Date Admission Date: July 22, 2022 Subjective Patient wants to go home but feels weak. Review of Systems Review of Systems: All systems reviewed & are unremarkable except as noted in HPI & below Physical Exam Physical Exam: General Appearance: well-developed, well-nourished adult male in no acute distress HEENT: NC/AT. Sclera anicteric. CV: RRR. S1 and S2 appreciated. No murmurs, clicks, gallops or rubs. Lungs: CTA in all lung weinberg bilaterally with equal air movement. No wheezes, rales, rhonchi or crackles. Abdomen: Soft, non-tender, non-distended. Normoactive BS in all 4 quadrants. Skin: warm, dry, and intact Neuro: AAO x 3. No focal deficits. Psych: Appropriate mood and affect. Results & Data Results & Data Vital Signs (Past 12 Hours) Vital Signs Temp Pulse Pulse Resp BP Pulse Ox Pulse Ox 07/24/22 16:00 36.5 C 88 18 126/84 97 07/24/22 14:00 97 07/24/22 11:27 36.5 C 88 18 122/86 96 07/24/22 07:56 36.5 C 89 20 120/90 95 07/24/22 07:00 91 H O2 Del Method O2 Del Method 07/24/22 16:00 Room Air 07/24/22 14:00 Room Air 07/24/22 11:27 Room Air 07/24/22 07:56 Room Air 07/24/22 07:00 PG Care Time/CCT Total # of Minutes Spent Total Time Spent with Patient: Total time spent is greater than 50% in coordination of care (as documented) at patient's floor/unit and/or counseling patient: Coding Level of Care Code 89274 SUB INP/OBS CARE 2/35MIN Diagnoses Sepsis A41.9 CHF (congestive heart failure) I50.9 Heart failure chronicity: unspecified Heart failure type: unspecified CKD (chronic kidney disease) stage 3, GFR 30-59 ml/min N18.3 Status post heart transplant Z94.1 Diabetes mellitus E11.9; Z79.4 Diabetes mellitus complication status: without complication Diabetes mellitus vermin exterminator insulin use: with vermin exterminator use Diabetes mellitus type: type 2 (2) CHF (congestive heart failure) Heart failure chronicity: unspecified Heart failure type: unspecified Qualified Code(s): I50.9 - Heart failure, unspecified (5) Diabetes mellitus Diabetes mellitus complication status: without complication Diabetes mellitus vermin exterminator insulin use: with vermin exterminator use Diabetes mellitus type: type 2 Qualified Code(s): E11.9 - Type 2 diabetes mellitus without complications; Z79.4 - [facility] (current) use of insulin
[2022-07-24] MEDS: TACROLIMUS 0.5 MG CAP PO SCH (20:43)
[2022-07-24] MEDS: TAMSULOSIN HCL 0.4 MG CAP PO SCH (20:43)
[2022-07-24] MEDS: TERAZOSIN HCL 1 MG CAP PO SCH (20:43)
[2022-07-24] MEDS: traZODone HCL 50 MG TAB PO SCH (20:47)
[2022-07-25] MEDS: INSULIN ASPART PER UNIT CHARGE SC SCH ×2 (07:36→11:39)
[2022-07-25 07:45] VITALS: O2SAT 97
[2022-07-25 07:56] LABS: BUN Creatinine Ratio 32.6 (10-20); Calcium 8.5 mg/dl (8.6-10.3); Creatinine Clr Calc Pharmacy 51.3 ml/min; Est GFR (African American) 55.1 ml/min; Est GFR (Non-African American) 47.5 ml/min; Potassium 4.2 mmol/L (3.5-5.1)
[2022-07-25] MEDS: LANTUS PER UNIT CHARGE SQ SCH (08:25)
[2022-07-25] MEDS: predniSONE 5 MG TAB PO SCH (08:25)
[2022-07-25] MEDS: MAGNESIUM OXIDE 400 MG TAB PO SCH (08:25)
[2022-07-25] MEDS: HEPARIN SOD 5,000 UNIT/0.5 ML VIAL SQ SCH (08:25)
[2022-07-25] MEDS: buPROPion SR 100 MG TABCR PO SCH (08:25)
[2022-07-25] MEDS: TACROLIMUS 1 MG CAP PO SCH (08:26)
[2022-07-25] MEDS: PANTOprazole 40 MG TAB PO SCH (08:26)
[2022-07-25 11:25] VITALS: BP 124/92; TEMP 98.1
[2022-07-25 12:08] VITALS: PULSE 88
--- NOTE | 2022-07-25 16:09 | Discharge Summary ---
Date of Service July 25, 2022 Admission HPI Per Admitting Provider Arian presents to the ER for nausea, vomiting, and diarrhea of 2 days. His had simlar sx which began 2 days prior to his. Wifes symptoms are gradually improving. Arian denies fevers, chills, or sweats. He has bene having diarrhea every 2-3 hours now, was going ~4 times per day yesterday. Completely liquid. No blood. No melena. +vomiting, yesterday and through the night half a dozen times in total. No blood. Nothing black. No vomiting in ER, last emesis was this morning before coming in. No lightheadedness, syncope, or presyncope. Endorses weakness globally, RLB a little achy. Legs are weak, but symmetryical. Slightly tremulous, reports has been shakey for years and comes and goes. R eye with subconjectival hematoma post retinal detachment repair. Vision is normal in that eye post repair. No glaucoma, has not needed any treatment for IOP. Follows with opthamology. Per patient post heart transplant. Denies history of rejection. Takes prednisone and tacrolimus. Tac 1mg morning, 0.5even. Pred 5mg daily. Does not take BB. No hx bradycardia or hypotension. Hx of mild tachycardia at baseline 2/2 trasnplant. No hx afib. Medical History: Reviewed Medications: Reviewed Surgical History: Reviewed Family history: Reviewed Allergies: Reviewed Social History: Denies tobacco/alcohol use Code Status: Full code Principal Diagnosis norovirus gastroenteritis adrenal insufficiency Discharge Exam Patient seen in the company of his Slightly weak and winded walking across the room but he is not hypoxic. His cardiac exam is regular his lungs are clear Discharge Data Allergies Allergy/AdvReac Type Severity Reaction Status Date / Time naproxen Allergy Unknown BROKE OUT Verified 07/22/22 13:29 IN A SWEAT shellfish derived Allergy Unknown HIVES Verified 07/22/22 13:29 oxycodone AdvReac Unknown HALLUCINATI Verified 07/22/22 13:29 ONS Consultations 07/22/22 13:06 ED Decision to Admit Stat 07/25/22 12:19 HIM [Consult Health Information Management] Routine I did speak to cardiology regarding his EKG the possibility atrial flutter he feels it is just a symptom sign of him having 2 atria from his heart transplant sometime showing a double P wave Hospital Course (1) Sepsis: Arian is a 72-year-old male with a past medical history of CHF, CKD 3, heart transplant 2007, hypertension, GERD, DM, BPH who presents to the ER with 2 days of nausea/vomiting/diarrhea and progressive weakness causing him to sit down on the floor. He has not had chest pain or shortness of breath, and has not aspirated to his knowledge. He is having diarrhea approximately every hour, and has had palpitations. His has similar symptoms. Sepsis, acute high risk, norovirus gastroenteritis as source No leukocytosis. Procalcitonin is elevated at 1.87 with elevated lactate of 2.4 on admission Patient is immunosuppressed on tacrolimus which is continued given his history of cardiac transplant and concern for high risk of rejection on previous notes. Received 1 L NSS in ER, additional boluses as needed based on clinical reassessment. 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 previous cardioversion, not on exterminator anticoagulation Known LBBB stress steroids and then return to chronic prednisone Continue tacrolimus 0.5 mg in the evening, 1 mg in the morning, level pending CKD3, moderate risk - Losartan, bumex restart at discharge S/p right upper lobe wedge resection 2/2 persistent pneumomediastinal air leak in the setting of cardiac transplantation. resolved in past BPH chronic and stable - Continue FLomax/tamsulosin Type II DM chronic and stable semaglutide On glargine 5-10 units home dosing CODE: Full (2) CHF (congestive heart failure): (3) CKD (chronic kidney disease) stage 3, GFR 30-59 ml/min: (4) Status post heart transplant: (5) Diabetes mellitus: Total Time Total Time Spent Total Time Spent (In Minutes): It required greater than 30 minutes to prepare this patient for discharge Discharge Plan Discharge Items Patient Disposition: Home - Self-Care Reason For Visit: SEPSIS, GASTROENTERITIS Discharge Diagnosis: norovirus gastroenteritis adrenal insufficiency Activity: Resume your previous activity Non-emergency contact: Primary Care Provider Call non-emergency contact if: your symptoms worsen Follow-up/Referrals: Guillermo Vega III, CRNP [Primary Care Provider] - 08/02/22 4:00 pm (Follow up scheduled 08/02/22 @ 4pm) Diet: Regular Addtl Attending Provider Instructions: Please continue your cardiac meds rest and recover follow up with your primary cares office this week to see if they want to see you this week Pending Studies at Discharge: No Stand-Alone Forms: [facility] Medications and DC Order Prescriptions: Continued magnesium 500 mg Tablet 500 mg PO BID prednisone 5 mg tablet 5 mg PO DAILY bupropion HCl 100 mg tablet sustained-release 12 hr 200 mg PO DAILY terazosin 2 mg capsule 2 mg PO HS tamsulosin 0.4 mg capsule 0.4 mg PO HS omeprazole 20 mg capsule,delayed release(DR/EC) 20 mg PO BID bumetanide 1 mg tablet 2 mg PO QAM vitamin B complex Tablet 1 tab PO DAILY pravastatin 20 mg tablet 20 mg PO HS losartan [Cozaar] 100 mg tablet 100 mg PO DAILY tacrolimus 0.5 mg capsule 1 mg PO QAM tacrolimus 0.5 mg capsule 0.5 mg PO QPM cholecalciferol (vitamin D3) [Vitamin D3] 25 mcg (1,000 unit) Tablet 25 mcg PO DAILY calcium carbonate-vitamin D3 [Calcium 600 + D(3)] 600 mg-10 mcg (400 unit) Tablet 1 tab PO BID insulin glargine [Lantus Solostar U-100 Insulin] 100 unit/mL (3 mL) insulin pen 0 unit SUBCUT DIRECTED PRN (Reason: .high bsg) Ozempic 0.25 mg or 0.5 mg(2 mg/1.5 mL) pen injector 0.5 mg SUBCUT .QWED One A Day 1 tab PO DAILY Discharge Orders: Discharge Order (Routine); Ordered 07/25/22 Ordered By: Arnulfo Lobato Admission Data Admit Date/Time: 07/22/22 13:21 Attending Provider: Arnulfo Lobato Admit Provider: Eduardo Coronado Primary Care Provider: Guillermo Vega III Other Providers: Eduardo Coronado Other Interventions: Discharge Summary Assessment (RN) Last Done: 07/25/22 12:07 Coding Level of Care Code 00705 INP/OBS DISCH >30 MIN Diagnoses Sepsis A41.9 CHF (congestive heart failure) I50.9 Heart failure type: unspecified Heart failure chronicity: unspecified CKD (chronic kidney disease) stage 3, GFR 30-59 ml/min N18.3 Status post heart transplant Z94.1 Diabetes mellitus E11.9; Z79.4 Diabetes mellitus type: type 2 Diabetes mellitus residential insulin use: with exterminator use Diabetes mellitus complication status: without complication
== END 2022-07-25 13:05 | disposition home or self-care (01) | DRG 872 ==
LOC: ED 10:05 → 2E 13:21 → SUATTDRO 13:21 → 2E 14:24

== ENCOUNTER 2022-11-12 11:40 | Inpatient (IN) ==
[2022-11-12] MEDS ORDERED: ALBUT/IPRATROP 3MG/0.5MG NEB 3 ML VIAL INH STA (11:54)
--- NOTE | 2022-11-12 11:56 | Emergency Department Note ---
Impression & Plan Acute dyspnea ADMIT ED Provider Note HPI: The patient is a 72-year-old gentleman with history of cardiac transplant in 2007, currently on tacrolimus and prednisone, presents emergency department with a chief complaint of shortness of breath that seems to be worsening over about the past 10 days. Patient states he also developed some wheezing. Patient states he has had some increased lower extremity edema over the past several days. He has been taking his Bumex as prescribed. On arrival here to the ED the patient does exhibit some mild increased work of breathing and wheezing but he is otherwise hemodynamically stable, he is saturating at 98% on room air on arrival, denies any chest pain ROS: - Per HPI Differential Diagnosis: Acute on chronic CHF exacerbation, COPD exacerbation, viral upper respiratory tract infection with wheezing, acute bronchospasm, acute coronary syndrome, amongst other potential pathologies. *Outpatient medications and allergy history reviewed. *Pertinent external medical records reviewed. PE: General: Alert HEENT: Normocephalic, trachea midline Eyes: Extraocular eye movement is intact, no scleral erythema Pulmonary: Clear to auscultation bilaterally, no wheezing Cardio: Regular rate and rhythm GI: Abdomen is soft to palpation : No suprapubic tenderness MSK: No evidence of trauma or malformation of the extremities, 2-3+ edema b/l LEs Skin: No evidence of rash Neuro: Alert, no focal deficits Psychiatric: Cooperative cardiac monitor: (As interpreted by myself): - An order was placed for continuous cardiac monitoring - Patient was noted to be in sinus rhythm with a rate of 85 EKG: (As interpreted by myself): Rate: 102 Rhythm: Sinus tachycardia Intervals: QRS 166 ms, otherwise within normal limits ST changes: No ST elevation Time: 1157 Interventions provided in ED: -IV Bumex, DuoNeb breathing treatment Medical Decision Making: Shortly after the patient arrived IV was established lab work obtained, patient was maintained on cardiac cath tech. Lab work shows no leukocytosis, hemoglobin is stable at 13.6, platelet count within normal limits, venous blood gas shows evidence of near normal pH at 7.42, PCO2 is normal. CMP shows mild elevation in creatinine above baseline at 1.75, no critical electrolyte abnormalities are noted. BNP is slightly elevated at 318, chest x-ray shows evidence of pulmonary vascular congestion and slight increase in right basilar opacity in comparison to previous. Patient denies any recent cough or fever, no leukocytosis, low suspicion for infection/pneumonia. Following the above evaluation, patient was ambulated with bedside RN, he did not have any issues with ambulatory hypoxia however he did become increasingly tachypneic and felt somewhat dizzy. CT imaging of the head was obtained that shows no evidence of any acute intracranial process, hyperdense material within the right globe consistent with recent surgery for retinal detachment. Following discussion with the patient and his , decision was made for admission for continued monitoring of his breathing status and diuresis given finding of pulmonary vascular congestion on chest x-ray. I discussed the above findings with the on-call hospitalist, Dr. Coronado, and the patient was placed for admission in stable condition. I did also reach out to the transplant team at [facility] to inform them of the patient's admission and at the time of admission have still not made contact. I feel at this time the patient is stable for admission at this facility. Consultants: Hospitalist, Dr. Coronado Disposition discussion held by myself with: Patient and at bedside Diagnosis: 1. Dyspnea, acute 2. History of cardiac transplant in 2007, on tacrolimus 3. Pulmonary vascular congestion on chest x-ray 4. Acute on chronic kidney disease, mild Disposition: Admission Alli Walls DO Emergency Medicine Past Med/Surg History Medical History (Updated 11/12/22 @ 15:48 by Alli Walls DO) Basosquamous carcinoma of skin HX Bladder cancer (1994) S / HX SURGERY AND CHEMO CHF (congestive heart failure) s/p heart transplant CKD (chronic kidney disease) stage 3, GFR 30-59 ml/min PT DENIES BEING AWARE OF ANY KIDNEY DISEASE Depression Diabetes mellitus Fluid retention ANKLES, MED CONTROLS GERD (gastroesophageal reflux disease) Hearing difficulty Hypercholesteremia Hypertension Intracranial hemorrhage PER PT HX FALL FEW YRS AGO, FELL ON ICE - BLOOD ON BRAIN AND IT GOT ABSORBED Ischemic cardiomyopathy resolved s/p heart transplant Pneumonia 05/2019 - has since resolved RBBB (right bundle branch block) resolved s/p heart transplant Skin cancer of face Status post heart transplant (2007) HX 2008 Tubular adenoma of colon ? Surgical History History of bladder surgery (1994) History of heart transplant (2007) [facility] [place] History of Mohs micrographic surgery for skin cancer (02/26/20) Facial / Left Tragus History of umbilical hernia repair (2011) S/P LASIK (laser assisted in situ keratomileusis) of both eyes S/P left cataract extraction 06/17/21 Family History Father Squamous cell cancer of skin of crown Mother No problems noted. Sister No problems noted. Sister No problems noted. Son No problems noted. Daughter No problems noted. Other Family history of diabetes mellitus in father Denies family history of Colon cancer Ovarian cancer Prostate cancer Myocardial infarction Breast cancer Social History Smoking Status: Former smoker Tobacco Type: Cigarettes and Pipe Age Started Using Tobacco: 18; Age Quit Using Tobacco: 28; packs per day: 0.5; Cigarettes Per Day: .; Second Hand Exposure: No; Do You Dip or Chew Tobacco: No; Hx Alcohol Use: Yes Alcohol type: wine Alcohol Intake Frequency: 4 or More x per/Week Hx Substance Use: No Preferred Language: Spanish Communication Ability: Effective Visual Impairment: No Limitations Hearing Ability: Normal Employee Benefits Director Required: No Beliefs That Will Affect Care: None marital status: Current Living Situation: Spouse current occupational status: retired current occupation: Retired [employer] Feels Safe at Home: Yes Childhood Exposure to Second-Hand Smoke: No Diet: regular Diet Comment: regular caffeine: Yes (1.5 cups of coffee/day ) during the past year weight has: remained stable Dental Care, Regularly: Yes Physical Activity Frequency: Does not Exercise Seatbelt Use: always Sunscreen Use: Yes Assistive Devices: None Allergies Allergies Allergy/AdvReac Type Severity Reaction Status Date / Time naproxen Allergy Unknown BROKE OUT Verified 08/02/22 16:00 IN A SWEAT shellfish derived Allergy Unknown HIVES Verified 08/02/22 16:00 oxycodone AdvReac Unknown HALLUCINATI Verified 08/02/22 16:00 ONS Home Meds Home Medications Medication Instructions Recorded Confirmed One A Day 1 tab PO DAILY 07/22/22 11/12/22 bumetanide 1 mg tablet 2 mg PO QAM 07/22/22 11/12/22 calcium carbonate 600 mg-vitamin 1 tab PO BID 07/22/22 11/12/22 D3 10 mcg (400 unit) tablet (Calcium 600 + D(3)) cholecalciferol (vitamin D3) 25 25 mcg PO DAILY 07/22/22 11/12/22 mcg (1,000 unit) tablet (Vitamin D3) insulin glargine 100 unit/mL (3 0 unit subcut DIRECTED PRN 07/22/22 11/12/22 mL) subcutaneous pen (Lantus .high bsg Solostar U-100 Insulin) losartan 100 mg tablet (Cozaar) 100 mg PO DAILY 07/22/22 11/12/22 magnesium 500 mg tablet 500 mg PO BID 07/22/22 11/12/22 omeprazole 20 mg capsule,delayed 20 mg PO BID 07/22/22 11/12/22 release pravastatin 20 mg tablet 20 mg PO HS 07/22/22 11/12/22 prednisone 5 mg tablet 5 mg PO DAILY 07/22/22 11/12/22 semaglutide 0.25 mg or 0.5 mg (2 0.5 mg subcut .QWED 07/22/22 11/12/22 mg/1.5 mL) subcutaneous pen injector (Ozempic) tacrolimus 0.5 mg capsule, 0.5 mg PO QAM 07/22/22 11/12/22 immediate-release tacrolimus 0.5 mg capsule, 0.5 mg PO QPM 07/22/22 11/12/22 immediate-release tamsulosin 0.4 mg capsule 0.4 mg PO HS 07/22/22 11/12/22 terazosin 2 mg capsule 2 mg PO HS 07/22/22 11/12/22 vitamin B complex 1 tab PO DAILY 07/22/22 11/12/22 Previous Rx's Medication Instructions Recorded bupropion HCl 100 mg tablet,12 hr See Rx Instructions .Route 10/14/22 sustained-release .COMPLEX #180 tabs Results & Data (ED) Vital Signs Vital Signs - 24 hr 11/12/22 11:43 11/12/22 12:08 11/12/22 12:08 Temperature 36.3 C L Temperature Source Temporal Artery Scan Pulse Rate 105 H Pulse Rate [Right Apical] 85 Pulse Rate from SpO2 Sensor Respiratory Rate 20 22 Respiratory Effort / Characteristics Non-Labored Spontaneous Respiratory Depth Normal Respiratory Pattern Regular Blood Pressure 145/90 H Blood Pressure [Right Arm] 140/102 H Blood Pressure Mean 108 Blood Pressure Mean [Right Arm] 114 Pulse Oximetry 98 98 98 Oxygen Delivery Method Room Air Room Air Room Air Sepsis Recent Fever Within 48 Hours No Sepsis New/Unexplained Change in Mental Status N/A Sepsis Action Taken by Nursing No Action Required 11/12/22 12:08 11/12/22 13:00 11/12/22 14:00 Temperature Temperature Source Pulse Rate 83 98 H Pulse Rate [Right Apical] Pulse Rate from SpO2 Sensor 100 H 98 H Respiratory Rate 23 20 Respiratory Effort / Characteristics Respiratory Depth Respiratory Pattern Blood Pressure 131/106 H 135/114 H Blood Pressure [Right Arm] Blood Pressure Mean 114 121 Blood Pressure Mean [Right Arm] Pulse Oximetry 98 94 95 Oxygen Delivery Method Room Air Room Air Room Air Sepsis Recent Fever Within 48 Hours Sepsis New/Unexplained Change in Mental Status Sepsis Action Taken by Nursing 11/12/22 15:00 Temperature Temperature Source Pulse Rate 83 Pulse Rate [Right Apical] Pulse Rate from SpO2 Sensor 97 H Respiratory Rate 19 Respiratory Effort / Characteristics Respiratory Depth Respiratory Pattern Blood Pressure 146/101 H Blood Pressure [Right Arm] Blood Pressure Mean 116 Blood Pressure Mean [Right Arm] Pulse Oximetry 96 Oxygen Delivery Method Room Air Sepsis Recent Fever Within 48 Hours Sepsis New/Unexplained Change in Mental Status Sepsis Action Taken by Nursing Laboratory Data 11/12/22 12:05 11/12/22 12:05 Lab Results 11/12/22 11/12/22 11/12/22 Range/Units 12:05 12:05 12:05 WBC 6.55 (4.8-10.8) K/ul RBC 4.78 (4.70-6.10) M/uL Hgb 13.6 L (14.0-18.0) g/dl Hct 41.4 L (42.0-52.0) % MCV 86.6 (80.0-100.0) fL MCH 28.5 (25.0-34.0) pg MCHC 32.9 (32.0-36.0) g/dL RDW Std Deviation 46.0 (36.4-46.3) fL RDW Coeff of Miranda 14.6 H (11.5-14.5) % Plt Count 173 (130-400) K/uL MPV 10.3 (9.4-12.4) fL Immature Gran % (Auto) 0.5 % Neut % (Auto) 60.1 % Lymph % (Auto) 22.7 % Hutchinson % (Auto) 14.0 % Eos % (Auto) 2.1 % Baso % (Auto) 0.6 % Neut # (Auto) 3.93 (1.40-6.50) K/uL Lymph # (Auto) 1.49 (1.2-3.4) K/uL Hutchinson # (Auto) 0.92 H (0.11-0.59) K/uL Eos # (Auto) 0.14 (0-0.50) K/uL Baso # (Auto) 0.04 (0-0.2) K/uL Immature Gran # (Auto) 0.03 (0.01-0.20) K/uL PT Cancelled INR Cancelled VBG pH (7.36-7.41) VBG pCO2 (38-50) mmHg VBG pO2 mmHg VBG HCO3 mmol/L VBG O2 Saturation % VBG Base Excess mEq/L Sodium 140 (136-145) mmol/L Potassium 4.8 (3.5-5.1) mmol/L Chloride 104 (98-107) mmol/L Carbon Dioxide 28 (21-32) mmol/L Anion Gap 8 (3-11) BUN 30 H (6-23) mg/dl Creatinine 1.75 H (0.6-1.4) mg/dl Est Cr Clr Drug Dosing 43.1 ml/min Est GFR ( Amer) 43.5 ml/min Est GFR (Non-Af Amer) 37.5 ml/min BUN/Creatinine Ratio 17.1 (10-20) Glucose 152 H (70-99(Fasting)) mg/dl Calcium 9.2 (8.6-10.3) mg/dl Total Bilirubin 1.1 H (0.2-1.0) mg/dl AST 38 (13-39) U/L ALT 25 (7-52) U/L Alkaline Phosphatase 249 H (34-104) U/L Troponin I High Sens 10.9 (0-20) pg/ml B-Natriuretic Peptide (0-100) pg/ml Total Protein 7.1 (6.0-8.3) gm/dl Albumin 4.3 (3.4-5.0) gm/dl Globulin 2.8 (2.5-4.0) gm/dl Albumin/Globulin Ratio 1.5 (0.9-2) Urine Color Urine Appearance (Clear) Urine pH (4.5-7.5) Ur Specific Gaffney (1.000-1.030) Urine Protein (Negative) Urine Glucose (UA) (Negative) Urine Ketones (Negative) Urine Blood (Negative) Urine Nitrite (Negative) Urine Bilirubin (Negative) Urine Urobilinogen (Negative) Ur Leukocyte Esterase (Negative) SARS-CoV-2, RNA, NAAT (NEGATIVE) 11/12/22 11/12/22 11/12/22 Range/Units 12:05 12:05 12:15 WBC (4.8-10.8) K/ul RBC (4.70-6.10) M/uL Hgb (14.0-18.0) g/dl Hct (42.0-52.0) % MCV (80.0-100.0) fL MCH (25.0-34.0) pg MCHC (32.0-36.0) g/dL RDW Std Deviation (36.4-46.3) fL RDW Coeff of Miranda (11.5-14.5) % Plt Count (130-400) K/uL MPV (9.4-12.4) fL Immature Gran % (Auto) % Neut % (Auto) % Lymph % (Auto) % Hutchinson % (Auto) % Eos % (Auto) % Baso % (Auto) % Neut # (Auto) (1.40-6.50) K/uL Lymph # (Auto) (1.2-3.4) K/uL Hutchinson # (Auto) (0.11-0.59) K/uL Eos # (Auto) (0-0.50) K/uL Baso # (Auto) (0-0.2) K/uL Immature Gran # (Auto) (0.01-0.20) K/uL PT INR VBG pH 7.42 H (7.36-7.41) VBG pCO2 47 (38-50) mmHg VBG pO2 43 mmHg VBG HCO3 31 mmol/L VBG O2 Saturation 69.5 % VBG Base Excess 5.0 mEq/L Sodium (136-145) mmol/L Potassium (3.5-5.1) mmol/L Chloride (98-107) mmol/L Carbon Dioxide (21-32) mmol/L Anion Gap (3-11) BUN (6-23) mg/dl Creatinine (0.6-1.4) mg/dl Est Cr Clr Drug Dosing ml/min Est GFR ( Amer) ml/min Est GFR (Non-Af Amer) ml/min BUN/Creatinine Ratio (10-20) Glucose (70-99(Fasting)) mg/dl Calcium (8.6-10.3) mg/dl Total Bilirubin (0.2-1.0) mg/dl AST (13-39) U/L ALT (7-52) U/L Alkaline Phosphatase (34-104) U/L Troponin I High Sens (0-20) pg/ml B-Natriuretic Peptide 318 H (0-100) pg/ml Total Protein (6.0-8.3) gm/dl Albumin (3.4-5.0) gm/dl Globulin (2.5-4.0) gm/dl Albumin/Globulin Ratio (0.9-2) Urine Color Urine Appearance (Clear) Urine pH (4.5-7.5) Ur Specific Gaffney (1.000-1.030) Urine Protein (Negative) Urine Glucose (UA) (Negative) Urine Ketones (Negative) Urine Blood (Negative) Urine Nitrite (Negative) Urine Bilirubin (Negative) Urine Urobilinogen (Negative) Ur Leukocyte Esterase (Negative) SARS-CoV-2, RNA, NAAT NEGATIVE (NEGATIVE) 11/12/22 11/12/22 Range/Units 12:50 13:59 WBC (4.8-10.8) K/ul RBC (4.70-6.10) M/uL Hgb (14.0-18.0) g/dl Hct (42.0-52.0) % MCV (80.0-100.0) fL MCH (25.0-34.0) pg MCHC (32.0-36.0) g/dL RDW Std Deviation (36.4-46.3) fL RDW Coeff of Miranda (11.5-14.5) % Plt Count (130-400) K/uL MPV (9.4-12.4) fL Immature Gran % (Auto) % Neut % (Auto) % Lymph % (Auto) % Hutchinson % (Auto) % Eos % (Auto) % Baso % (Auto) % Neut # (Auto) (1.40-6.50) K/uL Lymph # (Auto) (1.2-3.4) K/uL Hutchinson # (Auto) (0.11-0.59) K/uL Eos # (Auto) (0-0.50) K/uL Baso # (Auto) (0-0.2) K/uL Immature Gran # (Auto) (0.01-0.20) K/uL PT 12.6 H INR 1.2 H VBG pH (7.36-7.41) VBG pCO2 (38-50) mmHg VBG pO2 mmHg VBG HCO3 mmol/L VBG O2 Saturation % VBG Base Excess mEq/L Sodium (136-145) mmol/L Potassium (3.5-5.1) mmol/L Chloride (98-107) mmol/L Carbon Dioxide (21-32) mmol/L Anion Gap (3-11) BUN (6-23) mg/dl Creatinine (0.6-1.4) mg/dl Est Cr Clr Drug Dosing ml/min Est GFR ( Amer) ml/min Est GFR (Non-Af Amer) ml/min BUN/Creatinine Ratio (10-20) Glucose (70-99(Fasting)) mg/dl Calcium (8.6-10.3) mg/dl Total Bilirubin (0.2-1.0) mg/dl AST (13-39) U/L ALT (7-52) U/L Alkaline Phosphatase (34-104) U/L Troponin I High Sens (0-20) pg/ml B-Natriuretic Peptide (0-100) pg/ml Total Protein (6.0-8.3) gm/dl Albumin (3.4-5.0) gm/dl Globulin (2.5-4.0) gm/dl Albumin/Globulin Ratio (0.9-2) Urine Color Dark Yellow Urine Appearance Clear (Clear) Urine pH 7.5 (4.5-7.5) Ur Specific Gaffney 1.012 (1.000-1.030) Urine Protein Negative (Negative) Urine Glucose (UA) Negative (Negative) Urine Ketones Negative (Negative) Urine Blood Negative (Negative) Urine Nitrite Negative (Negative) Urine Bilirubin Negative (Negative) Urine Urobilinogen Negative (Negative) Ur Leukocyte Esterase Negative (Negative) SARS-CoV-2, RNA, NAAT (NEGATIVE) Administered Medications Discontinued Medications Albuterol (Albut/Ipratrop 3mg/0.5mg Neb 3 Ml Vial) 3 ml INH NOW STA Stop: 11/12/22 11:55 Last Admin: 11/12/22 12:14 Dose: 3 ml Documented By: SYDNEE Bumetanide 1 mg/ Syringe 4 mls @ 4 mls/min IV ONE ONE Stop: 11/12/22 12:23 Last Admin: 11/12/22 12:43 Dose: 4 mls/min Documented By: SYDNEE Imaging Data Radiologist's Impression: Chest X-Ray 11/12/22 11:54 XR chest 1V portable CLINICAL HISTORY: Dyspnea. COMPARISON STUDY: Chest CT January 28, 2022. Chest radiograph July 22, 2022. FINDINGS: There are median sternotomy wires. Cardiomegaly is unchanged. No pneumothorax is present. Moderate right pleural effusion has slightly increased since prior exam. Associated right basilar opacity has slightly increased. There is pulmonary vascular congestion. IMPRESSION: 1. Cardiomegaly with pulmonary vascular congestion. 2. Slight increase in a moderate right pleural effusion and associated right basilar opacity. ACT 112: Negative or not required by law. Electronically signed by: Abrahan Almanzar M.D. 11/12/2022 12:[address] 11/12/22 14:08 CT SCAN OF THE BRAIN WITHOUT IV CONTRAST CLINICAL HISTORY: Dizziness. COMPARISON STUDY: CT of the brain dated 10/09/2014. TECHNIQUE: Unenhanced axial CT scan of the brain is performed from the vertex to the skull base. A dose lowering technique was utilized adhering to the principles of ALARA. CT DOSE: 1250.21 mGy.cm FINDINGS: Brain parenchyma: There is age-related involutional change noting moderate subcortical and periventricular microangiopathic disease. There is no hemorrhage, mass effect, or evidence of acute territorial ischemia by CT criteria. Nunes-white matter differentiation is preserved. No extra-axial fluid collection is seen. Ventricles, sulci, cisterns: Prominent secondary to involutional change. Intracranial vasculature: There is atherosclerotic calcification of the cavernous carotid and vertebral arteries. Calvarium: Unremarkable. Sinuses and mastoids: There is trace fluid within the sphenoid sinuses. Trace mu cosal thickening seen in the left maxillary antrum. The remaining paranasal sinuses are clear. The mastoid air cells are well pneumatized. Orbits: The bony orbits are grossly intact.. There is a left ocular lens implant. Hyperdense material filling the right globe is likely on a postsurgical basis. IMPRESSION: 1. There is no hemorrhage, mass effect, or evidence of acute territorial ischemia by CT criteria. 2. Hyperdense material filling the right globe is likely a postsurgical basis. Correlate clinically. This is new from 2015. ACT 112: Negative or not required by law. Electronically signed by: Javier Toledo M.D. 11/12/2022 2:24 PM Discharge Plan Visit Data Chief Complaint: Shortness of Breath/Dyspnea Stated Complaint: SOB, RETAINING FLUID ED Provider: Alli Walls Discharge Problem: Acute dyspnea Forms Stand Alone Forms: [facility] Prescriptions Prescriptions: No Action bupropion HCl 100 mg tablet sustained-release 12 hr See Rx Instructions .ROUTE .COMPLEX Qty: 180 3RF Dose Instruction: TAKE 1 TABLET TWICE A DAY Rx Instructions: TAKE 1 TABLET TWICE A DAY magnesium 500 mg Tablet 500 mg PO BID prednisone 5 mg tablet 5 mg PO DAILY terazosin 2 mg capsule 2 mg PO HS tamsulosin 0.4 mg capsule 0.4 mg PO HS omeprazole 20 mg capsule,delayed release(DR/EC) 20 mg PO BID bumetanide 1 mg tablet 2 mg PO QAM vitamin B complex Tablet 1 tab PO DAILY pravastatin 20 mg tablet 20 mg PO HS losartan [Cozaar] 100 mg tablet 100 mg PO DAILY tacrolimus 0.5 mg capsule 0.5 mg PO QAM tacrolimus 0.5 mg capsule 0.5 mg PO QPM cholecalciferol (vitamin D3) [Vitamin D3] 25 mcg (1,000 unit) Tablet 25 mcg PO DAILY calcium carbonate-vitamin D3 [Calcium 600 + D(3)] 600 mg-10 mcg (400 unit) Tablet 1 tab PO BID insulin glargine [Lantus Solostar U-100 Insulin] 100 unit/mL (3 mL) insulin pen 0 unit SUBCUT DIRECTED PRN (Reason: .high bsg) Ozempic 0.25 mg or 0.5 mg(2 mg/1.5 mL) pen injector 0.5 mg SUBCUT .QWED One A Day 1 tab PO DAILY Referrals Referrals: Guillermo Vega III, CRNP [Primary Care Provider] -
--- NOTE | 2022-11-12 12:21 | XRay Report ---
XR chest 1V portable CLINICAL HISTORY: Dyspnea. COMPARISON STUDY: Chest CT January 28, 2022. Chest radiograph July 22, 2022. FINDINGS: There are median sternotomy wires. Cardiomegaly is unchanged. No pneumothorax is present. M oderate right pleural effusion has slightly increased since prior exam. Associated right basilar opac ity has slightly increased. There is pulmonary vascular congestion. IMPRESSION: 1. Cardiomegaly with pulmonary vascular congestion. 2. Slight increase in a moderate right pleural effusion and associated right basilar opacity. ACT 112: Negative or not required by law. Electronically signed by: Abrahan Almanzar M.D. 11/12/2022 12:19 PM
[2022-11-12] MEDS ORDERED: BUMETANIDE 1 MG in SYRINGE 0 ML IV ONE (12:22)
[2022-11-12 12:24] LABS: HCO3 VBG 31 mmol/L; Oxygen Saturation VBG 69.5 %; PCO2 VBG 47 mmHg (38-50); PO2 VBG 43 mmHg; pH VBG 7.42 (7.36-7.41)
[2022-11-12 12:37] LABS: Basophils # (auto) 0.04 K/uL (0-0.2); Basophils % (auto) 0.6 %; Eosinophils # (auto) 0.14 K/uL (0-0.50); Eosinophils % (auto) 2.1 %; Hematocrit (blood only) 41.4 % (42.0-52.0); Hemoglobin 13.6 g/dl (14.0-18.0); Immature Granulocytes # (auto) 0.03 K/uL (0.01-0.20); Immature Granulocytes % (auto) 0.5 %; Lymphocytes # (auto) 1.49 K/uL (1.2-3.4); Lymphocytes % (auto) 22.7 %; Mean Corpuscular Hemoglobin 28.5 pg (25.0-34.0); Mean Corpuscular Hgb Conc 32.9 g/dL (32.0-36.0); Mean Corpuscular Volume 86.6 fL (80.0-100.0); Mean Platelet Volume 10.3 fL (9.4-12.4); Monocytes # (auto) 0.92 K/uL (0.11-0.59); Neutrophils # (auto) 3.93 K/uL (1.40-6.50); Neutrophils % (auto) 60.1 %; Platelet Count 173 K/uL (130-400); RDW Coefficient of Variation 14.6 % (11.5-14.5); Red Blood Count 4.78 M/uL (4.70-6.10); White Blood Count 6.55 K/ul (4.8-10.8)
[2022-11-12 12:41] LABS: Albumin Globulin Ratio 1.5 (0.9-2); Albumin Level 4.3 gm/dl (3.4-5.0); BUN Creatinine Ratio 17.1 (10-20); Bilirubin,Total 1.1 mg/dl (0.2-1.0); Calcium 9.2 mg/dl (8.6-10.3); Creatinine Clr Calc Pharmacy 43.1 ml/min; Est GFR (African American) 43.5 ml/min; Est GFR (Non-African American) 37.5 ml/min; Globulin 2.8 gm/dl (2.5-4.0); Potassium 4.8 mmol/L (3.5-5.1); Total Protein 7.1 gm/dl (6.0-8.3)
[2022-11-12 12:46] LABS: Troponin I High Sensitivity 10.9 pg/ml (0-20)
[2022-11-12 13:32] LABS: INR 1.2 (0.9-1.1); Prothrombin Time 12.6 Seconds (9.0-12.0)
--- NOTE | 2022-11-12 14:16 | Electrocardiogram Report ---
Test Reason : Blood Pressure : / mmHG Vent. 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
[2022-11-12 14:24] LABS: Appearance Urine Clear (Clear); Bilirubin Urine Negative (Negative); Blood Urine Negative (Negative); Color Urine Dark Yellow; Glucose Urine UA Negative (Negative); Ketones Urine Negative (Negative); Leukocyte Esterase Urine Negative (Negative); Nitrite Urine Negative (Negative); Protein Urine Negative (Negative); Specific Gravity Urine 1.012 (1.000-1.030); Urobilinogen Urine Negative (Negative); pH Urine 7.5 (4.5-7.5)
--- NOTE | 2022-11-12 14:26 | CT Scan Report ---
CT SCAN OF THE BRAIN WITHOUT IV CONTRAST CLINICAL HISTORY: Dizziness. COMPARISON STUDY: CT of the brain dated 10/09/2014. TECHNIQUE: Unenhanced axial CT scan of the brain is performed from the vertex to the skull base. A do se lowering technique was utilized adhering to the principles of ALARA. CT DOSE: 1250.21 mGy.cm FINDINGS: Brain parenchyma: There is age-related involutional change noting moderate subcortical and periventri cular microangiopathic disease. There is no hemorrhage, mass effect, or evidence of acute territorial ischemia by CT criteria. Nunes-white matter differentiation is preserved. No extra-axial fluid collec tion is seen. Ventricles, sulci, cisterns: Prominent secondary to involutional change. Intracranial vasculature: There is atherosclerotic calcification of the cavernous carotid and vertebr al arteries. Calvarium: Unremarkable. Sinuses and mastoids: There is trace fluid within the sphenoid sinuses. Trace mucosal thickening seen in the left maxillary antrum. The remaining paranasal sinuses are clear. The mastoid air cells are w ell pneumatized. Orbits: The bony orbits are grossly intact.. There is a left ocular lens implant. Hyperdense material filling the right globe is likely on a postsurgical basis. IMPRESSION: 1. There is no hemorrhage, mass effect, or evidence of acute territorial ischemia by CT criteria. 2. Hyperdense material filling the right globe is likely a postsurgical basis. Correlate clinically. This is new from 2014. ACT 112: Negative or not required by law. Electronically signed by: Javier Toledo M.D. 11/12/2022 2:24 PM
--- NOTE | 2022-11-12 15:24 | History & Physical Report ---
Date of Service November 12, 2022 Assessment & Plan (1) Acute dyspnea: Plan: Worsening dyspnea without hypoxia Dyspnea and wheezing for 10 days. No history of COPD and generally does not wheeze Increase lower extremity edema for about 1 week Has been compliant with Bumex as an outpatient. Has not had any orthopnea and does not sound volume overloaded, some pulmonary congestion on x-ray but his BNP is actually better than previous and creatinine is slightly elevated and lips are dry clinically slightly hypovolemic Has a increased opacity in the right lower lung from prior asymmetrically. No leukocytosis but patient is immune compromised on tacrolimus at baseline and has had some yellow sputum production. Will obtain CTchest Noncon to better characterize and Pro-Kulwinder. If elevated or infectious appearing, will start broad-spectrum antibiotics. If consistent with pulmonary edema then we will cautiously diurese, trend BMP daily Heart failure with reduced ejection fraction History of heart transplant 06/2007 due to idiopathic dilated cardiomyopathy Follows with [facility] cardiology Creatinine baseline around 1.61.7, 1.[address] for pulmonary edema, BNP is elevated but below patient's prior levels. Diuretic treatment as noted. Clinically is without orthopnea, but does have bilateral lower extremity swelling. Asymmetric and more in the left leg, Doppler to R/oh DVT is pending. May also have venous stasis independent from his CHF History of cardiac transplant On tacrolimus/prednisone chronically TTE 2021, EF 40-45% Has required steroid pulses and interventions for cellular rejection in the past Tacrolimus level pending on admission GENNY on CKD 3 Prior baseline around 1.41.5, more recently it appears to be closer to 1.61.7 Admitting creatinine is 1.75 Bumex as noted, trend BMP daily S/p right upper lobe wedge resection Was performed due to persistent pneumo with air leak No acute change in management for this Type II DM Hold home antiglycemic's Goal BSG [id number] Continue glargine 10 units at bedtime, scaled SSI Glucose checks AC/at bedtime DVT prophylaxis: Heparin Disposition: Medical telemetry for? CHF CODE STATUS: Full code Diet: DM/low-salt (2) CHF (congestive heart failure): (3) CKD (chronic kidney disease) stage 3, GFR 30-59 ml/min: (4) Status post heart transplant: (5) Hypertension: (6) Hypercholesteremia: (7) Diabetes mellitus: History of Present Illness Primary Care Provider: Guillermo Vega, CHIKA, MARKO Arian is a 72-year-old male with a past medical history of heart transplant, CKD, CHF, hypertension, hypercholesterolemia, GERD, DM, vitamin D deficiency who presents with He reports he has been very tired and more short of breath lately. Has had some wheezing and increase fluid retention/leg swelling. Minimal to almost no sputum production slightly yellow when he does cough something up. No fevers, or chills. Was a little cold earlier, but better with a blanket. No nausea, vomiting, or diarrhea. No chest pain or chest pressure. Shortness of breath is unchanged by position, denies orthopnea. - Vision remains impaired in the R eye. Sees white/clouded blurs in R eye. L eye is normal. - Did not take medications this morning Was recently seen at 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 Was continued on tacrolimus/prednisone. Recommended for continued outpatient follow-up L>R leg swelling On admission: No leukocytosis Hemoglobin 13.6 VB.4 //31 BNP elevated at 318, last was around 700s with last episode of heart failure High-sensitivity troponin is normal at 10.9 - CThead: No acute finding. Hyperdense material of the right globe new from 2014. Likely postsurgical. This is consistent with patient's retinal detachment repair at [facility]. - CXR: Cardiomegaly with pulmonary vascular congestion, slight increase in right pleural effusion and associated right basilar opacity Admitting EKG: Sinus tachycardia with right bundle branch block. Nonspecific T wave change, no territorial signs of ischemia. QTc 497. Rate 102 Rec review from 09/14 cardiology note: Prednisone 5 mg daily Tacrolimus 0.5 mg Bumex 1 mg Allergies Allergy/AdvReac Type Severity Reaction Status Date / Time naproxen Allergy Unknown BROKE OUT Verified 08/02/22 16:00 IN A SWEAT shellfish derived Allergy Unknown HIVES Verified 08/02/22 16:00 oxycodone AdvReac Unknown HALLUCINATI Verified 08/02/22 16:00 ONS Home Medications Medication Instructions Recorded Confirmed Type One A Day 1 tab PO DAILY 07/22/22 11/12/22 History bumetanide 1 mg tablet 2 mg PO QAM 07/22/22 11/12/22 History calcium carbonate 600 mg-vitamin 1 tab PO BID 07/22/22 11/12/22 History D3 10 mcg (400 unit) tablet (Calcium 600 + D(3)) cholecalciferol (vitamin D3) 25 25 mcg PO DAILY 07/22/22 11/12/22 History mcg (1,000 unit) tablet (Vitamin D3) insulin glargine 100 unit/mL (3 0 unit subcut DIRECTED PRN 07/22/22 11/12/22 History mL) subcutaneous pen (Lantus .high bsg Solostar U-100 Insulin) losartan 100 mg tablet (Cozaar) 100 mg PO DAILY 07/22/22 11/12/22 History magnesium 500 mg tablet 500 mg PO BID 07/22/22 11/12/22 History omeprazole 20 mg capsule,delayed 20 mg PO BID 07/22/22 11/12/22 History release pravastatin 20 mg tablet 20 mg PO HS 07/22/22 11/12/22 History prednisone 5 mg tablet 5 mg PO DAILY 07/22/22 11/12/22 History semaglutide 0.25 mg or 0.5 mg (2 0.5 mg subcut .QWED 07/22/22 11/12/22 History mg/1.5 mL) subcutaneous pen injector (Ozempic) tacrolimus 0.5 mg capsule, 0.5 mg PO QAM 07/22/22 11/12/22 History immediate-release tacrolimus 0.5 mg capsule, 0.5 mg PO QPM 07/22/22 11/12/22 History immediate-release tamsulosin 0.4 mg capsule 0.4 mg PO HS 07/22/22 11/12/22 History terazosin 2 mg capsule 2 mg PO HS 07/22/22 11/12/22 History vitamin B complex 1 tab PO DAILY 07/22/22 11/12/22 History bupropion HCl 100 mg tablet,12 hr See Rx Instructions .Route 10/14/22 11/12/22 Rx sustained-release .COMPLEX #180 tabs Past Med/Surg History Medical History (Updated 11/12/22 @ 15:48 by Alli Walls DO) Basosquamous carcinoma of skin HX Bladder cancer (1994) S / HX SURGERY AND CHEMO CHF (congestive heart failure) s/p heart transplant CKD (chronic kidney disease) stage 3, GFR 30-59 ml/min PT DENIES BEING AWARE OF ANY KIDNEY DISEASE Depression Diabetes mellitus Fluid retention ANKLES, MED CONTROLS GERD (gastroesophageal reflux disease) Hearing difficulty Hypercholesteremia Hypertension Intracranial hemorrhage PER PT HX FALL FEW YRS AGO, FELL ON ICE - BLOOD ON BRAIN AND IT GOT ABSORBED Ischemic cardiomyopathy resolved s/p heart transplant Pneumonia 05/2019 - has since resolved RBBB (right bundle branch block) resolved s/p heart transplant Skin cancer of face Status post heart transplant (2007) HX 2008 Tubular adenoma of colon ? Surgical History History of bladder surgery (1994) History of heart transplant (2007) [facility] [place] History of Mohs micrographic surgery for skin cancer (02/26/20) Facial / Left Tragus History of umbilical hernia repair (2011) S/P LASIK (laser assisted in situ keratomileusis) of both eyes S/P left cataract extraction 06/17/21 Family History Father Squamous cell cancer of skin of crown Mother No problems noted. Sister No problems noted. Sister No problems noted. Son No problems noted. Daughter No problems noted. Other Family history of diabetes mellitus in father Denies family history of Colon cancer Ovarian cancer Prostate cancer Myocardial infarction Breast cancer Social History Smoking Status: Former smoker Tobacco Type: Cigarettes and Pipe Age Started Using Tobacco: 18; Age Quit Using Tobacco: 28; packs per day: 0.5; Cigarettes Per Day: .; Second Hand Exposure: No; Do You Dip or Chew Tobacco: No; Hx Alcohol Use: Yes Alcohol type: wine Alcohol Intake Frequency: 4 or More x per/Week Hx Substance Use: No Preferred Language: Belarusian Communication Ability: Effective Visual Impairment: No Limitations Hearing Ability: Normal Contract Programmer Required: No Beliefs That Will Affect Care: None marital status: Current Living Situation: Spouse current occupational status: retired current occupation: Retired [employer] Feels Safe at Home: Yes Childhood Exposure to Second-Hand Smoke: No Diet: regular Diet Comment: regular caffeine: Yes (1.5 cups of coffee/day ) during the past year weight has: remained stable Dental Care, Regularly: Yes Physical Activity Frequency: Does not Exercise Seatbelt Use: always Sunscreen Use: Yes Assistive Devices: None Review of Systems Review of Systems: All systems reviewed & are unremarkable except as noted in Subjective Physical Exam Physical Exam: General: A&Ox3. NAD. Cooperative. HEENT: Atraumatic, normocephalic. Diminished vision in right eye only able to see shadows and very blurry at baseline. Vision left eye intact. Hearing grossly intact Pulm: Scattered wheezes in right lower field, diminished in right lower lung. Otherwise moderate to limited air movement but grossly clear. No rales. Symmetrical chest rise. No increased work of breathing. No respiratory distress. Cardiac: RRR, -mrg. Radial pulses intact and symmetrical. Abdominal: Nontender, nondistended, soft. BS present. Extremities: Left greater than right pitting edema, trace ankle edema on the right 1+ on the left. Results & Data Results & Data Vital Signs (Past 12 Hours) Vital Signs Temp Pulse Pulse Resp BP BP Pulse Ox 11/12/22 15:00 83 19 146/101 H 96 11/12/22 14:00 98 H 20 135/114 H 95 11/12/22 13:00 83 23 131/106 H 94 11/12/22 12:08 98 11/12/22 12:08 85 22 140/102 H 98 11/12/22 12:08 98 11/12/22 11:43 36.3 C L 105 H 20 145/90 H 98 O2 Del Method 11/12/22 15:00 Room Air 11/12/22 14:00 Room Air 11/12/22 13:00 Room Air 11/12/22 12:08 Room Air 11/12/22 12:08 Room Air 11/12/22 12:08 Room Air 11/12/22 11:43 Room Air PG Care Time/CCT Total # of Minutes Spent Total Time Spent with Patient: Total time spent is greater than 50% in coordination of care (as documented) at patient's floor/unit and/or counseling patient: Coding Level of Care Code 48878 INT INP/OBS CARE 3/75MIN Diagnoses Acute dyspnea R06.00 CHF (congestive heart failure) I50.9 Heart failure type: unspecified Heart failure chronicity: unspecified CKD (chronic kidney disease) stage 3, GFR 30-59 ml/min N18.3 Status post heart transplant Z94.1 Hypertension I10 Hypertension type: essential hypertension Hypercholesteremia E78.00 Diabetes mellitus E11.9; Z79.4 Diabetes mellitus type: type 2 Diabetes mellitus intermediate insulin use: with intermediate use Diabetes mellitus complication status: without complication (2) CHF (congestive heart failure) Heart failure type: unspecified Heart failure chronicity: unspecified Qualified Code(s): I50.9 - Heart failure, unspecified (5) Hypertension Hypertension type: essential hypertension Qualified Code(s): I10 - Essential (primary) hypertension (7) Diabetes mellitus Diabetes mellitus type: type 2 Diabetes mellitus buttermaker insulin use: with buttermaker use Diabetes mellitus complication status: without complication Qualified Code(s): E11.9 - Type 2 diabetes mellitus without complications; Z79.4 - terminal operator (current) use of insulin
[2022-11-12] MEDS ORDERED: GLUCAGON FOR INJ 1 MG VIAL SQ PRN (15:55)
[2022-11-12] MEDS ORDERED: DEXTROSE 50% 50 ML SYRINGE IV PRN (15:55)
[2022-11-12] MEDS ORDERED: GLUCOSE 10 TAB/TUBE PO PRN (15:55)
[2022-11-12] MEDS ORDERED: GLUCOSE 40% GEL 15 GM TUBE PO PRN (15:55)
[2022-11-12] MEDS ORDERED: CARBOHYDRATES FOR HYPOGLYCEMIA PO PRN (15:55)
--- NOTE | 2022-11-12 16:25 | CT Scan Report ---
CT chest diagnostic wo con CLINICAL HISTORY: immune compromise, dyspnea, RLL opacity vs chf TECHNIQUE: Multidetector row helical CT of the chest was performed. Coronal and sagittal reformations were obtained. Automated dose lowering techniques and/or adjustment according to patient size were u tilized for this exam. CT DOSE: 693.25 mGy.cm Comparison: Comparison is made to chest radiograph 11/12/[address] chest 01/28/2022 FINDINGS: Lungs and pleura: There is a moderate right and small left pleural effusion with underlying atelectas is. Heart and pericardium: Cardiomegaly is seen with biatrial enlargement. Vessels: Unremarkable. Mediastinum and [place]: Scattered partially calcified lymph nodes are seen. Chest wall and lower neck: Unremarkable. Abdomen: Unremarkable. Bones: Degenerative changes in the thoracic spine. IMPRESSION: Moderate right and small left pleural effusion. No evidence of pneumonia or other acute abnormality. ACT 112: Negative or not required by law. Electronically signed by: Galdino Childs M.D. 11/12/2022 4:24 PM
[2022-11-12] MEDS: INSULIN ASPART PER UNIT CHARGE SC SCH ×2 (18:25→22:32)
--- NOTE | 2022-11-12 19:25 | Ultrasound Report ---
US venous doppler LE LT CLINICAL HISTORY: LLE asymmetrical swelling TECHNIQUE: Left lower extremity real-time compression venous ultrasound with Color Doppler imaging. U tilizing real-time ultrasonic imaging multiple real time high-resolution ultrasonic images with compr ession and noncompression maneuvers of the deep venous system in addition to color doppler imaging we re performed from the common femoral vein through the proximal calf veins. COMPARISON: Comparison is made to a venous Doppler ultrasound 09/30/2013 FINDINGS/IMPRESSION: Currently there is normal compressibility of the deep venous system from the common femoral vein thro ugh the proximal calf veins. No superficial venous thrombosis is identified. ACT 112: Negative or not required by law. Electronically signed by: Galdino Childs M.D. 11/12/2022 7:24 PM
[2022-11-12] MEDS ORDERED: ACETAMINOPHEN 325 MG TAB PO PRN (20:38)
[2022-11-12] MEDS: TAMSULOSIN HCL 0.4 MG CAP PO SCH (22:18)
[2022-11-12] MEDS: TERAZOSIN HCL 1 MG CAP PO SCH (22:18)
[2022-11-12] MEDS: TACROLIMUS 0.5 MG CAP PO SCH (22:19)
[2022-11-12] MEDS: PRAVASTATIN SOD 20 MG TAB PO SCH (22:19)
[2022-11-12] MEDS: PANTOprazole 40 MG TAB PO SCH (22:19)
[2022-11-12] MEDS: buPROPion SR 100 MG TABCR PO SCH (22:20)
[2022-11-12] MEDS: MAGNESIUM OXIDE 400 MG TAB PO SCH (22:20)
[2022-11-12] MEDS: LANTUS PER UNIT CHARGE SQ SCH (22:32)
[2022-11-12] MEDS: HEPARIN SOD 5,000 UNIT/0.5 ML VIAL SQ SCH (22:33)
[2022-11-13] MEDS: HEPARIN SOD 5,000 UNIT/0.5 ML VIAL SQ SCH ×3 (06:07→21:52)
[2022-11-13 06:53] LABS: BUN Creatinine Ratio 20.3 (10-20); Creatinine Clr Calc Pharmacy 50.9 ml/min; Est GFR (African American) 53.3 ml/min; Potassium 4.1 mmol/L (3.5-5.1)
[2022-11-13 07:18] LABS: Basophils # (auto) 0.02 K/uL (0-0.2); Basophils % (auto) 0.3 %; Eosinophils # (auto) 0.09 K/uL (0-0.50); Eosinophils % (auto) 1.6 %; Hematocrit (blood only) 39.9 % (42.0-52.0); Hemoglobin 13.3 g/dl (14.0-18.0); Immature Granulocytes # (auto) 0.02 K/uL (0.01-0.20); Immature Granulocytes % (auto) 0.3 %; Lymphocytes % (auto) 24.2 %; Mean Corpuscular Hemoglobin 28.4 pg (25.0-34.0); Mean Corpuscular Hgb Conc 33.3 g/dL (32.0-36.0); Mean Corpuscular Volume 85.1 fL (80.0-100.0); Mean Platelet Volume 10.4 fL (9.4-12.4); Monocytes # (auto) 0.81 K/uL (0.11-0.59); Neutrophils # (auto) 3.44 K/uL (1.40-6.50); Neutrophils % (auto) 59.6 %; Platelet Count 159 K/uL (130-400); RDW Coefficient of Variation 14.7 % (11.5-14.5); Red Blood Count 4.69 M/uL (4.70-6.10); White Blood Count 5.78 K/ul (4.8-10.8)
[2022-11-13] MEDS: INSULIN ASPART PER UNIT CHARGE SC SCH ×4 (07:56→21:53)
[2022-11-13] MEDS ORDERED: NEOMYCIN/POLYMYXIN/HYDROCORT OPH SUSP 7.5 ML BTL OP SCH (09:00)
[2022-11-13] MEDS ORDERED: TIMOLOL MALEATE 0.5% OP SOLN 5 ML BTL OP SCH (09:00)
[2022-11-13] MEDS ORDERED: BRIMONIDINE TARTRATE 0.2% 5ML OP SCH (09:00)
[2022-11-13] MEDS: predniSONE 5 MG TAB PO SCH (09:04)
[2022-11-13] MEDS: TACROLIMUS 0.5 MG CAP PO SCH ×2 (09:04→20:32)
[2022-11-13] MEDS: LANTUS PER UNIT CHARGE SQ SCH ×2 (09:04→21:52)
[2022-11-13] MEDS: MAGNESIUM OXIDE 400 MG TAB PO SCH ×2 (09:04→20:33)
[2022-11-13] MEDS: PANTOprazole 40 MG TAB PO SCH ×2 (09:04→20:31)
[2022-11-13] MEDS: buPROPion SR 100 MG TABCR PO SCH ×2 (09:04→20:31)
[2022-11-13] MEDS ORDERED: BUMETANIDE 1 MG in SYRINGE 0 ML IV ONE ×2 (12:00→18:15)
--- NOTE | 2022-11-13 16:30 | Hospitalist Progress Note ---
Date of Service November 13, 2022 Assessment & Plan (1) Acute dyspnea: Plan: Worsening dyspnea without hypoxia Dyspnea and wheezing for 10 days. No history of COPD and generally does not wheeze.. No orthopnea Increase lower extremity edema for about 1 week Has been compliant with Bumex as an outpatient. Some pulmonary congestion on x-ray, CT with R>L pleural effusion, no evidence of PNA, normal procal, no abx indicated - Diuresis as below Heart failure with reduced ejection fraction History of heart transplant 06/2007 due to idiopathic dilated cardiomyopathy Follows with [facility] cardiology - Possibly acute exacerbation with LE edema, dyspnea Creatinine baseline around 1.61.7, 1.75 on admission and improved to 1.48 on 11/[address] with R>L pleural effusion, BNP is elevated but below patient's prior levels. - Doppler LLE neg for DVT; May also have venous stasis independent from his CHF - Home losartan on hold - Gentle diuresis with IV Bumex History of cardiac transplant On tacrolimus/prednisone chronically TTE 2021, EF 40-45% Has required steroid pulses and interventions for cellular rejection in the past Tacrolimus level pending GENNY on CKD 3 Prior baseline around 1.41.5, more recently it appears to be closer to 1.61.7 Admitting creatinine is 1.75, improved after diuresis to 1.48 on 11/13 Bumex as noted, trend BMP daily - Home losartan on hold HTN - Home losartan on hold - Monitor BP - if uptrending may add PRN S/p right upper lobe wedge resection Was performed due to persistent pneumo with air leak No acute change in management for this Type II DM Hold home antiglycemic's Goal BSG [id number] Continue glargine 10 units at bedtime, scaled SSI Glucose checks AC/at bedtime DVT prophylaxis: Heparin Disposition: Medical telemetry for suspected acute exacerbation of CHF CODE STATUS: Full code Diet: DM/low-salt (2) CHF (congestive heart failure): (3) CKD (chronic kidney disease) stage 3, GFR 30-59 ml/min: (4) Status post heart transplant: (5) Hypertension: (6) Hypercholesteremia: (7) Diabetes mellitus: Admission and Anticipated Discharge Date Admission Date: November 12, 2022 Subjective Still has ongoing dyspnea. Feels his leg edema has significantly improved from yesterday. No CP or palpitations. Unsure of goal dry weight. Review of Systems Review of Systems: Per Subjective Physical Exam Physical Exam: General: Well-appearing, NAD Neck: Supple, no cervical LAD Cardiovascular: RRR, no M/R/G Pulmonary: Diminished breath sounds throughout, especially at the bases, faint wheezing, nonlabored breathing at rest Extremities: Moving all extremities, L>R about 1+ pedal edema Integumentary: No suspicious rash or lesion on exposed skin Neurologic: AAOx3, no focal deficits Psychiatric: Appropriate mood/affect Results & Data Results & Data Vital Signs (Past 12 Hours) Vital Signs Temp Pulse Pulse Resp BP Pulse Ox O2 Del Method 11/13/22 15:50 36.9 C 100 H 20 151/100 H 97 Room Air 11/13/22 11:53 36.5 C 103 H 16 137/97 97 Room Air 11/13/22 07:56 36.5 C 106 H 16 150/95 H 97 Room Air 11/13/22 07:27 96 H Laboratory Results Hgb 13.3 Cr improved to 1.48 from 1.[address] with Mod R and Small L pleural effusion, no evidence of PNA Venous Doppler neg for DVT LLE PG Care Time/CCT Total # of Minutes Spent Total Time Spent with Patient: Total time spent is greater than 50% in coordination of care (as documented) at patient's floor/unit and/or counseling patient: Coding Level of Care Code 22991 SUB INP/OBS CARE 2/35MIN Diagnoses Acute dyspnea R06.00 CHF (congestive heart failure) I50.9 Heart failure type: unspecified Heart failure chronicity: unspecified CKD (chronic kidney disease) stage 3, GFR 30-59 ml/min N18.3 Status post heart transplant Z94.1 Hypertension I10 Hypertension type: essential hypertension Hypercholesteremia E78.00 Diabetes mellitus E11.9; Z79.4 Diabetes mellitus type: type 2 Diabetes mellitus fci insulin use: with equipment operator intermodal yard use Diabetes mellitus complication status: without complication (2) CHF (congestive heart failure) Heart failure type: unspecified Heart failure chronicity: unspecified Qualified Code(s): I50.9 - Heart failure, unspecified (5) Hypertension Hypertension type: essential hypertension Qualified Code(s): I10 - Essential (primary) hypertension (7) Diabetes mellitus Diabetes mellitus type: type 2 Diabetes mellitus equipment operator intermodal yard insulin use: with fci use Diabetes mellitus complication status: without complication Qualified Code(s): E11.9 - Type 2 diabetes mellitus without complications; Z79.4 - FDC (current) use of insulin
[2022-11-13] MEDS: NEOMYCIN/POLYMYXIN/HYDROCORT OPH SUSP 7.5 ML BTL OP SCH (20:28)
[2022-11-13] MEDS: BRIMONIDINE TARTRATE 0.2% 5ML OP SCH (20:28)
[2022-11-13] MEDS: TIMOLOL MALEATE 0.5% OP SOLN 5 ML BTL OP SCH (20:28)
[2022-11-13] MEDS: TAMSULOSIN HCL 0.4 MG CAP PO SCH (20:32)
[2022-11-13] MEDS: TERAZOSIN HCL 1 MG CAP PO SCH (20:32)
[2022-11-13] MEDS: PRAVASTATIN SOD 20 MG TAB PO SCH (20:32)
[2022-11-14 05:50] LABS: Basophils # (auto) 0.03 K/uL (0-0.2); Basophils % (auto) 0.5 %; Eosinophils # (auto) 0.12 K/uL (0-0.50); Eosinophils % (auto) 1.9 %; Hematocrit (blood only) 40.2 % (42.0-52.0); Immature Granulocytes # (auto) 0.03 K/uL (0.01-0.20); Immature Granulocytes % (auto) 0.5 %; Lymphocytes # (auto) 1.52 K/uL (1.2-3.4); Lymphocytes % (auto) 24.2 %; Mean Corpuscular Hgb Conc 32.3 g/dL (32.0-36.0); Mean Corpuscular Volume 86.5 fL (80.0-100.0); Mean Platelet Volume 10.2 fL (9.4-12.4); Monocytes # (auto) 0.89 K/uL (0.11-0.59); Monocytes % (auto) 14.2 %; Neutrophils # (auto) 3.69 K/uL (1.40-6.50); Neutrophils % (auto) 58.7 %; Platelet Count 152 K/uL (130-400); RDW Coefficient of Variation 14.5 % (11.5-14.5); RDW Standard Deviation 45.5 fL (36.4-46.3); Red Blood Count 4.65 M/uL (4.70-6.10); White Blood Count 6.28 K/ul (4.8-10.8)
[2022-11-14] MEDS: HEPARIN SOD 5,000 UNIT/0.5 ML VIAL SQ SCH (05:54)
[2022-11-14 06:04] LABS: BUN Creatinine Ratio 20.9 (10-20); Creatinine Clr Calc Pharmacy 54.2 ml/min; Est GFR (African American) 57.5 ml/min; Est GFR (Non-African American) 49.6 ml/min; Potassium 3.6 mmol/L (3.5-5.1)
[2022-11-14 08:38] VITALS: TEMP 97.7; O2SAT 96
[2022-11-14] MEDS: MAGNESIUM OXIDE 400 MG TAB PO SCH (09:13)
[2022-11-14] MEDS: buPROPion SR 100 MG TABCR PO SCH (09:13)
[2022-11-14] MEDS: INSULIN ASPART PER UNIT CHARGE SC SCH (09:13)
[2022-11-14] MEDS: PANTOprazole 40 MG TAB PO SCH (09:13)
[2022-11-14] MEDS: BRIMONIDINE TARTRATE 0.2% 5ML OP SCH (09:14)
[2022-11-14] MEDS: TIMOLOL MALEATE 0.5% OP SOLN 5 ML BTL OP SCH (09:14)
[2022-11-14] MEDS: NEOMYCIN/POLYMYXIN/HYDROCORT OPH SUSP 7.5 ML BTL OP SCH (09:14)
[2022-11-14] MEDS: predniSONE 5 MG TAB PO SCH (09:14)
[2022-11-14] MEDS: TACROLIMUS 0.5 MG CAP PO SCH (09:14)
[2022-11-14] MEDS: LANTUS PER UNIT CHARGE SQ SCH (09:24)
[2022-11-14] MEDS ORDERED: BUMETANIDE 1 MG TAB PO SCH (10:00)
--- NOTE | 2022-11-14 10:53 | Discharge Summary ---
Date of Service November 14, 2022 Admission HPI Per Admitting Provider Arian is a 72-year-old male with a past medical history of heart transplant, CKD, CHF, hypertension, hypercholesterolemia, GERD, DM, vitamin D deficiency who presents with He reports he has been very tired and more short of breath lately. Has had some wheezing and increase fluid retention/leg swelling. Minimal to almost no sputum production slightly yellow when he does cough something up. No fevers, or chills. Was a little cold earlier, but better with a blanket. No nausea, vomiting, or diarrhea. No chest pain or chest pressure. Shortness of breath is unchanged by position, denies orthopnea. - Vision remains impaired in the R eye. Sees white/clouded blurs in R eye. L eye is normal. 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 Was continued on tacrolimus/prednisone. Recommended for continued outpatient follow-up L>R leg swelling On admission: No leukocytosis Hemoglobin 13.6 VB.4 // BNP elevated at 318, last was around 700s with last episode of heart failure High-sensitivity troponin is normal at 10.9 - CThead: No acute finding. Hyperdense material of the right globe new from 2014. Likely postsurgical. This is consistent with patient's retinal detachment repair at [facility]. - CXR: Cardiomegaly with pulmonary vascular congestion, slight increase in right pleural effusion and associated right basilar opacity Admitting EKG: Sinus tachycardia with right bundle branch block. Nonspecific T wave change, no territorial signs of ischemia. QTc 497. Rate 102 Rec review from 09/14 cardiology note: Prednisone 5 mg daily Tacrolimus 0.5 mg Bumex 1 mg Admission Exam Per Admitting Provider General: A&Ox3. NAD. Cooperative. HEENT: Atraumatic, normocephalic. Diminished vision in right eye only able to see shadows and very blurry at baseline. Vision left eye intact. Hearing grossly intact Pulm: Scattered wheezes in right lower field, diminished in right lower lung. Otherwise moderate to limited air movement but grossly clear. No rales. Symmetrical chest rise. No increased work of breathing. No respiratory distress. Cardiac: RRR, -mrg. Radial pulses intact and symmetrical. Abdominal: Nontender, nondistended, soft. BS present. Extremities: Left greater than right pitting edema, trace ankle edema on the right 1+ on the left. Principal Diagnosis CHF Exacerbation Discharge Exam General: Well-appearing, NAD Cardiovascular: Mildly tachycardic, regular rhythm, no M/R/G Pulmonary: Mildly diminished breath sounds R>L base, otherwise CTAB, nonlabored breathing at rest Extremities: Moving all extremities, RLE with trace pitting edema, LLE with 1+ pedal edema Integumentary: No suspicious rash or lesion on exposed skin Neurologic: AAOx3, no focal deficits Psychiatric: Appropriate mood/affect Discharge Data Allergies Allergy/AdvReac Type Severity Reaction Status Date / Time naproxen Allergy Unknown BROKE OUT Verified 08/02/22 16:00 IN A SWEAT shellfish derived Allergy Unknown HIVES Verified 08/02/22 16:00 oxycodone AdvReac Unknown HALLUCINATI Verified 08/02/22 16:00 ONS Consultations 11/12/22 14:08 ED Decision to Admit Stat Ordered Studies 11/12/22 14:08 CT head/brain wo con Stat 11/12/22 15:54 CT chest diagnostic wo con Stat 11/12/22 18:10 US venous doppler LE LT Routine Hospital Course (1) Acute dyspnea: (2) Acute exacerbation of congestive heart failure: (3) Status post heart transplant: (4) Acute kidney injury superimposed on CKD: (5) Hypertension: (6) Diabetes mellitus: (7) Hypercholesteremia: Plan Worsening dyspnea without hypoxia most likely secondary to acute exacerbation of heart failure Dyspnea and wheezing for 10 days. No history of COPD and generally does not wheeze.. 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 Creatinine baseline around 1.61.7, 1.75 on admission and improved to 1.39 day of discharge after diuresis - Doppler LLE neg for DVT; May also have venous stasis independent from his CHF - Home losartan on hold and resumed upon discharge - Gentle diuresis with IV Bumex during hospitalization with about 5 pound weight loss and improvement of dyspnea and LE edema - Resume home Bumex 2mg PO daily upon discharge - Heart healthy diet with 2g salt restriction recommended - Note HR mildly elevated is normal HR range for patient History of cardiac transplant On tacrolimus/prednisone chronically TTE 2021, EF 40-45% Has required steroid pulses and interventions for cellular rejection in the past Tacrolimus level pending on discharge GENNY on CKD 3 Prior baseline around 1.41.5, more recently it appears to be closer to 1.61.7 Admitting creatinine is 1.75, improved to 1.39 day of discharge after diuresis Bumex as noted, trend BMP daily - Home losartan on hold during hospitalization but given improved Cr, resumed on discharge HTN - Home losartan on hold during hospitalization due to GENNY so BP remained above goal, but resumed on discharge - Monitor BP upon discharge S/p right upper lobe wedge resection Was performed due to persistent pneumo with air leak No acute change in management for this Type II DM Resume home antiglycemics DVT prophylaxis: Heparin --> discontinued on discharge Disposition: Medical telemetry --> discharged home to self care CODE STATUS: Full code Diet: DM/low-salt --> recommend this diet upon discharge Total Time Total Time Spent Total Time Spent (In Minutes): 35 Total Time Includes: Examination of the Patient, Discharge Planning and Medication Reconciliation Discharge Plan Discharge Items Patient Disposition: Home - Self-Care Reason For Visit: DYSPNEA, AOC CHF Discharge Diagnosis: Acute CHF Exacerbation Activity: Resume your previous activity Non-emergency contact: Primary Care Provider Call non-emergency contact if: your symptoms worsen Follow-up/Referrals: Guillermo Vega III, CRNP [Primary Care Provider] - Diet: Carb Consistent or DM2 and Low Sodium (2gm) Addtl Attending Provider Instructions: You were admitted with shortness of breath that was felt to be due to an exacerbation of heart failure causing fluid in the lungs and legs. This improved with IV diuretic medication and restriction of how much sodium you ate during your hospital stay. Continue to monitor your sodium intake when you leave. Make sure to monitor you weight daily. Your creatinine level for your kidney function also was worse when you came to the hospital, which improved with the diuretic. You can resume your normal home medications as previously. Make sure you have a close follow up appointment with your primary care provider. Pending Studies at Discharge: Yes Studies:: Tacrolimus level Stand-Alone Forms: My [facility], Smoking Cessation Medications and DC Order Prescriptions: Continued bupropion HCl 100 mg tablet sustained-release 12 hr See Rx Instructions .ROUTE .COMPLEX Qty: 180 3RF Dose Instruction: TAKE 1 TABLET TWICE A DAY Rx Instructions: TAKE 1 TABLET TWICE A DAY magnesium 500 mg Tablet 500 mg PO BID prednisone 5 mg tablet 5 mg PO DAILY terazosin 2 mg capsule 2 mg PO HS tamsulosin 0.4 mg capsule 0.4 mg PO HS omeprazole 20 mg capsule,delayed release(DR/EC) 20 mg PO BID bumetanide 1 mg tablet 2 mg PO QAM vitamin B complex Tablet 1 tab PO DAILY pravastatin 20 mg tablet 20 mg PO HS losartan [Cozaar] 100 mg tablet 100 mg PO DAILY tacrolimus 0.5 mg capsule 0.5 mg PO QAM tacrolimus 0.5 mg capsule 0.5 mg PO QPM cholecalciferol (vitamin D3) [Vitamin D3] 25 mcg (1,000 unit) Tablet 25 mcg PO DAILY calcium carbonate-vitamin D3 [Calcium 600 + D(3)] 600 mg-10 mcg (400 unit) Tablet 1 tab PO BID insulin glargine [Lantus Solostar U-100 Insulin] 100 unit/mL (3 mL) insulin pen 0 unit SUBCUT DIRECTED PRN (Reason: .high bsg) Ozempic 0.25 mg or 0.5 mg(2 mg/1.5 mL) pen injector 0.5 mg SUBCUT .QWED One A Day 1 tab PO DAILY Discharge Orders: Discharge Order (Routine); Ordered 11/14/22 Ordered By: Mary Smalls/Other Patient Handouts: Heart Failure: Breathe More Easily Admission Data Admit Date/Time: 11/12/22 18:10 Attending Provider: Mary Youngblood Admit Provider: Eduardo Coronado Primary Care Provider: Guillermo Vega III Other Providers: Eduardo Coronado Other Interventions: Discharge Summary Assessment (RN) Last Done: 11/14/22 10:58 Coding Level of Care Code 05776 INP/OBS DISCH >30 MIN Diagnoses Acute dyspnea R06.00 Acute exacerbation of congestive heart failure I50.9 Status post heart transplant Z94.1 Acute kidney injury superimposed on CKD N17.9; N18.9 Hypertension I10 Hypertension type: essential hypertension Diabetes mellitus E11.9; Z79.4 Diabetes mellitus complication status: without complication Diabetes mellitus intermodal customer service insulin use: with intermodal customer service use Diabetes mellitus type: type 2 Hypercholesteremia E78.00
[2022-11-14 10:58] VITALS: BP 153/102; PULSE 102
[2022-11-16 20:28] LABS: Fungitell (1-3)-B-D-Glucan <31 pg/mL
== END 2022-11-14 11:17 | disposition home or self-care (01) | DRG 292 ==
LOC: ED 11:40 → 2W 18:10 → SUATTDRO 18:10 → 2W 20:31